=== PATIENT | male | born 1990 | race Caucasian/White ===

== ENCOUNTER 2016-10-02 10:23 | Emergency (ER) | payer OTHER ==
[~2016-10-02] VITALS: Ht 180.3 cm; Wt 126.9 kg
[~2016-10-02 10:23] MED LIST: ALBU1AER9 INH; GLC/500 PO
[2016-10-02 10:27] VITALS: TEMP 36.5; Ht 180.3 cm; Wt 126.9 kg
[2016-10-02] MEDS ORDERED: IBUPROFEN 800 MG TAB PO STA (10:40)
--- NOTE | 2016-10-02 10:47 | EMERGENCY ROOM VISIT NOTE ---
ED Visit Note First contact with patient: 10:33 CHIEF COMPLAINT: Finger injury HISTORY OF PRESENT ILLNESS: This 26-year-old male patient presents to the emergency department after injuring the right second finger this morning at work. 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 The patient rates the pain as throbbing and 10/10. The patient has minimal range of motion of the finger due to pain. No numbness or tingling. No lacerations. No other injuries. The patient has not had previous fracture to this finger. The patient has taken nothing for the pain. REVIEW OF SYSTEMS: A 6 system review of systems was completed with positives and pertinent negatives in the HPI. ALLERGIES: See chart MEDICATIONS: See chart PMH: See chart SOCIAL HISTORY: See chart PHYSICAL EXAM: Vital Signs: Reviewed Nurse's notes, vital signs stable. GENERAL : Pleasant and cooperative, in no acute distress, but appears to be in pain, well-developed, well-nourished. MUSCULOSKELETAL: There is no deformity of the right second finger. The patient has intact flexion and intact extension of the right second finger and strength to resistance is intact. The PIP joint is maximally tender. There is no ligamentous instability. There is no laceration. Capillary refill less than 2 seconds. No tenderness of the remaining fingers or hand. Full range of motion of the wrist. NEURO: Alert and oriented to person, place, and time. Normal sensation to light and sharp touch. EMERGENCY DEPARTMENT COURSE: I examined the patient. Differential diagnosis includes contusion, fracture, crush injury. An x-ray of the right second finger was reviewed by myself and radiologist and showed no acute fracture, soft tissue swelling. The finger was immobilized with a metal splint by entry level lab technician under my direction and the position was satisfactory. Neurovascular status rechecked and intact. The patient was discharged home in good condition. Problem List Medical Problems: (1) Type 2 diabetes mellitus Status: Chronic Surgical Problems: (1) Hx of appendectomy Status: Resolved (2) Hx of cholecystectomy Status: Resolved Current/Historical Medications Scheduled Atorvastatin (Lipitor), 20 MG PO HS Lisinopril/Hctz (Zestoretic 20MG/12.5MG), 1 TAB PO DAILY Metformin Hcl (Glucophage), 500 MG PO HS Metformin Hcl (Glucophage), 1,000 MG PO BID Metoprolol Tartrate (Lopressor), 50 MG PO BID Montelukast Sodium (Singulair), 10 MG PO HS Scheduled PRN Albuterol Hfa (Ventolin Hfa), 2 PUFFS INH Q4H PRN for SOB/Wheezing Allergies Coded Allergies: Cefuroxime (Verified Allergy, Severe, throat swells, 10/02/16) Morphine (Verified Allergy, Severe, "THROAT SWELLS", 10/02/16) Penicillins (Verified Allergy, Unknown, throat swells, 10/02/16) Sulfa Antibiotics (Verified Allergy, Unknown, throat swells, 10/02/16) Vital Signs Date Time Temp Pulse Resp B/P (MAP) Pulse Ox O2 Delivery O2 Flow Rate FiO2 10/02/16 10:27 36.5 67 18 130/82 96 Room Air Medications Administered Medications (Trade) Dose Ordered Sig/Kb Route Start Time Stop Time Status Last Admin Dose Admin Ibuprofen (Motrin Tab) 800 mg NOW STAT PO 10/02/16 10:40 10/02/16 10:41 DC 10/02/16 10:50 800 MG Departure Information Impression Primary Impression: Contusion of right index finger without damage to nail, initial encounter Dispostion Home / Self-Care Condition GOOD Referrals Byron Devlin D.O. (PCP) Forms WORK / SCHOOL INSTRUCTIONS, HOME CARE DOCUMENTATION FORM, IMPORTANT VISIT INFORMATION Patient Instructions [facility] [place] [employer] Additional Instructions Ice and elevation for 24-48 hrs. Wear the splint for comfort. Ibuprofen 600 mg and Tylenol 1000 mg every 8 hrs as needed for pain. Follow up with your family doctor or an orthopedic surgeon if symptoms persist in 5-7 days.
--- NOTE | 2016-10-02 11:20 | DIAGNOSTIC IMAGING REPORT ---
RIGHT FINGER(S) MIN 2 VIEWS ROUTINE CLINICAL HISTORY: Right second finger injury. COMPARISON: Right hand radiographs February 21, 2016. FINDINGS: Alignment of the right second finger is anatomic. No acute fracture is identified. IMPRESSION: No acute fracture or dislocation of the right second finger. Electronically signed by: Orville Johnson M.D. 10/02/2016 11:18 AM Dictated Date/Time: 10/02/2016 11:16 AM
[2016-10-02 12:15] VITALS: BP 111/55; PULSE 57; O2SAT 97
[2016-12-30] MEDS ORDERED: MONT1TAB3 PO (10:46)
[2016-12-30] MEDS ORDERED: LISI-787 PO (10:46)
[2016-12-30] MEDS ORDERED: METO-551 PO (10:46)
[2016-12-30] MEDS ORDERED: ATOR-22 PO (10:46)
[2016-12-30] MEDS ORDERED: VNTHFA/IN INH (10:46)
[2016-12-30] MEDS ORDERED: METF-384 PO (10:46)
[2017-03-02] MEDS ORDERED: ASPI81TA28 PO (21:55)
== END 2016-10-02 12:17 | disposition home or self-care (01) ==
LOC: C.EDB 10:25 → C.EDD 12:17
DX: S60.021A Contusion of right index finger without damage to nail, initial encounter (principal); W23.0XXA Caught, crushed, jammed, or pinched between moving objects, initial encounter; Y92.89 Other specified places as the place of occurrence of the external cause; Y99.0 Civilian activity done for income or pay; E11.9 Type 2 diabetes mellitus without complications; Z90.49 Acquired absence of other specified parts of digestive tract; Z98.890 Other specified postprocedural states; Z79.84 Long term (current) use of oral hypoglycemic drugs; Z79.899 Other long term (current) drug therapy; Z88.0 Allergy status to penicillin; Z88.2 Allergy status to sulfonamides; Z88.5 Allergy status to narcotic agent; Z88.8 Allergy status to other drugs, medicaments and biological substances

== ENCOUNTER 2016-12-15 13:24 | Emergency (ER) | payer OTHER ==
[~2016-12-15] VITALS: Ht 180.3 cm; Wt 128.6 kg
[~2016-12-15 13:24] MED LIST changes: -ALBU1AER9 INH
[2016-12-15 13:33] VITALS: TEMP 36.7; Ht 180.3 cm; Wt 128.6 kg
[2016-12-15] MEDS ORDERED: ONDANSETRON INJ 2 MG/ML 2 ML VIAL IV STA (14:47)
[2016-12-15] MEDS ORDERED: SODIUM CHLORIDE 0.9% 1000ML 1,000 ML IV STA (14:47)
--- NOTE | 2016-12-15 14:51 | EMERGENCY ROOM VISIT NOTE ---
History Report prepared by Jonathan: Armin Rollins Under the Supervision of: Lor StephensO. First contact with patient: 14:37 Chief Complaint: ABDOMINAL PAIN Stated Complaint: STOMACH/SIDE PAIN, CHEST PAIN, SOB,CHEST TIGHTNESS Nursing Triage Summary: triage note: pt reports left abd pain. pt reports feeling short of breath and taking 4 breathing tx with no relief. History of Present Illness The patient is a 26 year old male who presents to the Emergency Room with complaints of persistent left-sided abdominal pain that started around 2029 last night. He says that the abdominal pain has been constant, and has been associated with bad chest tightness. The patient adds that the chest tightness has been constant as well. The patient says that he has been short of breath, and took multiple breathing treatments with no relief. He notes that he has had a minimal cough and has been shivering. He denies any back pain, fevers, urinary symptoms, melena or diarrhea. The patient says that he was admitted 2 years ago in 2 different hospitals for an inability to keep anything down, and ended up having his gallbladder removed, which took care of his abdominal issues. The patient says that he has no history of bowel infections. He takes medications daily for hypertension, hyperlipidemia, or diabetes. The patient chews tobacco and rarely drinks alcohol. Source of History: patient Onset: 2029 last night Position: abdomen (left) Timing: constant, other (persistent) Associated Symptoms: + cough, + chest pain, + SOB, No fevers, No back pain, No melena, No diarrhea, No urinary symptoms Note: Associated symptoms: Shivering. Review of Systems See HPI for pertinent positives & negatives. A total of 10 systems reviewed and were otherwise negative. Past Medical & Surgical Medical Problems: (1) Type 2 diabetes mellitus Surgical Problems: (1) Hx of appendectomy (2) Hx of cholecystectomy Family History Heart disease Social History Smoking Status: Former Smoker Smokeless Tobacco Use: Yes Alcohol Use: occasionally Drug Use: none Marital Status: Housing Status: lives with family Current/Historical Medications Scheduled Atorvastatin (Lipitor), 20 MG PO HS Lisinopril/Hctz (Zestoretic 20MG/12.5MG), 1 TAB PO DAILY Metformin Hcl (Glucophage), 1,000 MG PO BID Metoprolol Tartrate (Lopressor), 50 MG PO BID Montelukast Sodium (Singulair), 10 MG PO HS Scheduled PRN Albuterol Hfa (Ventolin Hfa), 2 PUFFS INH Q4H PRN for SOB/Wheezing Oxycodone Immediate Rel Tab (Roxicodone Ir), 1-2 TAB PO Q4H PRN for Severe Pain Allergies Coded Allergies: Cefuroxime (Verified Allergy, Severe, throat swells, 10/02/16) Morphine (Verified Allergy, Severe, "THROAT SWELLS", 10/02/16) Penicillins (Verified Allergy, Unknown, throat swells, 10/02/16) Sulfa Antibiotics (Verified Allergy, Unknown, throat swells, 10/02/16) Physical Exam Vital Signs Date Time Temp Pulse Resp B/P (MAP) Pulse Ox O2 Delivery O2 Flow Rate FiO2 12/15/16 16:27 75 20 154/94 96 Room Air 12/15/16 15:55 71 12/15/16 14:59 91 20 148/100 98 Room Air 12/15/16 13:33 36.7 84 20 179/99 95 Room Air Physical Exam GENERAL: Patient is awake, alert, mildly anxious appearing and uncomfortable. EYES: The conjunctivae are clear. The pupils are round and reactive. EARS, NOSE, MOUTH AND THROAT: The nose is without any evidence of any deformity. Mucous membranes are moist tongue is midline NECK: The neck is nontender and supple. RESPIRATORY: Normal respiratory effort is noted there is no evidence of wheezing rhonchi or rales CARDIOVASCULAR: Regular rate and rhythm noted there no murmurs rubs or gallops normal S1 normal S2 GASTROINTESTINAL: The abdomen is mildly distended but soft. Tenderness over left lower quadrant, no guarding or rigidity appreciated. BACK: No midline tenderness or or step-off noted range of motion in flexion extension as well as rotation no signs of muscle spasm noted MUSCULOSKELETAL/EXTREMITIES: There is no evidence of gross deformity full range of motion is noted in the hips and shoulders SKIN: There is no obvious evidence of any rash. There are no petechiae, pallor or cyanosis noted. NEUROLOGIC: Patient is awake alert and oriented x3. Medical Decision & Procedures ER Provider Diagnostic Interpretation: Radiology results as stated below per my review and radiologist interpretation: CHEST ONE VIEW PORTABLE CLINICAL HISTORY: 26 years-old Male presenting with ABDOMINAL PAIN/GI. TECHNIQUE: Portable upright AP view of the chest was obtained. COMPARISON: 07/30/2015. FINDINGS: Cardiomediastinal silhouette normal. Lungs and pleural spaces clear. Osseous structures normal. Upper abdomen normal. IMPRESSION: 1. No acute cardiopulmonary disease. Electronically signed by: Willi Suresh M.D. 12/15/2016 3:19 PM Dictated Date/Time: 12/15/2016 3:19 PM ABD/PELVIS NO IV OR ORAL CONT CLINICAL HISTORY: 26 years-old Male presenting with left flank pain, history of cholecystectomy. TECHNIQUE: Multidetector CT of the abdomen and pelvis was performed without the use of intravenous contrast. IV contrast: None. A dose lowering technique was used consistent with the principles of ALARA (as low as reasonably achievable). COMPARISON: None. CT DOSE (mGy.cm): The estimated cumulative dose is 1316.50 mGy.cm. FINDINGS: [employer] topogram: Cholecystectomy clips noted. Lung bases: Lung bases clear. No pericardial or pleural effusion. Liver: Normal morphology. Hepatic steatosis. Biliary: No gross biliary ductal dilatation allowing for noncontrast technique. Gallbladder surgically absent. Pancreas: Normal. Spleen: Mildly enlarged measuring 14 cm in maximal sagittal dimension. Adrenal glands: Normal. Kidneys and ureters: Nonobstructing 2 to 3 mm calculus in the interpolar region of the left kidney. No hydronephrosis. Ureters normal. Bladder: Incompletely evaluated secondary to underdistention. Pelvic organs: Prostate and seminal vesicles normal. Bowel: Limited sigmoid diverticula. Postsurgical changes of appendectomy. No bowel obstruction. Peritoneal cavity: No free fluid or intraperitoneal gas. Vasculature: Normal noncontrast appearance. Lymph nodes: Prominent nonspecific portacaval lymph node, possibly reactive. Abdominal wall: Normal. Musculoskeletal: Minimal anterior vertebral body height loss of lower thoracic vertebral bodies likely within the range of normal. No acute osseous injury or destructive osseous lesion. IMPRESSION: 1. Hepatic steatosis. 2. Mild splenomegaly. 3. 2 to 3 mm nonobstructing left renal calculus. Electronically signed by: Willi Suresh M.D. 12/15/2016 3:27 PM Dictated Date/Time: 12/15/2016 3:21 PM Laboratory Results 12/15/16 14:50 Red Blood Count 5.79, Mean Corpuscular Volume 87.6, Mean Corpuscular Hemoglobin 32.5, Mean Corpuscular Hemoglobin Concent 37.1, Mean Platelet Volume 10.3, Neutrophils (%) (Auto) 66.1, Lymphocytes (%) (Auto) 21.8, Monocytes (%) (Auto) 8.7, Eosinophils (%) (Auto) 2.2, Basophils (%) (Auto) 0.8, Neutrophils # (Auto) 6.88, Lymphocytes # (Auto) 2.27, Monocytes # (Auto) 0.91, Eosinophils # (Auto) 0.23, Basophils # (Auto) 0.08 12/15/16 14:50 Test 12/15/16 14:50 White Blood Count 10.41 K/uL (4.8-10.8) Red Blood Count 5.79 M/uL (4.7-6.1) Hemoglobin 18.8 g/dL (14.0-18.0) Hematocrit 50.7 % (42-52) Mean Corpuscular Volume 87.6 fL (80-100) Mean Corpuscular Hemoglobin 32.5 pg (25-34) Mean Corpuscular Hemoglobin Concent 37.1 g/dl (32-36) Platelet Count 123 K/uL (130-400) Mean Platelet Volume 10.3 fL (7.4-10.4) Neutrophils (%) (Auto) 66.1 % Lymphocytes (%) (Auto) 21.8 % Monocytes (%) (Auto) 8.7 % Eosinophils (%) (Auto) 2.2 % Basophils (%) (Auto) 0.8 % Neutrophils # (Auto) 6.88 K/uL (1.4-6.5) Lymphocytes # (Auto) 2.27 K/uL (1.2-3.4) Monocytes # (Auto) 0.91 K/uL (0.11-0.59) Eosinophils # (Auto) 0.23 K/uL (0-0.5) Basophils # (Auto) 0.08 K/uL (0-0.2) RDW Standard Deviation 41.3 fL (36.4-46.3) RDW Coefficient of Variation 12.9 % (11.5-14.5) Immature Granulocyte % (Auto) 0.4 % Immature Granulocyte # (Auto) 0.04 K/uL (0.00-0.02) Prothrombin Time 10.0 SECONDS (9.0-12.0) Prothromb Time International Ratio 0.9 (0.9-1.1) Activated Partial Thromboplast Time 25.7 SECONDS (21.0-31.0) Partial Thromboplastin Ratio 1.0 Urine Color YELLOW Urine Appearance CLEAR (CLEAR) Urine pH 7.0 (4.5-7.5) Urine Specific [place] 1.039 (1.000-1.030) Urine Protein 1+ (NEG) Urine Glucose (UA) 3+ (NEG) Urine Ketones NEG (NEG) Urine Occult Blood NEG (NEG) Urine Nitrite NEG (NEG) Urine Bilirubin NEG (NEG) Urine Urobilinogen NEG (NEG) Urine Leukocyte Esterase NEG (NEG) Urine WBC (Auto) 0 /hpf (0-5) Urine RBC (Auto) 0-4 /hpf (0-4) Urine Hyaline Casts (Auto) 0 /lpf (0-5) Urine Epithelial Cells (Auto) 0-5 /lpf (0-5) Urine Bacteria (Auto) NEG (NEG) Anion Gap 9.0 mmol/L (3-11) Est Creatinine Clear Calc Drug Dose 181.0 ml/min Estimated GFR () 140.7 Estimated GFR (Non- 121.4 BUN/Creatinine Ratio 9.5 (10-20) Calcium Level 9.0 mg/dl (8.5-10.1) Total Bilirubin 0.8 mg/dl (0.2-1) Direct Bilirubin 0.2 mg/dl (0-0.2) Aspartate Amino Transf (AST/SGOT) 45 U/L (15-37) Alanine Aminotransferase (ALT/SGPT) 92 U/L (12-78) Alkaline Phosphatase 60 U/L (45-117) Troponin I < 0.015 ng/ml (0-0.045) Total Protein 7.5 gm/dl (6.4-8.2) Albumin 3.6 gm/dl (3.4-5.0) Lipase 80 U/L (73-393) Laboratory results per my review. Medications Administered Medications (Trade) Dose Ordered Sig/Kb Route Start Time Stop Time Status Last Admin Dose Admin Sodium Chloride 1,000 ml @ 999 mls/hr Q1H1M STAT IV 12/15/16 14:47 12/15/16 15:47 DC 12/15/16 14:55 999 MLS/HR Ondansetron HCl (Zofran Inj) 4 mg NOW STAT IV 12/15/16 14:47 12/15/16 14:48 DC 12/15/16 14:55 4 MG Hydromorphone HCl (Dilaudid Inj) 0.5 mg Q30M PRN IV 12/15/16 15:00 12/15/16 16:37 DC 12/15/16 14:56 0.5 MG ECG Indication: abdominal pain Rate (beats per minute): 75 Rhythm: normal sinus Findings: no ectopy, other (no acute ST segment abnormalities) Change: no significant change (compared to July 30 2015) ED Course 1440: The patient was evaluated in room B5. A complete history and physical examination were performed. 1447: Ordered Zofran Inj 4 mg IV, NSS 1000 ml @ 999 mls/hr IV. 1500: Ordered Dilaudid Inj 0.5 mg IV PRN. 1605: Upon reevaluation, the patient is feeling better. I discussed the results and treatment plan with him. He verbalized agreement of the treatment plan. He was discharged home. Medical Decision Differential diagnosis: Etiologies such as appendicitis, diverticulitis, PUD, biliary pathology, UTI, pancreatitis, obstruction, mesenteric ischemia, aortic pathology, infections, inflammatory bowel disease, renal colic, as well as others were entertained. Nursing notes reviewed. The patient is a 27-year-old male who presented to emergency department for evaluation of left-sided abdominal pain. The patient's physical exam was consistent with reproducible left lower quadrant abdominal pain. He also complained of chest pain and chest tightness. He has had ongoing discomfort in his chest for the last few days. I discussed the patient's laboratory and radiographic studies with him. I also discussed the limitations of the emergency department workup for chest pain with him. He was encouraged to rest and avoid any strenuous activity. He was also encouraged to continue all medications as prescribed. He was also encouraged to follow-up with his family doctor this week for reevaluation but return to the emergency Department immediately if symptoms change worsen or the need arises. Medication Reconcilliation Current Medication List: was personally reviewed by me Blood Pressure Screening Patient's blood pressure: Elevated blood pressure Blood pressure disposition: Elevated BP felt to be situational Impression Primary Impression: Chest pain Additional Impression: LLQ abdominal pain Scribe Attestation The scribe's documentation has been prepared under my direction and personally reviewed by me in its entirety. I confirm that the note above accurately reflects all work, treatment, procedures, and medical decision making performed by me. Departure Information Dispostion Home / Self-Care Prescriptions Oxycodone Immediate Rel Tab (ROXICODONE IR) 5 Mg Tab 1-2 TAB PO Q4H Y for Severe Pain, #15 TAB Prov: Kadeem Blackwood, DO 12/15/16 Referrals Byron Devlin D.O. (PCP) Forms HOME CARE DOCUMENTATION FORM, IMPORTANT VISIT INFORMATION, Work Instructions Patient Instructions Abdominal Pain, ED Chest Pain Atypical Unkn Cause, My [facility] Additional Instructions Continue all medications as prescribed. Rest and avoid any strenuous activity. Return to emergency room immediately if symptoms change worsen or the need arises. Follow-up with your family doctor soon as possible. Problem Qualifiers Primary Impression: Chest pain Chest pain type: unspecified Qualified Codes: R07.9 - Chest pain, unspecified
[2016-12-15] MEDS ORDERED: HYDROmorphone INJ 0.5 MG/0.5 ML SYR IV PRN (15:00)
[2016-12-15 15:01] LABS: BASO % 0.8 %; BASO ABS # 0.08 K/uL (0-0.2); COMPLETE YES; EOS % 2.2 %; HEMATOCRIT 50.7 % (42-52); IG% 0.4 %; LYMPH % 21.8 %; LYMPH ABS # 2.27 K/uL (1.2-3.4); MEAN CELL VOLUME 87.6 fL (80-100); MEAN CORPUSCULAR HEMOGLOBIN 32.5 pg (25-34); MEAN CORPUSCULAR HGB CONC 37.1 g/dl (32-36); MEAN PLATELET VOLUME 10.3 fL (7.4-10.4); MONO % 8.7 %; NEUT % 66.1 %; PLATELET COUNT 123 K/uL (130-400); RED BLOOD COUNT 5.79 M/uL (4.7-6.1); WHITE BLOOD COUNT 10.41 K/uL (4.8-10.8)
[2016-12-15 15:04] LABS: URINE APPEARANCE CLEAR (CLEAR); URINE BILIRUBIN NEG (NEG); URINE COLOR YELLOW; URINE EPITHELIAL CELL AUTO 0-5 /lpf (0-5); URINE NITRITE NEG (NEG); URINE SPECIFIC GRAVITY 1.039 (1.000-1.030); UROBILINOGEN NEG (NEG)
[2016-12-15 15:06] LABS: MANUAL MICROSCOPIC REQUIRED? NO; REVIEW REQ? NO
[2016-12-15 15:09] LABS: INR 0.9 (0.9-1.1)
--- NOTE | 2016-12-15 15:20 | DIAGNOSTIC IMAGING REPORT ---
CHEST ONE VIEW PORTABLE CLINICAL HISTORY: 26 years-old Male presenting with ABDOMINAL PAIN/GI. TECHNIQUE: Portable upright AP view of the chest was obtained. COMPARISON: 07/30/2015. FINDINGS: Cardiomediastinal silhouette normal. Lungs and pleural spaces clear. Osseous structures normal. Upper abdomen normal. IMPRESSION: 1. No acute cardiopulmonary disease. Electronically signed by: Willi Suresh M.D. 12/15/2016 3:19 PM Dictated Date/Time: 12/15/2016 3:19 PM
[2016-12-15 15:28] LABS: ALKALINE PHOSPHATASE 60 U/L (45-117); BLOOD UREA NITROGEN 8 mg/dl (7-18); BUN/CREATININE RATIO 9.5 (10-20); CARBON DIOXIDE 29 mmol/L (21-32); CHLORIDE 99 mmol/L (98-107); CREATININE 0.86 mg/dl (0.60-1.40); GLUCOSE 265 mg/dl (70-99)
--- NOTE | 2016-12-15 15:29 | DIAGNOSTIC IMAGING REPORT ---
ABD/PELVIS NO IV OR ORAL CONT CLINICAL HISTORY: 26 years-old Male presenting with left flank pain, history of cholecystectomy. TECHNIQUE: Multidetector CT of the abdomen and pelvis was performed without the use of intravenous contrast. IV contrast: None. A dose lowering technique was used consistent with the principles of ALARA (as low as reasonably achievable). COMPARISON: None. CT DOSE (mGy.cm): The estimated cumulative dose is 1316.50 mGy.cm. FINDINGS: [employer] topogram: Cholecystectomy clips noted. Lung bases: Lung bases clear. No pericardial or pleural effusion. Liver: Normal morphology. Hepatic steatosis. Biliary: No gross biliary ductal dilatation allowing for noncontrast technique. Gallbladder surgically absent. Pancreas: Normal. Spleen: Mildly enlarged measuring 14 cm in maximal sagittal dimension. Adrenal glands: Normal. Kidneys and ureters: Nonobstructing 2 to 3 mm calculus in the interpolar region of the left kidney. No hydronephrosis. Ureters normal. Bladder: Incompletely evaluated secondary to underdistention. Pelvic organs: Prostate and seminal vesicles normal. Bowel: Limited sigmoid diverticula. Postsurgical changes of appendectomy. No bowel obstruction. Peritoneal cavity: No free fluid or intraperitoneal gas. Vasculature: Normal noncontrast appearance. Lymph nodes: Prominent nonspecific portacaval lymph node, possibly reactive. Abdominal wall: Normal. Musculoskeletal: Minimal anterior vertebral body height loss of lower thoracic vertebral bodies likely within the range of normal. No acute osseous injury or destructive osseous lesion. IMPRESSION: 1. Hepatic steatosis. 2. Mild splenomegaly. 3. 2 to 3 mm nonobstructing left renal calculus. Electronically signed by: Willi Suresh M.D. 12/15/2016 3:27 PM Dictated Date/Time: 12/15/2016 3:21 PM
[2016-12-15 15:43] LABS: AST/SGOT 45 U/L (15-37)
[2016-12-15 15:44] LABS: ALT/SGPT 92 U/L (12-78); POTASSIUM 3.9 mmol/L (3.5-5.1); SODIUM 137 mmol/L (136-145)
[2016-12-15] MEDS ORDERED: OXYC1TAB3 PO (16:16)
[2016-12-15 16:27] VITALS: BP 154/94; PULSE 75; O2SAT 96
[2016-12-30] MEDS ORDERED: ATOR-22 PO (10:46)
[2016-12-30] MEDS ORDERED: LISI-787 PO (10:46)
[2016-12-30] MEDS ORDERED: MONT1TAB3 PO (10:46)
[2016-12-30] MEDS ORDERED: METF-384 PO (10:46)
[2016-12-30] MEDS ORDERED: VNTHFA/IN INH (10:46)
[2016-12-30] MEDS ORDERED: METO-551 PO (10:46)
== END 2016-12-15 16:28 | disposition home or self-care (01) ==
LOC: C.EDB 13:26
DX: R07.9 Chest pain, unspecified (principal); R10.32 Left lower quadrant pain; E11.9 Type 2 diabetes mellitus without complications; Z90.49 Acquired absence of other specified parts of digestive tract; Z98.890 Other specified postprocedural states; Z87.891 Personal history of nicotine dependence; Z79.84 Long term (current) use of oral hypoglycemic drugs; Z79.899 Other long term (current) drug therapy; Z88.0 Allergy status to penicillin; Z88.2 Allergy status to sulfonamides; Z88.5 Allergy status to narcotic agent; Z88.8 Allergy status to other drugs, medicaments and biological substances; Z82.49 Family history of ischemic heart disease and other diseases of the circulatory system

== ENCOUNTER 2016-12-17 17:22 | Emergency (ER) | payer OTHER ==
[~2016-12-17] VITALS: Ht 180.3 cm; Wt 128.1 kg
[~2016-12-17 17:22] MED LIST changes: -GLC/500 PO; +OXYC1TAB3 PO
[2016-12-17 17:28] VITALS: TEMP 36.9; Ht 180.3 cm; Wt 128.1 kg
[2016-12-17] MEDS ORDERED: ONDANSETRON INJ 2 MG/ML 2 ML VIAL IV STA (17:55)
[2016-12-17] MEDS ORDERED: MoRPHine SULFATE 10 MG/ML CARP/VIAL IV STA (17:55)
[2016-12-17] MEDS ORDERED: SODIUM CHLORIDE 0.9% 1000ML 1,000 ML IV STA (17:55)
--- NOTE | 2016-12-17 17:57 | EMERGENCY ROOM VISIT NOTE ---
History Report prepared by Jonathan: Portillo Gibbons Under the Supervision of: Dr. Orlando Churchill M.D. First contact with patient: 17:37 Chief Complaint: ABDOMINAL PAIN Stated Complaint: SEVERE L ABD PAIN, HERE 2 DAYS AGO History of Present Illness The patient is a 26 year old white male with a past medical history of hypertension, hyperlipidemia, asthma, and a 2-3 mm nonobstructing kidney stone without hydronephrosis via CT who presents to the ED with a cc of left sided abdominal pain beginning recently. Positive chills, nausea, and pain with urination. Negative trauma, falls, fever, penile pain, scrotal pain, testicular pain, hematochezia, back pain. The patient was here in the ED 3 days ago with chest tightness. He received a CT scan that showed a left sided kidney stone. Since then, he has not had an appetite and his abdominal pain began. His pain worsens with movement. He does not take any blood thinners. Source of History: patient Onset: recently Position: abdomen (left) Symptom Intensity: moderate Quality: sharp Timing: constant Modifying Factors (Worsening): movement Associated Symptoms: + chills, + nausea, + urinary symptoms, No fevers, No sorethroat, No vomiting, No back pain, No hematochezia Review of Systems See HPI for pertinent positives and negatives. A total of ten systems were reviewed and were otherwise negative. Past Medical & Surgical Medical Problems: (1) Type 2 diabetes mellitus Surgical Problems: (1) Hx of appendectomy (2) Hx of cholecystectomy Family History Heart disease Social History Smoking Status: Former Smoker Smokeless Tobacco Use: Yes Alcohol Use: occasionally Drug Use: none Marital Status: Housing Status: lives with family Occupation Status: employed Current/Historical Medications Scheduled Atorvastatin (Lipitor), 20 MG PO HS Lisinopril/Hctz (Zestoretic 20MG/12.5MG), 1 TAB PO DAILY Loratadine (Claritin), 10 MG PO DAILY Metformin Hcl (Glucophage), 1,000 MG PO BID Metoprolol Tartrate (Lopressor), 50 MG PO BID Montelukast Sodium (Singulair), 10 MG PO HS Ondasetron Odt (Zofran Odt), 4 MG SL Q6H Scheduled PRN Albuterol Hfa (Ventolin Hfa), 2 PUFFS INH Q4H PRN for SOB/Wheezing Hydrocodone/Acetaminophen 5MG/325MG ([place] 5MG/325MG), 1 TAB PO TID PRN for Pain Oxycodone Immediate Rel Tab (Roxicodone Ir), 1-2 TAB PO Q4H PRN for Severe Pain Tramadol (Ultram), 1 TAB PO TID PRN for Pain Allergies Coded Allergies: Cefuroxime (Verified Allergy, Severe, throat swells, 12/17/16) Morphine (Verified Allergy, Severe, "THROAT SWELLS", 12/17/16) Penicillins (Verified Allergy, Unknown, throat swells, 12/17/16) Sulfa Antibiotics (Verified Allergy, Unknown, throat swells, 12/17/16) Physical Exam Vital Signs Date Time Temp Pulse Resp B/P (MAP) Pulse Ox O2 Delivery O2 Flow Rate FiO2 12/17/16 21:04 69 18 147/90 96 12/17/16 20:21 72 18 165/82 77 Room Air 12/17/16 17:28 36.9 88 20 171/98 95 Room Air Physical Exam GENERAL: Awake, alert, well-appearing, NAD, obese HENT: Normocephalic, atraumatic. Dental stains secondary to tobacco use. EYES: Normal conjunctiva. Sclera non-icteric. NECK: Supple. No nuchal rigidity. FROM. RESPIRATORY: CTAB, no rhonchi, wheezing, crackles CARDIAC: RRR, no MRG ABDOMEN: Soft, left sided LLQ tenderness to palpation, no obvious masses or erythema. ND, BS+, No suprapubic tenderness. No scrotal, penile, or testicular tenderness. No scrotal swelling. MSK: No chest wall TTP, no LE edema NEURO: GCS 15, CN 2-12 intact, moves all 4s on command SKIN: No rash or jaundice noted. Medical Decision & Procedures Laboratory Results 12/17/16 18:03 Red Blood Count 5.47, Mean Corpuscular Volume 88.5, Mean Corpuscular Hemoglobin 32.7, Mean Corpuscular Hemoglobin Concent 37.0, Mean Platelet Volume 10.9, Neutrophils (%) (Auto) 58.3, Lymphocytes (%) (Auto) 28.8, Monocytes (%) (Auto) 8.7, Eosinophils (%) (Auto) 2.9, Basophils (%) (Auto) 0.9, Neutrophils # (Auto) 4.70, Lymphocytes # (Auto) 2.32, Monocytes # (Auto) 0.70, Eosinophils # (Auto) 0.23, Basophils # (Auto) 0.07 12/17/16 18:03 12/17/16 20:21 Test 12/17/16 18:03 12/17/16 18:05 12/17/16 20:21 White Blood Count 8.05 K/uL (4.8-10.8) Red Blood Count 5.47 M/uL (4.7-6.1) Hemoglobin 17.9 g/dL (14.0-18.0) Hematocrit 48.4 % (42-52) Mean Corpuscular Volume 88.5 fL (80-100) Mean Corpuscular Hemoglobin 32.7 pg (25-34) Mean Corpuscular Hemoglobin Concent 37.0 g/dl (32-36) Platelet Count 133 K/uL (130-400) Mean Platelet Volume 10.9 fL (7.4-10.4) Neutrophils (%) (Auto) 58.3 % Lymphocytes (%) (Auto) 28.8 % Monocytes (%) (Auto) 8.7 % Eosinophils (%) (Auto) 2.9 % Basophils (%) (Auto) 0.9 % Neutrophils # (Auto) 4.70 K/uL (1.4-6.5) Lymphocytes # (Auto) 2.32 K/uL (1.2-3.4) Monocytes # (Auto) 0.70 K/uL (0.11-0.59) Eosinophils # (Auto) 0.23 K/uL (0-0.5) Basophils # (Auto) 0.07 K/uL (0-0.2) RDW Standard Deviation 40.9 fL (36.4-46.3) RDW Coefficient of Variation 12.6 % (11.5-14.5) Immature Granulocyte % (Auto) 0.4 % Immature Granulocyte # (Auto) 0.03 K/uL (0.00-0.02) Anion Gap 9.0 mmol/L (3-11) Est Creatinine Clear Calc Drug Dose 184.9 ml/min Estimated GFR () 142.0 Estimated GFR (Non- 122.6 BUN/Creatinine Ratio 11.5 (10-20) Calcium Level 8.8 mg/dl (8.5-10.1) Total Bilirubin 0.7 mg/dl (0.2-1) Alanine Aminotransferase (ALT/SGPT) 91 U/L (12-78) Alkaline Phosphatase 64 U/L (45-117) Total Protein 7.2 gm/dl (6.4-8.2) Albumin 3.5 gm/dl (3.4-5.0) Lipase 99 U/L (73-393) Beta-Hydroxybutyric Acid 1.15 mg/dL (0.2-2.81) Urine Color YELLOW Urine Appearance CLEAR (CLEAR) Urine pH 5.0 (4.5-7.5) Urine Specific [place] 1.034 (1.000-1.030) Urine Protein NEG (NEG) Urine Glucose (UA) 3+ (NEG) Urine Ketones NEG (NEG) Urine Occult Blood NEG (NEG) Urine Nitrite NEG (NEG) Urine Bilirubin NEG (NEG) Urine Urobilinogen NEG (NEG) Urine Leukocyte Esterase NEG (NEG) Direct Bilirubin mg/dl (0-0.2) Aspartate Amino Transf (AST/SGOT) 49 U/L (15-37) Chemistry Specimen Hemolysis Laboratory results reviewed by me Medications Administered Medications (Trade) Dose Ordered Sig/Kb Route Start Time Stop Time Status Last Admin Dose Admin Sodium Chloride 1,000 ml @ 999 mls/hr Q1H1M STAT IV 12/17/16 17:55 12/17/16 18:55 DC 12/17/16 18:10 999 MLS/HR Ondansetron HCl (Zofran Inj) 4 mg NOW STAT IV 12/17/16 17:55 12/17/16 17:58 DC 12/17/16 18:10 4 MG Fentanyl Citrate (Fentanyl Inj) 100 mcg NOW ONCE IV 12/17/16 18:15 12/17/16 18:16 DC 12/17/16 18:18 100 MCG Acetaminophen/ Hydrocodone Bitart ([place] 10/325 Tab) 1 tab NOW ONCE PO 12/17/16 19:15 12/17/16 19:16 DC 12/17/16 19:13 1 TAB Tramadol HCl (Ultram Tab) 50 mg NOW STAT PO 12/17/16 19:06 12/17/16 19:07 DC 12/17/16 19:14 50 MG Ibuprofen (Advil Tab) 400 mg NOW STAT PO 12/17/16 19:06 12/17/16 19:07 DC 12/17/16 19:14 400 MG Hydromorphone HCl (Dilaudid Inj) 0.5 mg NOW STAT IV 12/17/16 19:57 12/17/16 19:58 DC 12/17/16 20:17 0.5 MG Acetaminophen/ Hydrocodone Bitart ([place] 5/325mg Home Pack) 1 homepack UD ONCE PO 12/17/16 21:15 12/17/16 21:16 DC 12/17/16 21:15 1 HOMEPACK Ondansetron HCl (ZOFRAN ODT 4MG Home Pack) 1 homepack UD ONCE PO 12/17/16 21:15 12/17/16 21:16 DC 12/17/16 21:15 1 HOMEPACK ED Course 173: The patient was evaluated in room A10. A complete history and physical exam was performed. 1951: The patient's nausea has improved, but he is still having some pain. 2100: I reevaluated the patient. Discussed results and discharge instructions: He verbalized understanding and agreement. The patient is ready for discharge. Medical Decision The patient is a 26 year old white male with a past medical history of hypertension, hyperlipidemia, asthma, and a 2-3 mm nonobstructing kidney stone without hydronephrosis via CT who presents to the ED with a cc of left sided abdominal pain beginning recently. Positive chills, nausea, and pain with urination. Negative trauma, falls, fever, penile pain, scrotal pain, testicular pain, hematochezia, back pain. Triage Nursing notes reviewed. The patient's presentation and history were concerning for kidney stone, UTI, ureterolithiasis, diverticulitis, and hernia. Patient was recently seen for some similar symptoms earlier in the week. Patient did have mild nausea but no vomiting. Patient denied any scrotal pain or swelling and no penile pain. Patient has had regular bowel movements and they're without blood was likely diverticulitis given the bowel movements no obstruction. Patient's pain did improve. Patient was noted to have a small nonobstructing renal calculi on his CT was completed 2 days prior. This is likely the most attributable source of his pain in that he had a recent CT scan that was negative and his white count is normal. Patient has fairly unremarkable abdominal labs. Patient did tolerate by mouth. Patient was given medications to help for pain control. Patient was told to return if he had worsening abdominal pain that caused him to vomit profusely, high fever, or inability to tolerate his by mouth medications. Ambulated w/o difficulty. Given f/u, d/c, and return precautions. Medication Reconcilliation Current Medication List: was personally reviewed by me Blood Pressure Screening Patient's blood pressure: Elevated blood pressure Blood pressure disposition: Elevated BP felt to be situational Impression Primary Impression: Left lower quadrant pain Additional Impressions: Nephrolithiasis Encounter for tobacco use cessation counseling Scribe Attestation The scribe's documentation has been prepared under my direction and personally reviewed by me in its entirety. I confirm that the note above accurately reflects all work, treatment, procedures, and medical decision making performed by me. Departure Information Dispostion Home / Self-Care Prescriptions Hydrocodone/Acetaminophen 5MG/325MG ([place] 5MG/325MG) Tab 1 TAB PO TID Y for Pain for 30 Days, #15 TAB PRN PAIN Prov: Orlando Churchill M.D. 12/17/16 Tramadol (Ultram) 50 Mg Tab 1 TAB PO TID Y for Pain for 30 Days, #30 TAB Prov: Orlando Churchill M.D. 12/17/16 Ondasetron Odt (ZOFRAN ODT) 4 Mg Tab 4 MG SL Q6H for Nausea, #12 TAB Prov: Orlando Churchill M.D. 12/17/16 Referrals Byron Devlin D.O. (PCP) Forms HOME CARE DOCUMENTATION FORM, IMPORTANT VISIT INFORMATION Patient Instructions Abdominal Pain, ED Smoking Cessation, Kidney Stones, Kidney Stones - [facility], Kidney Stones Expectant Therapy, [facility] Additional Instructions Please return to the emergency department if you have worsening or recurrent symptoms not amenable to at-home treatment. Please call for a follow-up appointment with her primary care physician. Please take your medications as prescribed. If you have other concerns and/or complaints please feel free to also call your primary care physician's office or return the ED for further evaluation, management, and treatment. He may take up to 800 mg of Motrin or ibuprofen every 6 hours. Please take with food and do not take more than 2 consecutive days. He may take up to 1000 mg of Tylenol or acetaminophen every 6 hours no more than 4000 mg in a 24-hour period. Please make sure that he take your [place] that you take into account the Tylenol in the [place] which is 325 mg per tablet. Work Instructions Return To Work: 1 day Problem Qualifiers
[2016-12-17] MEDS ORDERED: FENTANYL CITRATE INJ 50 MCG/1 ML 2 ML VIAL IV ONE (18:15)
[2016-12-17 18:16] LABS: BASO % 0.9 %; BASO ABS # 0.07 K/uL (0-0.2); COMPLETE YES; EOS % 2.9 %; HEMATOCRIT 48.4 % (42-52); IG% 0.4 %; LYMPH % 28.8 %; LYMPH ABS # 2.32 K/uL (1.2-3.4); MEAN CELL VOLUME 88.5 fL (80-100); MEAN CORPUSCULAR HEMOGLOBIN 32.7 pg (25-34); MEAN PLATELET VOLUME 10.9 fL (7.4-10.4); MONO % 8.7 %; NEUT % 58.3 %; PLATELET COUNT 133 K/uL (130-400); RED BLOOD COUNT 5.47 M/uL (4.7-6.1); WHITE BLOOD COUNT 8.05 K/uL (4.8-10.8)
[2016-12-17 18:24] LABS: URINE APPEARANCE CLEAR (CLEAR); URINE BILIRUBIN NEG (NEG); URINE COLOR YELLOW; URINE NITRITE NEG (NEG); URINE SPECIFIC GRAVITY 1.034 (1.000-1.030); UROBILINOGEN NEG (NEG); ZZUR CULT IF INDIC CLEAN CATCH NO
[2016-12-17 18:41] LABS: MANUAL MICROSCOPIC REQUIRED? NO; REVIEW REQ? NO
[2016-12-17 18:55] LABS: CARBON DIOXIDE 27 mmol/L (21-32)
[2016-12-17] MEDS ORDERED: IBUPROFEN 200 MG TAB PO STA (19:06)
[2016-12-17] MEDS ORDERED: TRAMADOL HCL 50 MG TAB PO STA (19:06)
[2016-12-17 19:07] LABS: BLOOD UREA NITROGEN 10 mg/dl (7-18); BUN/CREATININE RATIO 11.5 (10-20); CALCIUM 8.8 mg/dl (8.5-10.1); SODIUM 135 mmol/L (136-145)
[2016-12-17 19:09] LABS: CHLORIDE 99 mmol/L (98-107)
[2016-12-17 19:13] LABS: ALKALINE PHOSPHATASE 64 U/L (45-117); ALT/SGPT 91 U/L (12-78); CREATININE 0.84 mg/dl (0.60-1.40)
[2016-12-17 19:14] LABS: GLUCOSE 313 mg/dl (70-99)
[2016-12-17] MEDS ORDERED: HYDROCODONE/ACETAMI 10/325 TAB PO ONE (19:15)
[2016-12-17 19:21] LABS: BETA-HYDROXYBUTYRATE 1.15 mg/dL (0.2-2.81)
[2016-12-17] MEDS ORDERED: HYDROmorphone INJ 0.5 MG/0.5 ML SYR IV STA (19:57)
[2016-12-17] MEDS ORDERED: ONDA4TAB10 SL (20:55)
[2016-12-17] MEDS ORDERED: HYDR-5688 PO (20:55)
[2016-12-17] MEDS ORDERED: TRAM-10 PO (20:55)
[2016-12-17 21:04] VITALS: BP 147/90; PULSE 69; O2SAT 96
[2016-12-17 21:13] LABS: AST/SGOT 49 U/L (15-37); POTASSIUM 3.9 mmol/L (3.5-5.1)
[2016-12-17] MEDS ORDERED: NORCO 5/325MG HOME PACK PO ONE (21:15)
[2016-12-17] MEDS ORDERED: ONDANSETRON HOME PACK 4MG OD TAB PO ONE (21:15)
--- NOTE | 2016-12-18 11:44 | Pharmacy Progress Note ---
ED Pharmacist Progress Note Date of Service: Dec 18, 2016. Received call from outpatient pharmacy requesting clarification on whether provider wanted both Tramadol and [place] filled. Per provider note: " Patient was given medications to help for pain control." - pleural "medicationS" noted. Both Tramadol and [place] were listed in discharge meds. Gave verbal confirmation that both Tramadol and [place] can be filled.
[2016-12-30] MEDS ORDERED: METF-384 PO (10:46)
[2016-12-30] MEDS ORDERED: METO-551 PO (10:46)
[2016-12-30] MEDS ORDERED: MONT1TAB3 PO (10:46)
[2016-12-30] MEDS ORDERED: LISI-787 PO (10:46)
[2016-12-30] MEDS ORDERED: VNTHFA/IN INH (10:46)
[2016-12-30] MEDS ORDERED: ATOR-22 PO (10:46)
== END 2016-12-17 21:05 | disposition home or self-care (01) ==
LOC: C.EDB 17:24 → C.EDA 21:05
DX: N20.0 Calculus of kidney (principal); R10.32 Left lower quadrant pain; E11.9 Type 2 diabetes mellitus without complications; I10 Essential (primary) hypertension; E78.5 Hyperlipidemia, unspecified; J45.909 Unspecified asthma, uncomplicated; Z79.84 Long term (current) use of oral hypoglycemic drugs; Z79.899 Other long term (current) drug therapy; Z88.0 Allergy status to penicillin; Z88.2 Allergy status to sulfonamides; Z88.8 Allergy status to other drugs, medicaments and biological substances; Z90.49 Acquired absence of other specified parts of digestive tract; Z98.890 Other specified postprocedural states; Z82.49 Family history of ischemic heart disease and other diseases of the circulatory system

== ENCOUNTER 2016-12-30 17:18 | Emergency (ER) | payer OTHER ==
[~2016-12-30] VITALS: Ht 180.3 cm; Wt 123.9 kg
[~2016-12-30 17:18] MED LIST changes: +ATOR-22 PO; +HYDR-5688 PO; +LISI-787 PO; +METF-384 PO; +METO-551 PO; +MONT1TAB3 PO; +ONDA4TAB10 SL; +TRAM-10 PO; +VNTHFA/IN INH
[2016-12-30 17:46] VITALS: TEMP 36.8; Ht 180.3 cm; Wt 123.9 kg
[2016-12-30] MEDS ORDERED: CLR10 PO (18:01)
[2016-12-30] MEDS ORDERED: KETOROLAC TROMETHAMINE 30 MG/ML VIAL IV STA (19:24)
[2016-12-30] MEDS ORDERED: ONDANSETRON INJ 2 MG/ML 2 ML VIAL IV STA (19:24)
[2016-12-30] MEDS ORDERED: ACETAMINOPHEN IV 100 ML IV ONE (19:30)
[2016-12-30] MEDS ORDERED: SODIUM CHLORIDE 0.9% 1000ML 1,000 ML IV ONE (19:30)
[2016-12-30 19:59] LABS: URINE APPEARANCE CLEAR (CLEAR); URINE BILIRUBIN NEG (NEG); URINE COLOR YELLOW; URINE NITRITE NEG (NEG); URINE SPECIFIC GRAVITY 1.039 (1.000-1.030); UROBILINOGEN NEG (NEG); ZZUR CULT IF INDIC CLEAN CATCH NO
[2016-12-30 20:01] LABS: MANUAL MICROSCOPIC REQUIRED? NO; REVIEW REQ? NO
--- NOTE | 2016-12-30 20:29 | DIAGNOSTIC IMAGING REPORT ---
ABDOMEN LIMITED (US) HISTORY: Pain Left side flank/abd pain. Hx stones. . COMPARISON: CT 12/15/2016 FINDINGS: Pancreas: The pancreas demonstrates a normal echotexture. Liver: Mild fatty infiltration Gallbladder: No gallbladder wall thickening. No gallstones. CBD: 4 mm Right kidney: No hydronephrosis. Left kidney: no evidence for hydronephrosis Spleen: Normal IMPRESSION: No significant abnormality identified within the within the right or left upper quadrant. Normal spleen. Normal kidneys. The above report was generated using voice recognition software. It may contain grammatical, syntax or spelling errors. Electronically signed by: Atul Dimas M.D. 12/30/2016 8:28 PM Dictated Date/Time: 12/30/2016 8:26 PM
[2016-12-30 20:47] LABS: BENZODIAZEPINE, URINE NEG (NEG); COCAINE,URINE NEG (NEG); PHENCYCLIDINE, URINE NEG (NEG)
[2016-12-30 20:56] LABS: HEMATOCRIT 52.4 % (42-52); MEAN CELL VOLUME 85.6 fL (80-100); MEAN CORPUSCULAR HEMOGLOBIN 31.9 pg (25-34); MEAN CORPUSCULAR HGB CONC 37.3 g/dl (32-36); MEAN PLATELET VOLUME 11.3 fL (7.4-10.4); PLATELET COUNT 190 K/uL (130-400); WHITE BLOOD COUNT 10.57 K/uL (4.8-10.8)
[2016-12-30 21:01] LABS: BASO % 0.3 %; BASO ABS # 0.03 K/uL (0-0.2); COMPLETE YES; EOS % 0.9 %; IG% 0.4 %; LYMPH % 28.5 %; LYMPH ABS # 3.01 K/uL (1.2-3.4); MONO % 10.7 %; NEUT % 59.2 %
--- NOTE | 2016-12-30 21:03 | DIAGNOSTIC IMAGING REPORT ---
KUB CLINICAL HISTORY: Left flank pain pain COMPARISON STUDY: No previous studies for comparison. FINDINGS: The soft tissues, psoas shadows, renal outlines and intestinal gas pattern appear normal. There is no evidence for bowel obstruction. No abnormal abdominal calcifications are seen. IMPRESSION: Normal study. The above report was generated using voice recognition software. It may contain grammatical, syntax or spelling errors. Electronically signed by: Atul Dimas M.D. 12/30/2016 9:01 PM Dictated Date/Time: 12/30/2016 9:00 PM
[2016-12-30 21:22] LABS: ALB/GLOB RATIO 1.1 (0.9-2); BUN/CREATININE RATIO 15.6 (10-20); CALCIUM 8.8 mg/dl (8.5-10.1); CREATININE 1.1 mg/dl (0.60-1.40); POTASSIUM 3.4 mmol/L (3.5-5.1)
[2016-12-30] MEDS ORDERED: ONDA4TAB10 SL (21:42)
[2016-12-30] MEDS ORDERED: ONDANSETRON HOME PACK 4MG OD TAB PO ONE (21:45)
[2016-12-30 21:58] VITALS: BP 193/96; PULSE 84; O2SAT 94
[2016-12-30 22:10] LABS: BETA-HYDROXYBUTYRATE 1.06 mg/dL (0.2-2.81)
--- NOTE | 2016-12-31 15:19 | EMERGENCY ROOM VISIT NOTE ---
History First contact with patient: 19:09 Chief Complaint: ABDOMINAL PAIN Stated Complaint: SEVERE LEFT SIDE ABDOMINAL PAIN, HEMATURIA, VOMITI Nursing Triage Summary: Pt reports left sided abd pain since Sat, hematuria x 2 days. N/V. Denies flank or testicle pain. Hx of kidney stones. History of Present Illness The patient is a 26 year old male who presents to the Emergency Room with complaints of left-sided abdominal/flank pain for the past 2 days. The patient states that he did have hematuria, nausea, and vomiting. He reports a history of kidney stones. The patient has not been eating or drinking well because of his symptoms. He rates his overall pain a 10/10 and has not been taking anything [id number] for his symptoms. He does not have a gallbladder or appendix. The patient is diabetic. Review of Systems More than 10 systems were reviewed and otherwise negative with the exception of history of present illness. Past Medical/Surgical History Medical Problems: (1) Type 2 diabetes mellitus Surgical Problems: (1) Hx of appendectomy (2) Hx of cholecystectomy Family History Heart disease Social History Smoking Status: Former Smoker Alcohol Use: occasionally Drug Use: none Marital Status: Housing Status: lives with family Occupation Status: employed Current/Historical Medications Scheduled Atorvastatin (Lipitor), 20 MG PO HS Lisinopril/Hctz (Zestoretic 20MG/12.5MG), 1 TAB PO DAILY Loratadine (Claritin), 10 MG PO DAILY Metformin Hcl (Glucophage), 1,000 MG PO BID Metoprolol Tartrate (Lopressor), 50 MG PO BID Montelukast Sodium (Singulair), 10 MG PO HS Ondasetron Odt (Zofran Odt), 4 MG SL Q6H Ondasetron Odt (Zofran Odt), 4 MG SL Q6H Scheduled PRN Albuterol Hfa (Ventolin Hfa), 2 PUFFS INH Q4H PRN for SOB/Wheezing Tramadol (Ultram), 1 TAB PO TID PRN for Pain Physical Exam Vital Signs Date Time Temp Pulse Resp B/P (MAP) Pulse Ox O2 Delivery O2 Flow Rate FiO2 12/30/16 21:58 84 20 193/96 94 12/30/16 21:29 77 16 171/89 95 Room Air 12/30/16 17:46 36.8 119 18 148/93 95 Room Air Pain Rating (0-10): 10.0 Physical Exam VITALS: Vitals are noted on the nurse's note and reviewed by myself. Vital signs stable. GENERAL: Well-developed, well-nourished, white male, who is in no acute distress and resting comfortably. Patient is cooperative with the examination. NECK: Supple without nuchal rigidity. No lymphadenopathy. No thyromegaly. Cervical spine is nontender. HEART: Regular rate and rhythm without murmurs gallops or rubs. LUNGS: Clear to auscultation bilaterally without wheezes, rales or rhonchi. No retractions or accessory muscle use. ABDOMEN: Positive normal bowel sounds x 4. Soft, nontender, without masses or organomegaly. No guarding or rebound tenderness. No CVA tenderness. MUSCULOSKELETAL: No muscle atrophy, erythema, or edema noted. Full range of motion without joint tenderness in all extremities. Medical Decision & Procedures ER Provider Diagnostic Interpretation: ABDOMEN LIMITED (US) HISTORY: Pain Left side flank/abd pain. Hx stones. . COMPARISON: CT 12/15/2016 FINDINGS: Pancreas: The pancreas demonstrates a normal echotexture. Liver: Mild fatty infiltration Gallbladder: No gallbladder wall thickening. No gallstones. CBD: 4 mm Right kidney: No hydronephrosis. Left kidney: no evidence for hydronephrosis Spleen: Normal IMPRESSION: No significant abnormality identified within the within the right or left upper quadrant. Normal spleen. Normal kidneys. KUB CLINICAL HISTORY: Left flank pain pain COMPARISON STUDY: No previous studies for comparison. FINDINGS: The soft tissues, psoas shadows, renal outlines and intestinal gas pattern appear normal. There is no evidence for bowel obstruction. No abnormal abdominal calcifications are seen. IMPRESSION: Normal study. Laboratory Results 12/30/16 19:35 Red Blood Count 6.10, Mean Corpuscular Volume 85.6, Mean Corpuscular Hemoglobin 31.9, Mean Corpuscular Hemoglobin Concent 37.3, Mean Platelet Volume 11.3, Neutrophils (%) (Auto) 59.2, Lymphocytes (%) (Auto) 28.5, Monocytes (%) (Auto) 10.7, Eosinophils (%) (Auto) 0.9, Basophils (%) (Auto) 0.3, Neutrophils # (Auto ) 6.26, Lymphocytes # (Auto) 3.01, Monocytes # (Auto) 1.13, Eosinophils # (Auto ) 0.10, Basophils # (Auto) 0.03 12/30/16 19:35 Test 12/30/16 19:35 12/30/16 19:40 White Blood Count 10.57 K/uL (4.8-10.8) Red Blood Count 6.10 M/uL (4.7-6.1) Hemoglobin 18.8 g/dL (14.0-18.0) Hematocrit 52.4 % (42-52) Mean Corpuscular Volume 85.6 fL (80-100) Mean Corpuscular Hemoglobin 31.9 pg (25-34) Mean Corpuscular Hemoglobin Concent 37.3 g/dl (32-36) Platelet Count 190 K/uL (130-400) Mean Platelet Volume 11.3 fL (7.4-10.4) Neutrophils (%) (Auto) 59.2 % Lymphocytes (%) (Auto) 28.5 % Monocytes (%) (Auto) 10.7 % Eosinophils (%) (Auto) 0.9 % Basophils (%) (Auto) 0.3 % Neutrophils # (Auto) 6.26 K/uL (1.4-6.5) Lymphocytes # (Auto) 3.01 K/uL (1.2-3.4) Monocytes # (Auto) 1.13 K/uL (0.11-0.59) Eosinophils # (Auto) 0.10 K/uL (0-0.5) Basophils # (Auto) 0.03 K/uL (0-0.2) RDW Standard Deviation 40.4 fL (36.4-46.3) RDW Coefficient of Variation 12.8 % (11.5-14.5) Immature Granulocyte % (Auto) 0.4 % Immature Granulocyte # (Auto) 0.04 K/uL (0.00-0.02) Anion Gap 8.0 mmol/L (3-11) Est Creatinine Clear Calc Drug Dose 138.7 ml/min Estimated GFR () 108.3 Estimated GFR (Non- 93.5 BUN/Creatinine Ratio 15.6 (10-20) Calcium Level 8.8 mg/dl (8.5-10.1) Total Bilirubin 0.8 mg/dl (0.2-1) Aspartate Amino Transf (AST/SGOT) 48 U/L (15-37) Alanine Aminotransferase (ALT/SGPT) 83 U/L (12-78) Alkaline Phosphatase 63 U/L (45-117) Total Protein 7.2 gm/dl (6.4-8.2) Albumin 3.7 gm/dl (3.4-5.0) Globulin 3.5 gm/dl (2.5-4.0) Albumin/Globulin Ratio 1.1 (0.9-2) Lipase 132 U/L (73-393) Beta-Hydroxybutyric Acid 1.06 mg/dL (0.2-2.81) Chemistry Specimen Hemolysis Urine Color YELLOW Urine Appearance CLEAR (CLEAR) Urine pH 5.0 (4.5-7.5) Urine Specific [place] 1.039 (1.000-1.030) Urine Protein NEG (NEG) Urine Glucose (UA) 3+ (NEG) Urine Ketones NEG (NEG) Urine Occult Blood NEG (NEG) Urine Nitrite NEG (NEG) Urine Bilirubin NEG (NEG) Urine Urobilinogen NEG (NEG) Urine Leukocyte Esterase NEG (NEG) Urine Opiates Screen POS (NEG) Urine Methadone, Qualitative NEG (NEG) Urine Barbiturates NEG (NEG) Urine Phencyclidine (PCP) Level NEG (NEG) Ur Amphetamine/Methamphetamine NEG (NEG) MDMA (Ecstasy) Screen NEG (NEG) Urine Benzodiazepines Screen NEG (NEG) Urine Cocaine Metabolite NEG (NEG) Urine Marijuana (THC) NEG (NEG) Medications Administered Medications (Trade) Dose Ordered Sig/Kb Route Start Time Stop Time Status Last Admin Dose Admin Sodium Chloride 1,000 ml @ 999 mls/hr Q1H1M ONCE IV 12/30/16 19:30 12/30/16 20:30 DC 12/30/16 19:36 999 MLS/HR Ketorolac Tromethamine (Toradol Inj) 30 mg NOW STAT IV 12/30/16 19:24 12/30/16 19:27 DC 12/30/16 19:35 30 MG Ondansetron HCl (Zofran Inj) 4 mg NOW STAT IV 12/30/16 19:24 12/30/16 19:27 DC 12/30/16 19:35 4 MG Acetaminophen 100 ml @ 400 mls/hr NOW ONCE IV 12/30/16 19:30 12/30/16 19:44 DC 12/30/16 19:35 400 MLS/HR Ondansetron HCl (ZOFRAN ODT 4MG Home Pack) 1 homepa UD ONCE PO 12/30/16 21:45 12/30/16 21:46 DC 12/30/16 21:[address] [facility] ED Course Physical exam and history were performed. Nursing notes, EMR, and Medication list personally reviewed. Patient appears to have vague abdominal/flank pain on the left side of the past 2 days. Review of EMR shows the patient has been here recently with similar symptoms. He has had a CT scan in the past week that did not show significant findings other than a left-sided renal calculi but was not within the ureter. On examination the patient does not appear toxic. IV access was established and labs were obtained. The patient was hydrated and medicated as above. KUB and ultrasound were performed. The patient's blood work is as above and was reviewed. He does not have a significantly elevated white blood cell count. His hemoglobin is slightly elevated, which is felt to be from hemoconcentration and should improve with hydration. He does not have significant electrolyte imbalance, although his sugar is notably elevated at greater than 300. A KUB and ultrasound did not show evidence of acute findings. Urine is with glucose but without hematuria or infection. Case was discussed with my attending physician, Dr. Adler. I discussed the patient's evaluation with him at this time. Evidently he has had changes in his metformin to help with his glucose. He is not insulin-dependent, although I explained that this may be in the near future for him. The abdominal discomfort may have some relation to his metformin dosage, as this was just changed last week. The patient also could have a viral or foodborne illness. He appears well for discharge home and I will provide him a course of Zofran for symptomatic control. Of note his drug of abuse screen was positive for opioids, and he does not take these on a regular basis. I'm unsure the reason for this positive test. The patient will need close follow-up with his primary care physician. He was otherwise invited back to the ER with any new, worsening , or concerning symptoms. The chart was completed utilizing [employer] Voice Recognition Software. Grammatical errors, random word insertions, pronoun errors, and incomplete sentences are an occasional consequence of this system due to software limitations, ambient noise, and hardware issues. Any formal questions or concerns about the content, text, or information contained within the body of this dictation should be directly addressed to the provider for clarification. . Medical Decision Differential diagnosis: Etiologies such as appendicitis, diverticulitis, PUD, biliary pathology, UTI, pancreatitis, obstruction, mesenteric ischemia, aortic pathology, infections, inflammatory bowel disease, renal colic, as well as others were entertained. [place] Drug Monitoring Program Search Results: patient reviewed within database, no issues identified Medication Reconcilliation Current Medication List: was personally reviewed by me Blood Pressure Screening Blood pressure disposition: Elevated BP felt to be situational, Referred to PCP Impression Primary Impression: Left sided abdominal pain Additional Impressions: Hyperglycemia Nausea and vomiting Departure Information Dispostion Home / Self-Care Condition GOOD Prescriptions Ondasetron Odt (ZOFRAN ODT) 4 Mg Tab 4 MG SL Q6H for Nausea, #12 TAB Prov: Reed Padron PA-C 12/30/16 Forms HOME CARE DOCUMENTATION FORM, IMPORTANT VISIT INFORMATION Patient Instructions My [facility] Additional Instructions You were seen and evaluated today on an emergency basis only. This is not a substitute for, or an effort to provide, complete comprehensive medical care. It is not possible to recognize and treat all injuries or illnesses in a single emergency department visit. For this reason it is recommended that you followup with your primary care physician in the next week for recheck of your condition. For baseline pain relief you may alternate ibuprofen and acetaminophen every 4 hours for pain control. Take 600 mg ibuprofen (Advil) and then 4 hours later take 1000 mg acetaminophen (Tylenol). Do not take more than 3000 mg acetaminophen in a single day. Zofran 1 tablet every 6 hrs as needed for nausea. Drink plenty of water and remain well hydrated. Your sugar was elevated today. Continue your sugar medications and discuss this with your primary care physician. You are welcome to return to the emergency department anytime with new, worsening, or concerning symptoms. Problem Qualifiers
[2017-01-02 19:53] LABS: COD UR NEGATIVE NG/ML (CUTOFF=50); HYDROCOD UR 168 NG/ML (CUTOFF=50); HYDROMOR UR NEGATIVE NG/ML (CUTOFF=50); MORPHINE UR NEGATIVE NG/ML (CUTOFF=50); NORHYDROCODONE CONF UR 225 NG/ML (CUTOFF=50); OXYMORPH UR NEGATIVE NG/ML (CUTOFF=50)
== END 2016-12-30 22:00 | disposition home or self-care (01) ==
LOC: C.EDB 17:20 → C.EDA 22:00
DX: R10.9 Unspecified abdominal pain (principal); E11.65 Type 2 diabetes mellitus with hyperglycemia; R11.2 Nausea with vomiting, unspecified; Z87.442 Personal history of urinary calculi; Z82.49 Family history of ischemic heart disease and other diseases of the circulatory system; Z87.891 Personal history of nicotine dependence; Z79.899 Other long term (current) drug therapy

== ENCOUNTER 2017-03-26 19:56 | Emergency (ER) | payer OTHER ==
[~2017-03-26] VITALS: Ht 180.3 cm; Wt 128.5 kg
[~2017-03-26 19:56] MED LIST changes: +ASPI81TA28 PO; +CLR10 PO; -HYDR-5688 PO; -ONDA4TAB10 SL; -OXYC1TAB3 PO; -TRAM-10 PO
[2017-03-26 19:58] VITALS: TEMP 37.1; Ht 180.3 cm; Wt 128.5 kg
[2017-03-26] MEDS ORDERED: IBUP-1050 PO (20:23)
[2017-03-26] MEDS ORDERED: TRAM-10 PO (20:23)
--- NOTE | 2017-03-26 20:58 | DIAGNOSTIC IMAGING REPORT ---
R KNEE 3 VIEWS, R TIBIA/FIBULA 2 VIEWS ROUTINE, R ANKLE MIN 3 VIEWS ROUTINE CLINICAL HISTORY: Fall while hunting. Right knee, lower leg, and ankle pain. COMPARISON STUDY: None. FINDINGS: No fracture or dislocation within the right knee, right tibia, right fibula, right ankle. Soft tissues are unremarkable. No radiopaque foreign bodies. Tiny posterior calcaneal spur. IMPRESSION: No fractures within the right knee, right lower leg, or right ankle. Electronically signed by: Mic Parikh M.D. 03/26/2017 8:57 PM Dictated Date/Time: 03/26/2017 8:54 PM
[2017-03-26 21:13] VITALS: BP 143/84; PULSE 65; O2SAT 96
[2017-03-26] MEDS ORDERED: HYDR-5688 PO (21:21)
[2017-03-26] MEDS ORDERED: NORCO 5/325MG HOME PACK PO ONE (21:30)
--- NOTE | 2017-03-26 23:41 | EMERGENCY ROOM VISIT NOTE ---
ED Visit Note First contact with patient: 20:04 Chief Complaint: Right knee pain. History of Present Illness: Mr. Aldana is a 26-year-old white male who ambulates into the ED accompanied by female friend and his son complaining of right knee pain. Historically patient reports he's had a previous MCL and anterior cruciate ligament repair to the right knee. Patient reports he was out hunting yesterday. He reports he stepped on to a whole in the ground and twisted his right leg. He immediately had right knee pain over the posterior and lateral aspect of the knee and over the medial aspect of the ankle. Since that time his pain has been constant. Currently he describes his pain as a sharp and throbbing sensation. He rates his discomfort 10/10. His pain is nonradiating but when you touch the mid shaft tibia he reports a shooting pain down to his ankle. His pain worsens with palpation of the knee, tibia and ankle, weightbearing, flexion and extension of the knee and plantar flexion and dorsiflexion of the ankle. He reports she's been using ibuprofen and tramadol from a previous surgery without relief of his discomfort. He denies any associated symptoms including back pain , hip pain, leg/foot weakness/numbness/tingling. Review of Systems: As noted above in history of present illness. Past Medical History: Diabetes, hypertension, asthma, kidney stones, status post appendectomy, cholecystectomy, tonsillectomy and adenoidectomy. Current Medications: Albuterol, Glucophage, lisinopril/hydrochlorothiazide, Lopressor, Singulair, Lipitor, aspirin, Claritin, Ultram, ibuprofen. Allergies to Medications: Sulfa, Ceftin, penicillin, morphine Social History: Patient is not employed; he feels safe in his home environment; he admits to chewing tobacco; he denies alcohol use. Physical Examination: Vital Signs: Date Time Temp Pulse Resp B/P (MAP) Pulse Ox O2 Delivery O2 Flow Rate FiO2 03/26/17 21:13 65 18 143/84 96 Room Air 03/26/17 19:58 37.1 75 18 180/102 96 Room Air GENERAL: 26-year-old male in mild to moderate distress due to pain, nontoxic- appearing, afebrile and hemodynamically stable. NEUROLOGICAL: Awake, alert and oriented to person, place and time. Answering questions appropriately and following commands. Good hand eye coordination. No focal motor or sensory deficits. SKIN: Warm, dry and pink. No soft tissue trauma noted. BACK: No tenderness over the bony or acid and spine. No tenderness or spasm in the paraspinous musculature. RIGHT LOWER EXTREMITY: No gross bony deformity. No shortening or malrotation. No tenderness in the hip or thigh. Moderate tenderness over the anterior knee with mild prepatellar swelling, tenderness over the lateral aspect of the knee more in the area of the hamstring tendon insertion and mild tenderness over the joint line. Patient is not able to flex or extend his knee due to pain. I attempted to do ligamentous testing for laxity and was unsuccessful. There is additional tenderness in the mid shaft of the tibia. Tenderness over the anterior lateral aspect of the ankle without bony deformity, bony crepitus, swelling or ecchymosis. Distal pulses are intact. He was able to wiggle his toes. He was able to distinguish light sensations through all dermatomes of the foot. Capillary refill was brisk. ED Course: Patient is assessed as noted above. Patient's medication list was reviewed. Right Knee X-Rays: Was read by myself and the radiologist showing no acute fractures or dislocations. No joint effusion or soft tissue swelling. Right Tibia/Fibula X-Rays: Was read by myself and the radiologist showing no acute fractures or dislocations. Right Ankle X-Rays: Was read by myself and shows no acute fractures or dislocations or soft tissue swelling. Patient was given ice for pain and swelling. Patient's knee was placed in a knee immobilizer and he was educated on nonweight bearing crutches. Patient was educated about today's findings and instructed on his treatment plan ; he verbalizes understanding and agreement with this plan. Clinical Impression: Right knee, lower leg and ankle pain. Decision-Making: Initially my differential diagnosis I considered fracture, dislocation, ligamentous sprain, muscle sprain and other causes. Disposition: Patient discharged home in stable condition accompanied by his ; prior to departure he was reassessed and subjectively reported he was feeling better and rated his discomfort 4/10. Plan: Comfort measures were discussed with the patient including rest, ice, elevation , splint and sling use and a sliding pain scale of ibuprofen, acetaminophen and [place]. His name was checked in the state database and no red flags were noted. He is given appropriate narcotic precautions. Patient is encouraged to follow-up with his system configuration specialist for definitive care and treatment. Patient was encouraged return ED for worsening/uncontrolled pain, uncontrolled swelling, lower leg weakness/numbness/tingling or any new/concerning symptoms.
== END 2017-03-26 21:35 | disposition home or self-care (01) ==
LOC: C.EDB 19:56 → C.EDA 21:35
DX: M25.561 Pain in right knee (principal); X50.9XXA Other and unspecified overexertion or strenuous movements or postures, initial encounter; E11.9 Type 2 diabetes mellitus without complications; I10 Essential (primary) hypertension; Z79.82 Long term (current) use of aspirin; F17.200 Nicotine dependence, unspecified, uncomplicated

== ENCOUNTER 2017-09-07 15:07 | Emergency (ER) | payer OTHER ==
[~2017-09-07] VITALS: Ht 177.8 cm; Wt 124.3 kg
[~2017-09-07 15:07] MED LIST changes: +HYDR-5688 PO; +IBUP-1050 PO; +TRAM-10 PO
[2017-09-07 15:11] VITALS: TEMP 36.9; Ht 177.8 cm; Wt 124.3 kg
[2017-09-07] MEDS ORDERED: ONDANSETRON INJ 2 MG/ML 2 ML VIAL IV STA (15:31)
[2017-09-07] MEDS ORDERED: SODIUM CHLORIDE 0.9% 1000ML 1,000 ML IV STA (15:31)
[2017-09-07] MEDS ORDERED: MoRPHine SULFATE 10 MG/ML CARP/VIAL IV STA (15:42)
[2017-09-07] MEDS ORDERED: OPTIRAY 320 IV PRN (15:45)
--- NOTE | 2017-09-07 15:55 | EMERGENCY ROOM VISIT NOTE ---
ED Visit Note First contact with patient: 15:15 CHIEF COMPLAINT: Left lower quadrant pain, diarrhea, blood in stool HISTORY OF PRESENTING ILLNESS: This is a 26-year-old male who presents to the emergency department with complaint of left lower quadrant pain that started approximately 3 weeks ago and has been getting progressively worse. Patient states for the past week he has had associated diarrhea with the worsening pain and has noticed blood in his stool at times, he states initially it looked bright red, now it is more of a dark red. He has had associated nausea but no vomiting and he denies any fevers or chills. He states that he has had loose to watery stools, approximately 6 times a day. He denies any urinary symptoms. He does report a history of internal hemorrhoids found on colonoscopy last year after he had some blood in his stool at that time, he states these were mostly removed and he has been doing better. He denies any family history of inflammatory bowel disease or diverticulitis. He reports previous abdominal surgeries of appendectomy and cholecystectomy in the past. He denies any other symptoms of headaches, neck pain, chest pain, shortness of breath, dizziness or syncope, back pain, or unusual rash. REVIEW OF SYSTEMS: A complete 10 point review of systems was reviewed with the patient with pertinent positives and negatives as per history of present illness. All else were negative. PAST MEDICAL HISTORY: Reviewed in chart, see problem list below. SOCIAL HISTORY: Lives at home. He is a former smoker. He denies alcohol use. ALLERGIES: Reviewed in chart, see below. PHYSICAL EXAM: CONSTITUTIONAL: Pleasant and cooperative. No acute distress, but appears uncomfortable and in pain. Mildly dehydrated w, but otherwise Ell appearing and well nourished. HEENT: Normocephalic, atraumatic. Pupils equal, round and reactive to light, EOMI. TMs normal. Pharynx normal. Tacky mucous membranes. NECK: Supple, full active range of motion without discomfort. RESPIRATORY: Clear to auscultation bilaterally with no wheezing, crackles, rhonchi or stridor. Equal expansion bilaterally. CARDIOVASCULAR: Regular rate and rhythm with no murmurs, rubs or gallops. Normal peripheral perfusion. No edema. GASTROINTESTINAL: Diffusely tender to palpation the left lower quadrant with slight guarding. Abdomen is otherwise nontender. Soft, nondistended. No rebound tenderness. No palpable masses or HSM. Bowel sounds present in all quadrants. No CVA tenderness bilaterally. VALENTINA performed at bedside with nursing staff base cloth inspector. Normal rectal tone. No palpable masses, internal hemorrhoids, or fissures. Brown stool noted, guaiac negative. MUSCULOSKELETAL: Full range of motion of all joints without discomfort. INTEGUMENTARY: No rash or other significant dermatologic conditions noted. NEUROLOGIC: Alert and oriented X 4 with normal affect. Normal strength and sensation in all 4 extremities. No focal neurologic deficits noted. Normal speech. Normal gait observed. ED COURSE AND MEDICAL DECISION MAKING: CC: Patient presenting with complaint of left lower quadrant pain, diarrhea, blood in stool DIFFERENTIAL DIAGNOSIS: Includes, but not limited to gastroenteritis, food poisoning, infectious colitis, diverticulitis, inflammatory bowel disease, hemorrhoids, anal fissure, dehydration, electrolyte abnormality, among others. INTERPRETATION OF LABS: No leukocytosis, no anemia, hyperglycemia, no other significant electrolyte abnormalities, normal renal function, mildly elevated transaminases, otherwise normal liver enzymes and lipase. Beta hydroxybutyric acid within normal limits. UA shows 3+ glucose, but no ketonuria, no infection. IMAGING: ABD/PELVIS IV AND ORAL CONT CLINICAL HISTORY: 26 years-old Male presenting with eval diverticulitis, colitis, IBD, left lower quadrant pain, bloody stool. TECHNIQUE: Multidetector CT of the abdomen and pelvis was performed after the administration of oral and intravenous contrast. IV contrast: 93 mL of Optiray 320. A dose lowering technique was used consistent with the principles of ALARA (as low as reasonably achievable). COMPARISON: 03/02/2017. CT DOSE (mGy.cm): The estimated cumulative dose is 1264.10 mGy.cm. FINDINGS: Yarn Cleaner topogram: Cholecystectomy clips. Lung bases: Minimal basilar opacities, likely atelectasis. Calcified granuloma in the lingula. Normal heart size. No pericardial or pleural effusion. Liver: Normal morphology. Density suggestive of hepatic steatosis. No focal lesion. Patent hepatic vasculature. Biliary: No intrahepatic or extrahepatic biliary ductal dilatation. Gallbladder surgically absent. Pancreas: Normal. Spleen: Normal. Adrenal glands: Normal. Kidneys and ureters: Nonobstructing punctate calculus at the lower pole the left kidney. No additional calculus. Normal renal parenchyma. No perinephric fat infiltration. No hydronephrosis. Ureters normal. Bladder: Incompletely evaluated secondary to underdistention. Pelvic organs: Prostate and seminal vesicles normal. Bowel: Postsurgical changes of appendectomy. No bowel obstruction. Peritoneal cavity: No free fluid or intraperitoneal gas. Lymph nodes: No enlarged lymph nodes in the abdomen or pelvis. Vasculature: Aorta and IVC patent and normal in caliber. Abdominal wall: Normal. Musculoskeletal: Normal. IMPRESSION: 1. No acute intra-abdominal pathology. Specifically, no evidence of bowel inflammation. 2. Hepatic steatosis. Correlate with liver function tests to exclude steatohepatitis as a cause for abdominal pain. 3. Nonobstructing left renal calculus. MEDICATION RECONCILIATION: I attest that I have personally reviewed the patient 's current medication list. INITIAL VITAL SIGNS REVIEW: I reviewed the patient's initial vital signs and interpret them as follows: T: Afebrile; BP: Hypertensive; HR: Mildly tachycardic; RR: Within normal limits; Pulse Ox: Within normal limits on room air. Blood pressure screening: The patient was found to have an elevated blood pressure and was referred to their primary doctor for recheck and further treatment. SUMMARY: Patient was evaluated at bedside, history and physical exam performed. Patient is alert and oriented, in no acute distress but does appear uncomfortable and in pain, resting in the stretcher. Moderately tender in the left lower quadrant of the abdomen with slight guarding , no rebound tenderness. Patient is noted to be mildly tachycardic and appears mildly dehydrated. No fissures or internal hemorrhoids palpable on digital rectal exam. Stool is guaiac NEGATIVE. Orders were placed at bedside for labs, UA, stool studies, IV fluids for hydration, IV Zofran for nausea and IV Toradol for pain, CT abdomen/pelvis with IV and oral contrast to evaluate for diverticulitis, infectious colitis, and IBD. Patient discussed with Dr. Mckeon, who agrees with my assessment and plan. Nursing called stating the patient did not get relief with the Toradol, he is requesting Dilaudid. 0.5mg Dilaudid ordered. Labs and imaging reviewed as above. Patient is noted to be hyperglycemic, he does state that he drank a large Mountain Dew just prior to arriving to the ED. Serum ketones are negative, gap is closed, and no ketonuria to suggest DKA. He has been unable to provide a stool sample. He was provided with a stool collection kit and prescription for stool studies. No acute intra-abdominal pathology noted on CT scan. Given patient's report of intermittent blood in the stool and history of internal hemorrhoids, I recommended that he follow-up with his hotel associate for a repeat colonoscopy to evaluate further for this. Patient reassessed multiple times throughout ED stay, he has remained stable, and his pain is controlled, and he continues to tolerate oral fluids without difficulty. Patient was updated on all results and plan for discharge, he was encouraged to follow closely with his PCP. Patient was also given strict return precautions should his symptoms worsen, he verbalized understanding. Patient was discharged home in stable condition and ambulatory. Problem List Medical Problems: (1) Type 2 diabetes mellitus Status: Chronic Surgical Problems: (1) Hx of appendectomy Status: Resolved (2) Hx of cholecystectomy Status: Resolved Current/Historical Medications Scheduled Aspirin (Aspirin Ec), 81 MG PO DAILY Atorvastatin (Lipitor), 20 MG PO HS Lisinopril/Hctz (Zestoretic 20MG/12.5MG), 1 TAB PO DAILY Loratadine (Claritin), 10 MG PO DAILY Metformin Hcl (Glucophage), 1,000 MG PO BID Metoprolol Tartrate (Lopressor), 50 MG PO BID Scheduled PRN Albuterol Hfa (Ventolin Hfa), 2 PUFFS INH Q4H PRN for SOB/Wheezing Ibuprofen (Advil), 200 MG PO BID PRN for Pain or Fever Montelukast Sodium (Singulair), 10 MG PO HS PRN for Allergic Reaction Tramadol (Ultram), 50 MG PO DAILY PRN for Pain Allergies Coded Allergies: Cefuroxime (Verified Allergy, Severe, throat swells, 09/07/17) Morphine (Verified Allergy, Severe, "THROAT SWELLS", 09/07/17) Penicillins (Verified Allergy, Severe, throat swells, 09/07/17) Sulfa Antibiotics (Verified Allergy, Severe, throat swells, 09/07/17) Vital Signs Date Time Temp Pulse Resp B/P (MAP) Pulse Ox O2 Delivery O2 Flow Rate FiO2 09/07/17 20:21 71 18 144/71 97 Room Air 09/07/17 18:57 78 18 149/82 99 Room Air 09/07/17 17:32 64 16 140/77 96 Room Air 09/07/17 15:11 36.9 91 18 156/88 94 Room Air Laboratory Results 09/07/17 15:41 Red Blood Count 5.56, Mean Corpuscular Volume 84.7, Mean Corpuscular Hemoglobin 31.7, Mean Corpuscular Hemoglobin Concent 37.4, Mean Platelet Volume 11.1, Neutrophils (%) (Auto) 55.6, Lymphocytes (%) (Auto) 30.7, Monocytes (%) (Auto) 10.9, Eosinophils (%) (Auto) 2.0, Basophils (%) (Auto) 0.4, Neutrophils # (Auto ) 4.15, Lymphocytes # (Auto) 2.29, Monocytes # (Auto) 0.81, Eosinophils # (Auto ) 0.15, Basophils # (Auto) 0.03 09/07/17 15:41 Test 09/07/17 15:41 09/07/17 15:46 White Blood Count 7.46 K/uL (4.8-10.8) Red Blood Count 5.56 M/uL (4.7-6.1) Hemoglobin 17.6 g/dL (14.0-18.0) Hematocrit 47.1 % (42-52) Mean Corpuscular Volume 84.7 fL (80-100) Mean Corpuscular Hemoglobin 31.7 pg (25-34) Mean Corpuscular Hemoglobin Concent 37.4 g/dl (32-36) Platelet Count 120 K/uL (130-400) Mean Platelet Volume 11.1 fL (7.4-10.4) Neutrophils (%) (Auto) 55.6 % Lymphocytes (%) (Auto) 30.7 % Monocytes (%) (Auto) 10.9 % Eosinophils (%) (Auto) 2.0 % Basophils (%) (Auto) 0.4 % Neutrophils # (Auto) 4.15 K/uL (1.4-6.5) Lymphocytes # (Auto) 2.29 K/uL (1.2-3.4) Monocytes # (Auto) 0.81 K/uL (0.11-0.59) Eosinophils # (Auto) 0.15 K/uL (0-0.5) Basophils # (Auto) 0.03 K/uL (0-0.2) RDW Standard Deviation 39.6 fL (36.4-46.3) RDW Coefficient of Variation 12.9 % (11.5-14.5) Immature Granulocyte % (Auto) 0.4 % Immature Granulocyte # (Auto) 0.03 K/uL (0.00-0.02) Anion Gap 6.0 mmol/L (3-11) Est Creatinine Clear Calc Drug Dose 146.3 ml/min Estimated GFR () 117.3 Estimated GFR (Non- 101.2 BUN/Creatinine Ratio 10.8 (10-20) Calcium Level 8.9 mg/dl (8.5-10.1) Total Bilirubin 1.0 mg/dl (0.2-1) Direct Bilirubin 0.2 mg/dl (0-0.2) Aspartate Amino Transf (AST/SGOT) 44 U/L (15-37) Alanine Aminotransferase (ALT/SGPT) 85 U/L (12-78) Alkaline Phosphatase 62 U/L (45-117) Total Protein 7.3 gm/dl (6.4-8.2) Albumin 3.6 gm/dl (3.4-5.0) Lipase 147 U/L (73-393) Beta-Hydroxybutyric Acid 0.83 mg/dL (0.2-2.81) Urine Color YELLOW Urine Appearance CLEAR (CLEAR) Urine pH 5.0 (4.5-7.5) Urine Specific [place] 1.031 (1.000-1.030) Urine Protein NEG (NEG) Urine Glucose (UA) 3+ (NEG) Urine Ketones NEG (NEG) Urine Occult Blood NEG (NEG) Urine Nitrite NEG (NEG) Urine Bilirubin NEG (NEG) Urine Urobilinogen NEG (NEG) Urine Leukocyte Esterase NEG (NEG) Medications Administered Medications (Trade) Dose Ordered Sig/Kb Route Start Time Stop Time Status Last Admin Dose Admin Ondansetron HCl (Zofran Inj) 4 mg NOW STAT IV 09/07/17 15:31 09/07/17 15:34 DC 09/07/17 15:48 4 MG Sodium Chloride 1,000 ml @ 999 mls/hr Q1H1M STAT IV 09/07/17 15:31 09/07/17 16:31 DC 09/07/17 15:48 999 MLS/HR Ketorolac Tromethamine (Toradol Inj) 15 mg NOW STAT IV 09/07/17 16:06 09/07/17 16:07 DC 5/14/18 16:17 15 MG Hydromorphone HCl (Dilaudid Inj) 0.5 mg NOW STAT IV 09/07/17 17:02 09/07/17 17:03 DC 09/07/17 17:20 0.5 MG Departure Information Impression Primary Impression: Left lower quadrant pain Additional Impression: Diarrhea Dispostion Home / Self-Care Condition GOOD Referrals Byron Devlin D.O. (PCP) Patient Instructions ED Abdominal Pain Unkn Cause, ED Diet [place], ED Food Poison Or Gastroenteritis, [facility] Additional Instructions You have been treated in the Emergency Department for your abdominal pain and diarrhea. Laboratory results and imaging studies have ruled out any emergent causes for your symptoms which would warrant admission or surgery. You have been provided with a prescription for stool studies and a stool collection kit to use at home. You may take your stool sample to the outpatient lab or return to the hospital lab to have the studies done here. For pain control, you can use the following [id number] medicines (if >12 yo): - Regular strength (325mg/tab) Tylenol (acetaminophen) 2 tabs every 4-6 hours as needed. Do not exceed 10 tablets in a 24 hour period. Avoid taking more than 3000 mg of Tylenol per day. This includes any other sources of acetaminophen you may take on a regular basis. - Regular strength (200 mg/tab) Advil (ibuprofen) 3 tabs every 6-8 hours as needed. Do not exceed a dose of 2400 mg per day. Drink plenty of fluids to stay well hydrated. Please follow-up with your Primary Care Provider in the next few days for reevaluation. You should also follow-up with your hotel associate if you continue to have symptoms, especially if you continue to have blood in your stool. You may need to have another colonoscopy. Return to the emergency department for severe worsening abdominal or back pain, worsening nausea/vomiting, vomiting blood, large amounts of blood in your stool or urine, fevers > 101.5, severe dizziness or passing out, or any other concerns. Work Instructions Return To Work: 2 days Problem Qualifiers Additional Impression: Diarrhea Diarrhea type: unspecified type Qualified Codes: R19.7 - Diarrhea, unspecified
[2017-09-07 16:01] LABS: BASO % 0.4 %; BASO ABS # 0.03 K/uL (0-0.2); EOS ABS # 0.15 K/uL (0-0.5); HEMATOCRIT 47.1 % (42-52); HEMOGLOBIN 17.6 g/dL (14.0-18.0); IG# 0.03 K/uL (0.00-0.02); LYMPH % 30.7 %; LYMPH ABS # 2.29 K/uL (1.2-3.4); MEAN CELL VOLUME 84.7 fL (80-100); MEAN CORPUSCULAR HEMOGLOBIN 31.7 pg (25-34); MEAN CORPUSCULAR HGB CONC 37.4 g/dl (32-36); MEAN PLATELET VOLUME 11.1 fL (7.4-10.4); MONO % 10.9 %; MONO ABS # 0.81 K/uL (0.11-0.59); NEUT % 55.6 %; NEUT ABS # 4.15 K/uL (1.4-6.5); PLATELET COUNT 120 K/uL (130-400); RED CELL DISTRIBUTION WIDTH CV 12.9 % (11.5-14.5); RED CELL DISTRIBUTION WIDTH SD 39.6 fL (36.4-46.3); WHITE BLOOD COUNT 7.46 K/uL (4.8-10.8)
[2017-09-07] MEDS ORDERED: KETOROLAC TROMETHAMINE 30 MG/ML VIAL IV STA (16:06)
[2017-09-07 16:34] LABS: ALBUMIN 3.6 gm/dl (3.4-5.0); CALCIUM 8.9 mg/dl (8.5-10.1); CREATININE 1.03 mg/dl (0.60-1.40); POTASSIUM 3.7 mmol/L (3.5-5.1); TOTAL PROTEIN 7.3 gm/dl (6.4-8.2)
[2017-09-07] MEDS ORDERED: HYDROmorphone INJ 0.5 MG/0.5 ML SYR IV STA (17:02)
--- NOTE | 2017-09-07 19:03 | DIAGNOSTIC IMAGING REPORT ---
ABD/PELVIS IV AND ORAL CONT CLINICAL HISTORY: 26 years-old Male presenting with eval diverticulitis, colitis, IBD, left lower quadrant pain, bloody stool. TECHNIQUE: Multidetector CT of the abdomen and pelvis was performed after the administration of oral and intravenous contrast. IV contrast: 93 mL of Optiray 320. A dose lowering technique was used consistent with the principles of ALARA (as low as reasonably achievable). COMPARISON: 03/02/2017. CT DOSE (mGy.cm): The estimated cumulative dose is 1264.10 mGy.cm. FINDINGS: Piece Hand topogram: Cholecystectomy clips. Lung bases: Minimal basilar opacities, likely atelectasis. Calcified granuloma in the lingula. Normal heart size. No pericardial or pleural effusion. Liver: Normal morphology. Density suggestive of hepatic steatosis. No focal lesion. Patent hepatic vasculature. Biliary: No intrahepatic or extrahepatic biliary ductal dilatation. Gallbladder surgically absent. Pancreas: Normal. Spleen: Normal. Adrenal glands: Normal. Kidneys and ureters: Nonobstructing punctate calculus at the lower pole the left kidney. No additional calculus. Normal renal parenchyma. No perinephric fat infiltration. No hydronephrosis. Ureters normal. Bladder: Incompletely evaluated secondary to underdistention. Pelvic organs: Prostate and seminal vesicles normal. Bowel: Postsurgical changes of appendectomy. No bowel obstruction. Peritoneal cavity: No free fluid or intraperitoneal gas. Lymph nodes: No enlarged lymph nodes in the abdomen or pelvis. Vasculature: Aorta and IVC patent and normal in caliber. Abdominal wall: Normal. Musculoskeletal: Normal. IMPRESSION: 1. No acute intra-abdominal pathology. Specifically, no evidence of bowel inflammation. 2. Hepatic steatosis. Correlate with liver function tests to exclude steatohepatitis as a cause for abdominal pain. 3. Nonobstructing left renal calculus. Electronically signed by: Willi Suresh M.D. 09/07/2017 7:01 PM Dictated Date/Time: 09/07/2017 6:57 PM
[2017-09-07 20:21] VITALS: BP 144/71; PULSE 71; O2SAT 97
== END 2017-09-07 20:23 | disposition home or self-care (01) ==
LOC: C.EDB 15:08
DX: R10.32 Left lower quadrant pain (principal); R19.7 Diarrhea, unspecified; R03.0 Elevated blood-pressure reading, without diagnosis of hypertension; E11.9 Type 2 diabetes mellitus without complications; Z79.84 Long term (current) use of oral hypoglycemic drugs; Z87.19 Personal history of other diseases of the digestive system; Z87.891 Personal history of nicotine dependence; Z90.49 Acquired absence of other specified parts of digestive tract; Z88.0 Allergy status to penicillin; Z88.1 Allergy status to other antibiotic agents; Z88.2 Allergy status to sulfonamides; Z88.6 Allergy status to analgesic agent

== ENCOUNTER 2017-12-17 12:19 | Inpatient (IN) | payer OTHER ==
[~2017-12-17] VITALS: Ht 180.3 cm; Wt 119.9 kg
[~2017-12-17 12:19] MED LIST changes: -HYDR-5688 PO
[2017-12-17] MEDS ORDERED: ONDANSETRON INJ 2 MG/ML 2 ML VIAL IV STA (12:39)
[2017-12-17] MEDS ORDERED: SODIUM CHLORIDE 0.9% 1000ML 1,000 ML IV STA ×2 (12:39→14:52)
[2017-12-17] MEDS ORDERED: KETOROLAC TROMETHAMINE 30 MG/ML VIAL IV STA (12:39)
[2017-12-17 13:10] LABS: BASO % 0.2 %; BASO ABS # 0.04 K/uL (0-0.2); EOS % 1.8 %; EOS ABS # 0.31 K/uL (0-0.5); HEMATOCRIT 48.5 % (42-52); HEMOGLOBIN 17.4 g/dL (14.0-18.0); IG# 0.09 K/uL (0.00-0.02); LYMPH % 11.6 %; LYMPH ABS # 2.01 K/uL (1.2-3.4); MEAN CELL VOLUME 89.2 fL (80-100); MEAN CORPUSCULAR HGB CONC 35.9 g/dl (32-36); MEAN PLATELET VOLUME 11.6 fL (7.4-10.4); MONO % 7.1 %; MONO ABS # 1.22 K/uL (0.11-0.59); NEUT % 78.8 %; NEUT ABS # 13.59 K/uL (1.4-6.5); PLATELET COUNT 131 K/uL (130-400); RED CELL DISTRIBUTION WIDTH CV 13.5 % (11.5-14.5); RED CELL DISTRIBUTION WIDTH SD 44.1 fL (36.4-46.3); WHITE BLOOD COUNT 17.26 K/uL (4.8-10.8)
[2017-12-17 13:27] LABS: CALCIUM 8.9 mg/dl (8.5-10.1); CREATININE 0.75 mg/dl (0.60-1.40); POTASSIUM 3.5 mmol/L (3.5-5.1); TOTAL PROTEIN 7.7 gm/dl (6.4-8.2)
--- NOTE | 2017-12-17 13:33 | DIAGNOSTIC IMAGING REPORT ---
ABDOMEN 2VIEW W/PA CHEST RTN CLINICAL HISTORY: 27 years-old Male presenting with abdominal pain vomiting. TECHNIQUE: PA view of the chest and supine and upright views of the abdomen were obtained. COMPARISON: 10/16/2017. FINDINGS: Cardiomediastinal silhouette normal. Lungs and pleural spaces clear. Cholecystectomy clips noted. Possibly of small bowel gas, nonspecific. No gross evidence of bowel obstruction. No gross pneumoperitoneum. Postsurgical changes in the right lower quadrant noted. Allowing for bowel gas and stool, no calcifications to suggest nephrolithiasis. Osseous structures normal. IMPRESSION: 1. No acute cardiopulmonary disease. 2. Paucity of small bowel gas, nonspecific. No gross evidence of bowel obstruction or free air. Electronically signed by: Willi Suresh M.D. 12/17/2017 1:31 PM Dictated Date/Time: 12/17/2017 1:29 PM
[2017-12-17] MEDS ORDERED: OPTIRAY 320 IV PRN (13:45)
[2017-12-17] MEDS: HYDROmorphone INJ 1 MG/ML SYR IV PRN ×3 (13:45→16:35)
[2017-12-17] MEDS ORDERED: HYDROmorphone INJ 1 MG/ML SYR ONE (13:46)
--- NOTE | 2017-12-17 14:33 | DIAGNOSTIC IMAGING REPORT ---
ABDOMEN AND PELVIS CT WITH IV CONTRAST CT DOSE: 1449.19 mGy.cm HISTORY: Acute severe generalized abdominal pain abdominal pain TECHNIQUE: Multiaxial CT images of the abdomen and pelvis were performed following the use of intravenous contrast. A dose lowering technique was utilized adhering to the principles of ALARA. COMPARISON STUDY: CT abdomen and pelvis 10/16/2017. FINDINGS: Mild dependent subsegmental bibasilar atelectasis. Calcific granulomata about the left lung base. No pneumatosis or pneumoperitoneum. Imaged inferior cardiac chambers are unremarkable. Mildly prominent nonenlarged epicardial lymph nodes redemonstrated. Suggested fatty infiltration of the liver. No intrahepatic biliary ductal dilation. Patent portal vein. Focal area of narrowing about the superior mesenteric vein again seen on image 22 series 3. The spleen and adrenal glands are unremarkable. Upper abdominal varices are redemonstrated. There is moderate interstitial and peripancreatic inflammation centered about the pancreatic head and uncinate process. There is a focal area of ill-defined decreased density about the uncinate process, 3.4 x 2.4 cm on image 214 series 3 suggestive of pancreatic necrosis. No drainable fluid collections. Circumferential wall thickening about the duodenum is noted with surrounding inflammation, likely reactive. No bowel obstruction. Trace edema tracks about the right pericolic gutter. Kidneys, ureters and bladder are unremarkable. Minimal colonic diverticulosis without diverticulitis. Prior appendectomy. Aorta and IVC are unremarkable. There are no pathologically enlarged lymph nodes identified. Bones appear intact. IMPRESSION: 1. Moderate interstitial and peripancreatic inflammation centered about the pancreatic head and uncinate process is compatible with acute pancreatitis . Hypodense parenchyma centered about the uncinate process suggests developing parenchymal necrosis. 2. Wall thickening of the duodenum is likely reactive. 3. Focal luminal narrowing about the superior mesenteric vein redemonstrated along with upper abdominal varices. 4. Prior cholecystectomy and appendectomy. 5. Suggested fatty infiltration of the liver. Electronically signed by: Martinez Bass M.D. 12/17/2017 2:31 PM Dictated Date/Time: 12/17/2017 2:16 PM
[2017-12-17] MEDS ORDERED: HYDROmorphone INJ 1 MG/ML SYR IV PRN (14:45)
--- NOTE | 2017-12-17 15:16 | EMERGENCY ROOM VISIT NOTE ---
History Report prepared by Jonathan: Annalise Marie Under the Supervision of: Dr. Joey Marquez M.D. First contact with patient: 12:35 Chief Complaint: ABDOMINAL PAIN Stated Complaint: SEVERE ABD PAIN, UNABLE TO EAT/DRINK History of Present Illness The patient is a 27 year old male who presents to the Emergency Room with complaints of worsening abdominal pain starting 4 days ago. The patient states that the pain is so bad he is unable to get comfortable. He notes that lying down makes it worse and sitting up helps it slightly. He notes that deep breathing makes the pain worse, as well. He reports that the pain is so much that each time he tries to eat or drink he vomits. He notes that he has a history of cholecystectomy and appendectomy. He states that he saw his PCP and "she is concerned that they may have left a small piece of his gallbladder so she sent him here". The patient notes that he was here a few months ago for this pain and they wanted him to be admitted, but his didn't know her way around the hospital so he went home. The patient complains of loss of appetite and chills. The patient denies hematemesis, vomiting black material, fevers, loss of consciousness, recent trauma to the abdomen, chest pain, and shortness of breath. The patient notes that he is a former smoker and stopped 1.5 years ago. He note that he did smoke with his brother last night. He notes that he occasionally drinks. Source of History: patient Onset: 4 days ago Position: abdomen Timing: worsening Modifying Factors (Worsening): breathing (deep), other (lying down) Modifying Factors (Relieving): other (sitting up) Associated Symptoms: + chills, + vomiting, No LOC, No chest pain, No SOB Note: The patient complains of loss of appetite. The patient denies hematemesis, vomiting black material, and recent trauma to the abdomen. Review of Systems See HPI for pertinent positives and negatives. A total of ten systems were reviewed and were otherwise negative. Past Medical & Surgical Medical Problems: (1) Type 2 diabetes mellitus Surgical Problems: (1) Hx of appendectomy (2) Hx of cholecystectomy (3) S/P appendectomy (4) S/P cholecystectomy Family History Heart disease Social History Smoking Status: Current Some Day Smoker Alcohol Use: occasionally Drug Use: none Marital Status: Housing Status: lives with family Occupation Status: employed Current/Historical Medications Scheduled Aspirin (Aspirin Ec), 81 MG PO DAILY Atorvastatin (Lipitor), 20 MG PO HS Lisinopril/Hctz (Zestoretic 20MG/12.5MG), 1 TAB PO DAILY Loratadine (Claritin), 10 MG PO DAILY Metformin Hcl (Glucophage), 1,000 MG PO BID Metoprolol Tartrate (Lopressor), 50 MG PO BID Scheduled PRN Albuterol Hfa (Ventolin Hfa), 2 PUFFS INH Q4H PRN for SOB/Wheezing Ibuprofen (Advil), 200 MG PO BID PRN for Pain or Fever Montelukast Sodium (Singulair), 10 MG PO HS PRN for Allergic Reaction Tramadol (Ultram), 50 MG PO DAILY PRN for Pain Allergies Coded Allergies: Cefuroxime (Verified Allergy, Severe, throat swells, 12/17/17) Morphine (Verified Allergy, Severe, "THROAT SWELLS", 12/17/17) Penicillins (Verified Allergy, Severe, throat swells, 12/17/17) Sulfa Antibiotics (Verified Allergy, Severe, throat swells, 12/17/17) Physical Exam Vital Signs Date Time Temp Pulse Resp B/P (MAP) Pulse Ox O2 Delivery O2 Flow Rate FiO2 12/17/17 14:19 81 17 176/85 96 12/17/17 13:48 78 18 158/82 97 Room Air 12/17/17 12:32 37.0 100 20 159/109 98 Room Air Physical Exam Physical Exam GENERAL: He is oriented to person, place, and time. He appears well-developed and well-nourished. He does not appear distressed. HENT: Exam performed. Head: Normocephalic and atraumatic. Right Ear: External ear normal. No mastoid tenderness. Left Ear: External ear normal. No mastoid tenderness. Mouth/Throat: The oropharynx is clear and moist. No trismus in the jaw. No dental abscesses or uvula swelling. No oropharyngeal exudate or tonsillar abscesses. EYES: Conjunctivae and EOM are normal. Pupils are equal, round, and reactive to light. Right eye exhibits no discharge. Left eye exhibits no discharge. No scleral icterus. NECK: Normal range of motion. Neck supple. No JVD present. No spinous process tenderness present. No carotid bruit present. No rigidity. No tracheal deviation and normal range of motion present. No Brudzinski's sign and no Kernig 's sign noted. CV: Normal rate, regular rhythm, normal heart sounds and intact distal pulses. There is no peripheral edema. Palpable radial pulses bue. PULM/CHEST: Effort normal and breath sounds normal. No respiratory distress. No stridor. He has no wheezes. He has no rales. Chest Wall: He exhibits no tenderness. ABD: The abdomen is soft. Bowel sounds are normal. He has no distension. No mass is present. There is pain on palpation of right upper quadrant and epigastric region. There is no rebound, no guarding, no Marcus's sign and no tenderness at McBurney's point. Rovsig negative. MUSC/SKEL: Normal range of motion. There is no peripheral edema, tenderness or deformity. LYMPH: No cervical adenopathy. NEURO: He is alert and oriented to person, place, and time. He has normal strength. No cranial nerve deficit or sensory deficit. Coordination and gait normal. GCS eye subscore is 4. GCS verbal subscore is 5. GCS motor subscore is 6. Cerebellar tests wnl. SKIN: Skin is warm and dry. He is not diaphoretic. PSYCH: He has a normal mood and affect. Behavior is normal. Judgment and thought content normal. Medical Decision & Procedures ER Provider Diagnostic Interpretation: Radiology results as stated below per my review and radiologist interpretation: ABDOMEN 2VIEW W/PA CHEST RTN CLINICAL HISTORY: 27 years-old Male presenting with abdominal pain vomiting. TECHNIQUE: PA view of the chest and supine and upright views of the abdomen were obtained. COMPARISON: 10/16/2017. FINDINGS: Cardiomediastinal silhouette normal. Lungs and pleural spaces clear. Cholecystectomy clips noted. Possibly of small bowel gas, nonspecific. No gross evidence of bowel obstruction. No gross pneumoperitoneum. Postsurgical changes in the right lower quadrant noted. Allowing for bowel gas and stool, no calcifications to suggest nephrolithiasis. Osseous structures normal. IMPRESSION: 1. No acute cardiopulmonary disease. 2. Paucity of small bowel gas, nonspecific. No gross evidence of bowel obstruction or free air. Electronically signed by: Willi Suresh M.D. 12/17/2017 1:31 PM Dictated Date/Time: 12/17/2017 1:29 PM ABDOMEN AND PELVIS CT WITH IV CONTRAST CT DOSE: 1449.19 mGy.cm HISTORY: Acute severe generalized abdominal pain abdominal pain TECHNIQUE: Multiaxial CT images of the abdomen and pelvis were performed following the use of intravenous contrast. A dose lowering technique was utilized adhering to the principles of ALARA. COMPARISON STUDY: CT abdomen and pelvis 10/16/2017. FINDINGS: Mild dependent subsegmental bibasilar atelectasis. Calcific granulomata about the left lung base. No pneumatosis or pneumoperitoneum. Imaged inferior cardiac chambers are unremarkable. Mildly prominent nonenlarged epicardial lymph nodes redemonstrated. Suggested fatty infiltration of the liver. No intrahepatic biliary ductal dilation. Patent portal vein. Focal area of narrowing about the superior mesenteric vein again seen on image 22 series 3. The spleen and adrenal glands are unremarkable. Upper abdominal varices are redemonstrated. There is moderate interstitial and peripancreatic inflammation centered about the pancreatic head and uncinate process. There is a focal area of ill-defined decreased density about the uncinate process, 3.4 x 2.4 cm on image 214 series 3 suggestive of pancreatic necrosis. No drainable fluid collections. Circumferential wall thickening about the duodenum is noted with surrounding inflammation, likely reactive. No bowel obstruction. Trace edema tracks about the right pericolic gutter. Kidneys, ureters and bladder are unremarkable. Minimal colonic diverticulosis without diverticulitis. Prior appendectomy. Aorta and IVC are unremarkable. There are no pathologically enlarged lymph nodes identified. Bones appear intact. IMPRESSION: 1. Moderate interstitial and peripancreatic inflammation centered about the pancreatic head and uncinate process is compatible with acute pancreatitis . Hypodense parenchyma centered about the uncinate process suggests developing parenchymal necrosis. 2. Wall thickening of the duodenum is likely reactive. 3. Focal luminal narrowing about the superior mesenteric vein redemonstrated along with upper abdominal varices. 4. Prior cholecystectomy and appendectomy. 5. Suggested fatty infiltration of the liver. Electronically signed by: Martinez Bass M.D. 12/17/2017 2:31 PM Dictated Date/Time: 12/17/2017 2:16 PM Laboratory Results Test 12/17/17 12:50 RDW Standard Deviation 44.1 fL (36.4-46.3) RDW Coefficient of Variation 13.5 % (11.5-14.5) White Blood Count 17.26 K/uL (4.8-10.8) Red Blood Count 5.44 M/uL (4.7-6.1) Hemoglobin 17.4 g/dL (14.0-18.0) Hematocrit 48.5 % (42-52) Mean Corpuscular Volume 89.2 fL (80-100) Mean Corpuscular Hemoglobin 32.0 pg (25-34) Mean Corpuscular Hemoglobin Concent 35.9 g/dl (32-36) Platelet Count 131 K/uL (130-400) Mean Platelet Volume 11.6 fL (7.4-10.4) Neutrophils (%) (Auto) 78.8 % Lymphocytes (%) (Auto) 11.6 % Monocytes (%) (Auto) 7.1 % Eosinophils (%) (Auto) 1.8 % Basophils (%) (Auto) 0.2 % Neutrophils # (Auto) 13.59 K/uL (1.4-6.5) Lymphocytes # (Auto) 2.01 K/uL (1.2-3.4) Monocytes # (Auto) 1.22 K/uL (0.11-0.59) Eosinophils # (Auto) 0.31 K/uL (0-0.5) Basophils # (Auto) 0.04 K/uL (0-0.2) Immature Granulocyte % (Auto) 0.5 % Immature Granulocyte # (Auto) 0.09 K/uL (0.00-0.02) Prothrombin Time 10.4 SECONDS (9.0-12.0) Prothromb Time International Ratio 1.0 (0.9-1.1) Est Creatinine Clear Calc Drug Dose 198.3 ml/min Direct Bilirubin 0.3 mg/dl (0-0.2) Lipase 343 U/L (73-393) Laboratory results reviewed by me Medications Administered Medications (Trade) Dose Ordered Sig/Kb Route Start Time Stop Time Status Last Admin Dose Admin Sodium Chloride 1,000 ml @ 999 mls/hr Q1H1M STAT IV 12/17/17 12:39 12/17/17 13:39 DC 12/17/17 12:52 999 MLS/HR Ketorolac Tromethamine (Toradol Inj) 15 mg NOW STAT IV 12/17/17 12:39 12/17/17 12:41 DC 12/17/17 12:54 15 MG Ondansetron HCl (Zofran Inj) 4 mg NOW STAT IV 12/17/17 12:39 12/17/17 12:41 DC 12/17/17 12:52 4 MG Hydromorphone HCl (Dilaudid Inj) 1 mg ONE PRN IV 12/17/17 14:45 12/17/17 17:06 DC 12/17/17 16:35 1 MG Sodium Chloride 1,000 ml @ 999 mls/hr Q1H1M STAT IV 12/17/17 14:52 12/17/17 15:52 DC 12/17/17 14:56 999 MLS/HR Hydromorphone HCl (Dilaudid Wire Bender Hand) 25 mg PRN PRN IV 12/17/17 15:30 12/31/17 15:29 12/17/17 18:18 25 MG Sodium Chloride 1,000 ml @ 15 mls/hr Q24H IV 12/17/17 15:22 01/16/18 15:21 12/17/17 18:03 15 MLS/HR ED Course 1237: The patient was evaluated in room C1B. A complete history and physical exam was performed. 1239: Ordered Zofran Inj 4 mg IV, Toradol Inj 15mg IV, NSS 1000 ml @ 999 mls/hr IV. 1439: Vital signs stable. Labs show a leukocytosis of 17.26. Lipase within normal limits. CT of the abdomen showed pancreatitis as well as a hypodense parenchyma around the uncinate process suggesting a developing parenchymal necrosis. I spoke to CHRIS Felipe [facility] Hospitalist. She will contact [facility] and will come to evaluate the patient. I reevaluated the patient and updated him on his test results at this time. I discussed the treatment plan with him. He verbally agreed and understood. Dilaudid Inj 1mg IV pain. 1444: Case management determined that the patient's insurance will go to [facility] and [facility]. 1445: Ordered Dilaudid Inj 1 mg IV pain 1450: I discussed the patient's case with Dr. Alvin TAYLOR. He states that there is no need for transfer and that the patient can be admitted here. 1452: Ordered NSS 1000 ml @ 999 mls/hr IV. 1457: Discussed the patient's case with Dr. Kedem- [facility] Hospitalist. The patient will be evaluated for further treatment and disposition. Medical Decision 1237: The patient was evaluated in room C1B. A complete history and physical exam was performed. 1239: Ordered Zofran Inj 4 mg IV, Toradol Inj 15mg IV, NSS 1000 ml @ 999 mls/hr IV. 1439: Vital signs stable. Labs show a leukocytosis of 17.26. Lipase within normal limits. CT of the abdomen showed pancreatitis as well as a hypodense parenchyma around the uncinate process suggesting a developing parenchymal necrosis. I spoke to CHRIS Felipe. She will contact and will come to evaluate the patient. I reevaluated the patient and updated him on his test results at this time. I discussed the treatment plan with him. He verbally agreed and understood. Dilaudid Inj 1mg IV pain. 1444: Case management determined that the patient's insurance will go to [facility] and not [facility]. 1445: Ordered Dilaudid Inj 1 mg IV pain 1450: I discussed the patient's case with Dr. Alvin TAYLOR. He states that there is no need for transfer and that the patient can be admitted here. 1452: Ordered NSS 1000 ml @ 999 mls/hr IV. 1457: Discussed the patient's case with Dr. Samantha Gomez. The patient will be evaluated for further treatment and disposition. Medication Reconcilliation Current Medication List: was personally reviewed by me Blood Pressure Screening Patient's blood pressure: Elevated blood pressure Will be further monitored by the hospitalist. Consults Time Called: 1436 Consulting Physician: CHRIS Felipe Returned Call: 1439 I spoke to CHRIS Felipe. She will contact and will come to evaluate the patient. Additional Consults: Time Called: 1447 Consulted Physician: Dr. Alvin TAYLOR Returned Call: 1450 Additional Comments: I discussed the patient's case with Dr. Alvin TAYLOR. He states that there is no need for transfer and that the patient can be admitted here. Time Called: 1455 Consulted Physician: Dr. Samantha SOLIZ [facility] Returned Call: 1456 Additional Comments: Discussed the patient's case with Dr. Kedem- [facility] Hospitalist. The patient will be evaluated for further treatment and disposition. Impression Primary Impression: Pancreatitis Scribe Attestation The scribe's documentation has been prepared under my direction and personally reviewed by me in its entirety. I confirm that the note above accurately reflects all work, treatment, procedures, and medical decision making performed by me. The chart was completed utilizing [employer] Speech voice recognition software. Grammatical errors, random word insertions, pronoun errors, and incomplete sentences are an occasional consequence of this system due to software limitations, ambient noise, and hardware issues. Any formal questions or concerns about the content, text, or information contained within the body of this dictation should be directly addressed to the physician for clarification. Departure Information Dispostion Being Evaluated By Hospitalist Referrals Byron Devlin D.O. (PCP) Patient Instructions My [facility] Problem Qualifiers Primary Impression: Pancreatitis Chronicity: acute Pancreatitis type: unspecified pancreatitis type Acute pancreatitis complication: unspecified Qualified Codes: K85.90 - Acute pancreatitis without necrosis or infection, unspecified
[2017-12-17] MEDS ORDERED: SODIUM CHLORIDE 0.9% 1000ML 1,000 ML IV SCH (15:22)
[2017-12-17] MEDS ORDERED: IMIPENEM/CILASTATIN IV 500 MG in DEXTROSE 5% 100ML 100 ML IV SCH (15:30)
[2017-12-17] MEDS ORDERED: NALOXONE HCL 0.4 MG/1 ML VIAL/CARP IV PRN (15:30)
[2017-12-17] MEDS ORDERED: HydrALAZINE HCL 20 MG/ML VIAL IV. PRN (15:45)
[2017-12-17] MEDS ORDERED: HYDROmorphone INJ 1 MG/ML SYR IV STA (16:06)
[2017-12-17 16:30] VITALS: O2SAT 97; Ht 180.3 cm; Wt 119.9 kg
--- NOTE | 2017-12-17 16:46 | History and Physical ---
History & Physical Date & Time of Service: Dec 17, 2017 at 16:20 Chief Complaint: Severe Abd Pain, Unable To Eat/Drink Primary Care Physician: Byron Devlin D.O. History of Present Illness Source: patient, parent Mr. Aldana is a 27 y/o male with PMHx of HTN, HLD, T2DM, GERD, S/P Cholecystectomy, and S/P Appendectomy who presents to the ED c/o abdominal pain and inability to eat x 4 days. Patient reports he has had ongoing issues with severe intermittent abdominal pain with no known etiology at those times. He has undergone colonoscopies x 2 for irregular bowel movements and rectal bleeding. States only finding was hemorrhoids. He was last seen in the ED in September for the same pain. At that time, CT suggested possibly early pancreatitis but had normal WBC and normal Lipase. He ultimately returned home even though was offered admission. Patient states he has been doing well since but this pain is a chronic issue for him and was tolerable until now. He reports severe waxing and waning mid-abdominal pain that he reports feels exactly how he felt when he got his gallbladder out. Pain comes on with eating and reports associated nausea/vomiting. He had is gallbladder out in 2014. He was told of possible retention stones but has never been worked up. He denies ever being told he had pancreatitis in the past. He does have uncontrolled T2DM and HLD. He is unsure of his last lipid panel results but states his A1c is 9. He was started on Basaglar and currently taking 54 units and reporting efforts to lose weight with some intentional weight loss. He reports very rare ETOH intake. He complains of associated nausea, emesis, and chills. Last moved his bowels this AM and were his normal. Past Medical/Surgical History 1. HTN 2. HLD 3. T2DM 4. GERD 5. S/P Cholecystectomy 6. S/P Appendectomy 7. S/P Adenoidectomy/Tonsillectomy Family History Heart disease Social History Smoking Status: Current Some Day Smoker Alcohol Use: socially (rare ) Drug Use: none Marital Status: Housing status: lives with family Occupational Status: employed Allergies Coded Allergies: Cefuroxime (Verified Allergy, Severe, throat swells, 12/17/17) Morphine (Verified Allergy, Severe, "THROAT SWELLS", 12/17/17) Penicillins (Verified Allergy, Severe, throat swells, 12/17/17) Sulfa Antibiotics (Verified Allergy, Severe, throat swells, 12/17/17) Home Medications Scheduled Aspirin (Aspirin Ec), 81 MG PO DAILY Atorvastatin (Lipitor), 20 MG PO HS Lisinopril/Hctz (Zestoretic 20MG/12.5MG), 1 TAB PO DAILY Loratadine (Claritin), 10 MG PO DAILY Metformin Hcl (Glucophage), 1,000 MG PO BID Metoprolol Tartrate (Lopressor), 50 MG PO BID Scheduled PRN Albuterol Hfa (Ventolin Hfa), 2 PUFFS INH Q4H PRN for SOB/Wheezing Ibuprofen (Advil), 200 MG PO BID PRN for Pain or Fever Montelukast Sodium (Singulair), 10 MG PO HS PRN for Allergic Reaction Tramadol (Ultram), 50 MG PO DAILY PRN for Pain Review of Systems Constitutional: + chills, No fever ENT: No nasal symptoms, No sore throat Respiratory: No cough, No shortness of breath Cardiovascular: No chest pain Abdomen: + pain, + nausea, + vomiting, No diarrhea, No constipation, No GI bleeding Musculoskeletal: No swelling, No calf pain Genitourinary - Male: No dysuria Neurologic: No numbness/tingling Hematologic / Lymphatic: No abnormal bleeding/bruising Integumentary: No rash Physical Exam Vital Signs Date Time Temp Pulse Resp B/P (MAP) Pulse Ox O2 Delivery O2 Flow Rate FiO2 12/17/17 14:19 81 17 176/85 96 12/17/17 13:48 78 18 158/82 97 Room Air 12/17/17 12:32 37.0 100 20 159/109 98 Room Air General Appearance: WD/WN, no apparent distress Head: normocephalic, atraumatic Eyes: sclerae normal ENT: hearing grossly normal Neck: supple, no JVD, trachea midline Respiratory/Chest: lungs clear, normal breath sounds, no respiratory distress, no accessory muscle use Cardiovascular: regular rate, rhythm, no gallop, no murmur Abdomen/GI: normal bowel sounds, + tenderness (in RUQ and mid-epigastric; no guarding or rigidity to suggest acute abdomen), + distended Extremities/Musculoskelatal: no calf tenderness, no pedal edema Neurologic/Psych: alert, oriented x 3 Skin: normal color, warm/dry Diagnostics Laboratory Results Results Past 24 Hours Test 12/17/17 12:50 Range/Units White Blood Count 17.26 4.8-10.8 K/uL Red Blood Count 5.44 4.7-6.1 M/uL Hemoglobin 17.4 14.0-18.0 g/dL Hematocrit 48.5 42-52 % Mean Corpuscular Volume 89.2 80-100 fL Mean Corpuscular Hemoglobin 32.0 25-34 pg Mean Corpuscular Hemoglobin Concent 35.9 32-36 g/dl Platelet Count 131 130-400 K/uL Mean Platelet Volume 11.6 7.4-10.4 fL Neutrophils (%) (Auto) 78.8 % Lymphocytes (%) (Auto) 11.6 % Monocytes (%) (Auto) 7.1 % Eosinophils (%) (Auto) 1.8 % Basophils (%) (Auto) 0.2 % Neutrophils # (Auto) 13.59 1.4-6.5 K/uL Lymphocytes # (Auto) 2.01 1.2-3.4 K/uL Monocytes # (Auto) 1.22 0.11-0.59 K/uL Eosinophils # (Auto) 0.31 0-0.5 K/uL Basophils # (Auto) 0.04 0-0.2 K/uL RDW Standard Deviation 44.1 36.4-46.3 fL RDW Coefficient of Variation 13.5 11.5-14.5 % Immature Granulocyte % (Auto) 0.5 % Immature Granulocyte # (Auto) 0.09 0.00-0.02 K/uL Sodium Level 131 136-145 mmol/L Potassium Level 3.5 3.5-5.1 mmol/L Chloride Level 95 98-107 mmol/L Carbon Dioxide Level 25 21-32 mmol/L Anion Gap 11.0 3-11 mmol/L Blood Urea Nitrogen 16 7-18 mg/dl Creatinine 0.75 0.60-1.40 mg/dl Est Creatinine Clear Calc Drug Dose 198.3 ml/min Estimated GFR () 147.8 Estimated GFR (Non- 127.5 BUN/Creatinine Ratio 20.7 10-20 Random Glucose 244 70-99 mg/dl Calcium Level 8.9 8.5-10.1 mg/dl Total Bilirubin 1.4 0.2-1 mg/dl Direct Bilirubin 0.3 0-0.2 mg/dl Aspartate Amino Transf (AST/SGOT) 14 15-37 U/L Alanine Aminotransferase (ALT/SGPT) 37 12-78 U/L Alkaline Phosphatase 76 45-117 U/L Total Protein 7.7 6.4-8.2 gm/dl Albumin 3.0 3.4-5.0 gm/dl Lipase 343 73-393 U/L Diagnostic Radiology ABDOMEN AND PELVIS CT WITH IV CONTRAST FINDINGS: Mild dependent subsegmental bibasilar atelectasis. Calcific granulomata about the left lung base. No pneumatosis or pneumoperitoneum. Imaged inferior cardiac chambers are unremarkable. Mildly prominent nonenlarged epicardial lymph nodes redemonstrated. Suggested fatty infiltration of the liver. No intrahepatic biliary ductal dilation. Patent portal vein. Focal area of narrowing about the superior mesenteric vein again seen on image 22 series 3. The spleen and adrenal glands are unremarkable. Upper abdominal varices are redemonstrated. There is moderate interstitial and peripancreatic inflammation centered about the pancreatic head and uncinate process. There is a focal area of ill-defined decreased density about the uncinate process, 3.4 x 2.4 cm on image 214 series 3 suggestive of pancreatic necrosis. No drainable fluid collections. Circumferential wall thickening about the duodenum is noted with surrounding inflammation, likely reactive. No bowel obstruction. Trace edema tracks about the right pericolic gutter. Kidneys, ureters and bladder are unremarkable. Minimal colonic diverticulosis without diverticulitis. Prior appendectomy. Aorta and IVC are unremarkable. There are no pathologically enlarged lymph nodes identified. Bones appear intact. IMPRESSION: 1. Moderate interstitial and peripancreatic inflammation centered about the pancreatic head and uncinate process is compatible with acute pancreatitis . Hypodense parenchyma centered about the uncinate process suggests developing parenchymal necrosis. 2. Wall thickening of the duodenum is likely reactive. 3. Focal luminal narrowing about the superior mesenteric vein redemonstrated along with upper abdominal varices. 4. Prior cholecystectomy and appendectomy. 5. Suggested fatty infiltration of the liver. Impression Assessment and Plan Mr. Aldana is a 27 y/o male with PMHx of HTN, HLD, T2DM, GERD, S/P Cholecystectomy, and S/P Appendectomy who presents to the ED c/o abdominal pain and inability to eat x 4 days. Sepsis from Necrotic Pancreatitis with Normal Enzymes: - Possible pancreatitis in setting of uncontrolled DM/hyperlipidemia vs retention stone vs idiopathic - minimal ETOH use so not likely culprit - Admit to telemetry for cardiac monitoring given risk of severe decompensation in setting of pancreatitis - NPO except medications with aggressive fluid hydration with NSS at 250 mL/hr - Ciprofloxacin 400 mg IV BID and Flagyl 500 mg IV Q8H - Dilaudid HIGHWAY MAINTAINER; PRN anti-emetics - MRCP - Consult GI - appreciate assistance HTN: - Reports baseline systolic is 140 - likely increased in setting of uncontrolled pain - Metoprolol 50 mg BID and Hydralazine PRN; Hold HCTZ/Lisinopril HLD: - Hold Atorvastatin at this time T2DM, Uncontrolled: - Reports last A1c was 9 - Hold Metformin and Basaglar and cover with Lantus 20 units SC daily and SSI - will tighten control pending monitoring vs initiate insulin gtt if necessary Code Status: FULL RESUSCITATION Disposition: From home - await clinical improvement Resuscitation Status VTE Prophylaxis Will order VTE Prophylaxis: Yes Social Service Consult None Apply
[2017-12-17] MEDS ORDERED: GLUCAGON FOR INJ 1 MG VIAL IM PRN (17:15)
[2017-12-17] MEDS ORDERED: DEXTROSE 50% 50 ML SYR IV PRN (17:15)
[2017-12-17] MEDS ORDERED: CARBOHYDRATES FOR HYPOGLYCEMIA PO PRN (17:15)
[2017-12-17] MEDS ORDERED: GLUCOSE 40% GEL 15 GM TUBE PO PRN (17:15)
[2017-12-17] MEDS ORDERED: GLUCOSE 10 TABS/TUBE PO PRN (17:15)
--- NOTE | 2017-12-17 17:49 | DIAGNOSTIC IMAGING REPORT ---
MRCP CLINICAL HISTORY: 27 years-old Male presenting with Pancreatitis; Stone?, Intermittent right-sided abdominal pain for multiple weeks, worse last night and today, history of cholecystectomy and appendectomy. TECHNIQUE: Multisequence, multiplanar MR imaging of the abdomen was performed without the use of intravenous contrast. 3-D volumetric and/or maximum intensity projection (MIP) images were subsequently reconstructed for review. IV contrast: None. COMPARISON: CT from earlier today. FINDINGS: Localizer images: Unremarkable. Lung bases: Lungs and pleural spaces clear. Normal heart size. No pericardial or pleural effusion. Liver: Normal morphology. Biliary: No intrahepatic or extrahepatic biliary ductal dilatation. No choledocholithiasis. Gallbladder surgically absent. The cystic duct is nondilated. Pancreas: Pancreatic duct nondilated and normal in its anatomy. No evidence of pancreas divisum. Enlarged and edematous pancreatic head with significant surrounding inflammatory change. Trace peripancreatic fluid. No upstream pancreatic ductal dilatation. Ill-defined heterogeneously T2 hyperintense region in the onset measuring 3.5 cm in diameter likely representing an acute or chronic collection. Spleen: Mildly enlarged, measuring 13.7 cm in maximal sagittal dimension. Adrenal glands: Normal noncontrast appearance. Kidneys and ureters: Normal noncontrast appearance. No hydronephrosis. Normal ureters. Bowel: Mild circumferential wall thickening of the descending portion of the duodenum, likely secondarily reactive. Peritoneal cavity: No free fluid. Lymph nodes: No gross lymphadenopathy allowing for noncontrast technique. Vasculature: Stenosis of the superior mesenteric vein. Abdominal wall: Normal. Musculoskeletal: Normal. IMPRESSION: 1. Findings again consistent with acute pancreatitis, specifically necrotizing pancreatitis with an acute necrotic collection in the uncinate. Normal pancreatic duct anatomy. 2. No choledocholithiasis. A surgical changes of cholecystectomy. 3. Reactive changes of the descending duodenum. 4. Stenosis of the SMV better demonstrated on prior contrast enhanced CT. 5. Mild splenomegaly. Electronically signed by: Willi Suresh M.D. 12/17/2017 5:48 PM Dictated Date/Time: 12/17/2017 5:40 PM
[2017-12-17] MEDS: SODIUM CHLORIDE 0.9% 1000ML 1,000 ML IV SCH (18:03)
[2017-12-17 18:06] VITALS: BP 142/84; PULSE 74; TEMP 37.3; O2SAT 96
[2017-12-17] MEDS: HYDROmorphone HCL 0.5MG/ML 50 ML CASSETTE IV PRN (18:18)
[2017-12-17] MEDS ORDERED: NURSING VERBAL MED ORDER ONE (19:30)
[2017-12-17 19:32] VITALS: BP 137/84; PULSE 71; TEMP 37.2; O2SAT 95
[2017-12-17] MEDS: METRONIDAZOLE / NSS 500 MG in PREMIXED NSS 100 ML IV SCH (19:55)
[2017-12-17 20:21] LABS: BASO % 0.3 %; BASO ABS # 0.04 K/uL (0-0.2); EOS ABS # 0.41 K/uL (0-0.5); HEMATOCRIT 44.2 % (42-52); HEMOGLOBIN 15.8 g/dL (14.0-18.0); IG# 0.08 K/uL (0.00-0.02); LYMPH % 16.5 %; LYMPH ABS # 2.24 K/uL (1.2-3.4); MEAN CELL VOLUME 89.5 fL (80-100); MEAN CORPUSCULAR HGB CONC 35.7 g/dl (32-36); MEAN PLATELET VOLUME 11.1 fL (7.4-10.4); MONO % 8.5 %; MONO ABS # 1.15 K/uL (0.11-0.59); NEUT % 71.1 %; NEUT ABS # 9.67 K/uL (1.4-6.5); PLATELET COUNT 136 K/uL (130-400); RED CELL DISTRIBUTION WIDTH CV 13.5 % (11.5-14.5); RED CELL DISTRIBUTION WIDTH SD 44.3 fL (36.4-46.3); WHITE BLOOD COUNT 13.59 K/uL (4.8-10.8)
[2017-12-17] MEDS: ENOXAPARIN 40 MG/0.4 ML SYR SC SCH (20:25)
[2017-12-17 20:41] LABS: ALBUMIN 2.6 gm/dl (3.4-5.0); ALKALINE PHOSPHATASE 65 U/L (45-117); ALT/SGPT 31 U/L (12-78); AST/SGOT 17 U/L (15-37); BLOOD UREA NITROGEN 15 mg/dl (7-18); CALCIUM 8.4 mg/dl (8.5-10.1); CARBON DIOXIDE 28 mmol/L (21-32); CREATININE 0.64 mg/dl (0.60-1.40); GLUCOSE 168 mg/dl (70-99); POTASSIUM 3.2 mmol/L (3.5-5.1); SODIUM 135 mmol/L (136-145); TOTAL PROTEIN 6.8 gm/dl (6.4-8.2)
[2017-12-17] MEDS ORDERED: INSULIN ASPART 100 UNITS/ML 3 ML PEN SC SCH (21:00)
[2017-12-17] MEDS ORDERED: DiphenhydrAMINE HCL 50 MG/ML VIAL IV STA (21:03)
[2017-12-17] MEDS: CIPROFLOXACIN / D5W 400 MG in PREMIXED IN D5W 200 ML IV SCH (21:14)
[2017-12-17 21:18] VITALS: BP 145/83; PULSE 83
[2017-12-17] MEDS: METOPROLOL TARTRATE 50 MG TAB PO SCH (21:18)
[2017-12-17] MEDS: INSULIN GLARGINE SOLOSTAR 100 UNITS/ML 3 ML PEN SC SCH (21:22)
[2017-12-17 23:53] VITALS: BP 124/80; PULSE 77; TEMP 36.9; O2SAT 97
[2017-12-18] VITALS (7 sets, daily range): BP systolic 127–158; BP diastolic 71–82; PULSE 72–82; TEMP 36.7–37.1; O2SAT 91–96
[2017-12-18] MEDS: INSULIN ASPART 100 UNITS/ML 3 ML PEN SC SCH ×4 (00:17→18:00)
[2017-12-18] MEDS: METRONIDAZOLE / NSS 500 MG in PREMIXED NSS 100 ML IV SCH ×3 (03:00→18:38)
[2017-12-18 06:34] LABS: BASO % 0.5 %; BASO ABS # 0.05 K/uL (0-0.2); EOS % 3.6 %; EOS ABS # 0.37 K/uL (0-0.5); HEMATOCRIT 42.8 % (42-52); HEMOGLOBIN 14.8 g/dL (14.0-18.0); IG# 0.08 K/uL (0.00-0.02); LYMPH % 15.6 %; LYMPH ABS # 1.58 K/uL (1.2-3.4); MEAN CELL VOLUME 90.9 fL (80-100); MEAN CORPUSCULAR HEMOGLOBIN 31.4 pg (25-34); MEAN CORPUSCULAR HGB CONC 34.6 g/dl (32-36); MEAN PLATELET VOLUME 10.7 fL (7.4-10.4); MONO % 9.8 %; NEUT % 69.7 %; NEUT ABS # 7.08 K/uL (1.4-6.5); PLATELET COUNT 129 K/uL (130-400); RED CELL DISTRIBUTION WIDTH CV 13.7 % (11.5-14.5); RED CELL DISTRIBUTION WIDTH SD 45.7 fL (36.4-46.3); WHITE BLOOD COUNT 10.16 K/uL (4.8-10.8)
[2017-12-18 07:18] LABS: ALBUMIN 2.4 gm/dl (3.4-5.0); ALKALINE PHOSPHATASE 60 U/L (45-117); ALT/SGPT 32 U/L (12-78); AST/SGOT 24 U/L (15-37); BLOOD UREA NITROGEN 14 mg/dl (7-18); CALCIUM 8.3 mg/dl (8.5-10.1); CARBON DIOXIDE 28 mmol/L (21-32); CREATININE 0.63 mg/dl (0.60-1.40); GLUCOSE 174 mg/dl (70-99); LIPASE 271 U/L (73-393); POTASSIUM 3.3 mmol/L (3.5-5.1); SODIUM 136 mmol/L (136-145); TOTAL PROTEIN 6.3 gm/dl (6.4-8.2)
[2017-12-18] MEDS: METOPROLOL TARTRATE 50 MG TAB PO SCH ×2 (07:35→20:32)
[2017-12-18] MEDS: CIPROFLOXACIN / D5W 400 MG in PREMIXED IN D5W 200 ML IV SCH ×2 (07:45→20:31)
[2017-12-18] MEDS: HYDROmorphone HCL 0.5MG/ML 50 ML CASSETTE IV PRN ×3 (08:40→19:47)
[2017-12-18] MEDS ORDERED: KETOROLAC TROMETHAMINE 15 MG/ML VIAL IV STA (09:10)
[2017-12-18] MEDS: SODIUM CHLORIDE 0.9% 1000ML 1,000 ML IV SCH ×5 (09:40→20:42)
[2017-12-18] MEDS: POTASSIUM CHLR 10 MEQ / WTR 100 ML IV SCH ×2 (11:09→13:14)
--- NOTE | 2017-12-18 11:56 | Gastrointestinal Consultation ---
Gastrointestinal Consultation Date of Consultation: Dec 18, 2017 Attending Physician: Dr. Abrams Consulting Physician: Erica Willoughby PA-C Reason for Consultation: Pancreatitis History of Present Illness Patient is a 27 year old male with an unfortunate, poorly controlled list of medical comorbidities including type 2 diabetes, HTN, HLD, and GERD. He reports that over the past 6 months he has had ongoing symptoms of abdominal pain. He has been following with his primary care provider in effort to improve his other medical issues. He reports that he underwent 2 colonoscopy that were unremarkable with the exception of internal hemorrhoids. He does not know who performed these procedures. He was seen in the ER several months ago in September [address] indicated possible early pancreatitis. His lipase was unremarkable and he declined admission. He reports that for 1 week, his pain has progressively worsened. He reports severe epigastric pain worsened with any food or drink. He reports a history of cholecystectomy and appendectomy. He denies alcohol use. His mom says that he drinks maybe 5 times per year. He denies drug use. He reports that due to his uncontrolled diabetes, he was recently started on insulin. He is to see an director on air soon. He denies nausea or vomiting at present. His pain is a 8/10 at present. Since presentation to the ED, he had a CT scan that indicated pancreatitis. A subsequent MRCP indicated necrotizing pancreatitis with an acute, necrotic collection in the uncinate process. There were reactive duodenal changes noted as well. His Lipase was 343, and today is 271. His triglycerides were 728. His WBC count was 17.26 and improved overnight to 10.16. His K is 3.3 at present. He is currently on Cipro & Flagyl via IV. He has a significant limitation due to his severe penicillin & cephalosporin allergy. His imaging studies also indicated fatty liver findings. He is notably overweight. He denies family history of liver/pancreas issues. Past Medical/Surgical History Medical Problems: (1) Chest pain Status: Acute (2) Contusion of right index finger without damage to nail, initial encounter Status: Acute (3) Diarrhea Status: Acute (4) Encounter for tobacco use cessation counseling Status: Acute (5) Epigastric abdominal pain Status: Acute (6) GI bleed Status: Acute (7) Hand crush injury Status: Acute (8) Hyperglycemia Status: Acute (9) Hypomagnesemia Status: Acute (10) Knee pain Status: Acute (11) Left lower quadrant pain Status: Acute (12) Left lower quadrant pain Status: Acute (13) Left sided abdominal pain Status: Acute (14) LLQ abdominal pain Status: Acute (15) Nausea and vomiting Status: Acute (16) Nephrolithiasis Status: Acute (17) Pancreatitis Status: Acute (18) Pancreatitis Status: Acute Past Medical History: As above Past Surgical History: cholecystectomy, appendectomy, adenoidectomy, tonsillectomy Family History Heart disease Social History Smoking Status: Current Some Day Smoker Alcohol Use: occasionally Drug Use: none Marital Status: Housing Status: lives with family Occupation Status: employed Allergies Coded Allergies: Cefuroxime (Verified Allergy, Severe, throat swells, 12/17/17) Morphine (Verified Allergy, Severe, "THROAT SWELLS", 12/17/17) Penicillins (Verified Allergy, Severe, throat swells, 12/17/17) Sulfa Antibiotics (Verified Allergy, Severe, throat swells, 12/17/17) Current Medications Home Meds and Scripts Medications Dose Route/Sig Max Daily Dose Days Date Category Advil (Ibuprofen) 200 Mg Tab 200 Mg PO BID PRN 03/26/17 Reported Ultram (Tramadol HCl) 50 Mg Tab 50 Mg PO DAILY PRN 03/26/17 Reported Aspirin Ec (Aspirin) 81 Mg Tab 81 Mg PO DAILY 03/02/17 Reported Claritin (Loratadine) 10 Mg Tab 10 Mg PO DAILY 12/17/16 Reported Lipitor (Atorvastatin Calcium) 20 Mg Tab 20 Mg PO HS 10/02/16 Reported Singulair (Montelukast Sodium) 10 Mg Tab 10 Mg PO HS PRN 10/02/16 Reported Lopressor (Metoprolol Tartrate) 50 Mg Tab 50 Mg PO BID 10/02/16 Reported Zestoretic 20MG/12.5MG (HCTZ/Lisinopril) Tab 1 Tab PO DAILY 10/02/16 Reported Glucophage (Metformin Hcl) 1,000 Mg Tab 1,000 Mg PO BID 10/02/16 Reported Ventolin Hfa (Albuterol) 200 Puffs/[id number] Mcg Aers 2 Puffs INH Q4H PRN 10/02/16 Reported Review of Systems Constitutional: No fever, No chills Eyes: No problem reported ENT: No problem reported Respiratory: No cough, No shortness of breath Cardiac: + chest pain Abdomen: + pain, + nausea, No vomiting, No diarrhea, No constipation, No GI bleeding, No dysphagia Musculoskeletal: No joint pain Neuro: No problem reported Psych: No problem reported Heme: No abnormal bleeding/bruising Endo: No problem reported Skin: No problem reported Physical Exam Date Time Temp Pulse Resp B/P (MAP) Pulse Ox O2 Delivery O2 Flow Rate FiO2 12/18/17 08:00 Room Air 12/18/17 07:35 36.9 82 20 143/73 (96) 94 Room Air 12/18/17 04:04 37.1 81 18 128/77 (94) 91 Room Air 12/18/17 00:00 Room Air 12/17/17 23:53 36.9 77 18 124/80 (95) 97 Room Air 12/17/17 21:18 83 145/83 (103) 12/17/17 19:32 37.2 71 19 137/84 (101) 95 Room Air 12/17/17 19:15 Room Air 12/17/17 18:06 37.3 74 18 142/84 (103) 96 Room Air 12/17/17 16:48 78 18 165/85 96 12/17/17 16:30 97 Room Air 12/17/17 16:15 84 20 168/91 97 Room Air 12/17/17 14:19 81 17 176/85 96 12/17/17 13:48 78 18 158/82 97 Room Air 12/17/17 12:32 37.0 100 20 159/109 98 Room Air General Appearance: WD/WN, no apparent distress Eyes: normal inspection, PERRL ENT: hearing grossly normal Respiratory/Chest: lungs clear, normal breath sounds Cardiovascular: regular rate, rhythm Abdomen: normal bowel sounds, soft, + tenderness (epigastric, RUQ) Extremities: non-tender Neurologic/Psych: alert, oriented x 3 Skin: normal color Laboratory Results Last 24 Hours Test 12/17/17 12:50 12/17/17 19:18 12/17/17 19:56 12/17/17 19:59 White Blood Count 17.26 K/uL 13.59 K/uL Red Blood Count 5.44 M/uL 4.94 M/uL Hemoglobin 17.4 g/dL 15.8 g/dL Hematocrit 48.5 % 44.2 % Mean Corpuscular Volume 89.2 fL 89.5 fL Mean Corpuscular Hemoglobin 32.0 pg 32.0 pg Mean Corpuscular Hemoglobin Concent 35.9 g/dl 35.7 g/dl Platelet Count 131 K/uL 136 K/uL Mean Platelet Volume 11.6 fL 11.1 fL Neutrophils (%) (Auto) 78.8 % 71.1 % Lymphocytes (%) (Auto) 11.6 % 16.5 % Monocytes (%) (Auto) 7.1 % 8.5 % Eosinophils (%) (Auto) 1.8 % 3.0 % Basophils (%) (Auto) 0.2 % 0.3 % Neutrophils # (Auto) 13.59 K/uL 9.67 K/uL Lymphocytes # (Auto) 2.01 K/uL 2.24 K/uL Monocytes # (Auto) 1.22 K/uL 1.15 K/uL Eosinophils # (Auto) 0.31 K/uL 0.41 K/uL Basophils # (Auto) 0.04 K/uL 0.04 K/uL RDW Standard Deviation 44.1 fL 44.3 fL RDW Coefficient of Variation 13.5 % 13.5 % Immature Granulocyte % (Auto) 0.5 % 0.6 % Immature Granulocyte # (Auto) 0.09 K/uL 0.08 K/uL Prothrombin Time 10.4 SECONDS Prothromb Time International Ratio 1.0 Sodium Level 131 mmol/L 135 mmol/L Potassium Level 3.5 mmol/L 3.2 mmol/L Chloride Level 95 mmol/L 99 mmol/L Carbon Dioxide Level 25 mmol/L 28 mmol/L Anion Gap 11.0 mmol/L 8.0 mmol/L Blood Urea Nitrogen 16 mg/dl 15 mg/dl Creatinine 0.75 mg/dl 0.64 mg/dl Est Creatinine Clear Calc Drug Dose 198.3 ml/min 232.4 ml/min Estimated GFR () 147.8 > 150.0 Estimated GFR (Non- 127.5 136.1 BUN/Creatinine Ratio 20.7 23.6 Random Glucose 244 mg/dl 168 mg/dl Calcium Level 8.9 mg/dl 8.4 mg/dl Total Bilirubin 1.4 mg/dl 0.9 mg/dl Direct Bilirubin 0.3 mg/dl Aspartate Amino Transf (AST/SGOT) 14 U/L 17 U/L Alanine Aminotransferase (ALT/SGPT) 37 U/L 31 U/L Alkaline Phosphatase 76 U/L 65 U/L Total Protein 7.7 gm/dl 6.8 gm/dl Albumin 3.0 gm/dl 2.6 gm/dl Lipase 343 U/L Bedside Glucose 162 mg/dl Globulin 4.2 gm/dl Albumin/Globulin Ratio 0.6 Triglycerides Level 728 mg/dl Test 12/18/17 00:10 12/18/17 06:06 12/18/17 06:20 Bedside Glucose 165 mg/dl 162 mg/dl White Blood Count 10.16 K/uL Red Blood Count 4.71 M/uL Hemoglobin 14.8 g/dL Hematocrit 42.8 % Mean Corpuscular Volume 90.9 fL Mean Corpuscular Hemoglobin 31.4 pg Mean Corpuscular Hemoglobin Concent 34.6 g/dl Platelet Count 129 K/uL Mean Platelet Volume 10.7 fL Neutrophils (%) (Auto) 69.7 % Lymphocytes (%) (Auto) 15.6 % Monocytes (%) (Auto) 9.8 % Eosinophils (%) (Auto) 3.6 % Basophils (%) (Auto) 0.5 % Neutrophils # (Auto) 7.08 K/uL Lymphocytes # (Auto) 1.58 K/uL Monocytes # (Auto) 1.00 K/uL Eosinophils # (Auto) 0.37 K/uL Basophils # (Auto) 0.05 K/uL RDW Standard Deviation 45.7 fL RDW Coefficient of Variation 13.7 % Immature Granulocyte % (Auto) 0.8 % Immature Granulocyte # (Auto) 0.08 K/uL Sodium Level 136 mmol/L Potassium Level 3.3 mmol/L Chloride Level 99 mmol/L Carbon Dioxide Level 28 mmol/L Anion Gap 9.0 mmol/L Blood Urea Nitrogen 14 mg/dl Creatinine 0.63 mg/dl Est Creatinine Clear Calc Drug Dose 236.1 ml/min Estimated GFR () > 150.0 Estimated GFR (Non- 137.0 BUN/Creatinine Ratio 22.9 Random Glucose 174 mg/dl Calcium Level 8.3 mg/dl Magnesium Level 1.9 mg/dl Total Bilirubin 0.8 mg/dl Direct Bilirubin 0.2 mg/dl Aspartate Amino Transf (AST/SGOT) 24 U/L Alanine Aminotransferase (ALT/SGPT) 32 U/L Alkaline Phosphatase 60 U/L Total Protein 6.3 gm/dl Albumin 2.4 gm/dl Lipase 271 U/L Impression Patient is a 27 year old male with uncontrolled HLD, DM2, HTN, & morbid obesity who presents with abdominal pain that has been ongoing and CT/MRI findings of necrotizing pancreatitis. Plan 1) Keep NPO 2) Continue aggressive IV fluids at 250 cc/hr 3) IV Protonix 40 mg BID 4) Continue IV Cipro 200 mg q12 hr and IV Flagyl 500 mg q8 hr 5) Continue pain control per primary team (Patient presently has a Dilaudid POWERTRAIN DESIGN ENGINEER) 6) Continue to monitor for clinical improvement. He will need follow-up CT imaging (interval to be determined) and possible EUS for further evaluation 7) Supportive care and care for medical comorbidities per primary team 8) Discussed hepatic steatosis and role of weight loss as well as control of cholesterol/triglycerides, DM2, & HTN It does appear that with a normal lipase and late findings of necrotizing pancreatitis, this has likely been ongoing for more than 4 weeks. We will continue to monitor the patient and make further recommendations as the clinical course changes. Thank you for allowing us to participate in the care of this patient. If you should have any further questions or concerns, do not hesitate to contact us. Agree with NOE Mejia as above Abd: Soft, mild midepigastric tenderness, ND, +BS Continue supportive care Continue aggressive IVF to ensure perfusion pressures are maintained to prevent from ischemic injury to pancreatic parenchyma.
[2017-12-18] MEDS: ONDANSETRON INJ 2 MG/ML 2 ML VIAL IV PRN (12:04)
[2017-12-18] MEDS: PROCHLORPERAZINE INJ 5 MG in SYRINGE 4 ML IV PRN ×2 (13:56→18:37)
--- NOTE | 2017-12-18 14:23 | Hospitalist Progress Note ---
Hospitalist Progress Note Date of Service Dec 18, 2017. Subjective Pt evaluation today including: conversation w/ patient, conversation w/ family , physical exam, chart review, lab review, conversation w/ email production consultant (BRANDON Kaiser), review of inpatient medication list Patient seen and evaluated. Had a bad night with uncontrolled pain. ASSISTANT BRAND MANAGER parameters have been adjusted and improving. Remains NPO. Discussed some issues related to uncontrolled pain and that explained the adjustments we are making to better control this. Still with no appetite. Last BM was yesterday prior to coming into the hospital. Doesn't feel constipated. Still with abdominal pain. No more chills but states he just feels warm and requested fan. Constitutional: No fever, No chills Respiratory: No cough, No shortness of breath Cardiovascular: No chest pain Abdomen: + pain, + nausea, No vomiting, No diarrhea, No constipation Musculoskeletal: No swelling, No calf pain Male : No dysuria Heme: No abnormal bleeding/bruising Skin: No rash Medications Current Inpatient Medications Medications (Trade) Dose Ordered Sig/Kb Route Start Time Stop Time Status Last Admin Dose Admin Ioversol (Optiray 320) 111 ml UD PRN IV 12/17/17 13:45 12/21/17 13:44 Enoxaparin Sodium (Lovenox Inj) 40 mg Q24H SC 12/17/17 20:00 01/16/18 19:59 12/17/17 20:25 40 MG Ondansetron HCl (Zofran Inj) 4 mg Q6H PRN IV 12/17/17 15:30 01/16/18 15:29 12/18/17 12:04 4 MG Naloxone HCl (Narcan Inj) 0.1 mg Q5M PRN IV 12/17/17 15:30 01/16/18 15:29 Hydromorphone HCl (Dilaudid Flagman) 25 mg PRN PRN IV 12/17/17 15:30 12/31/17 15:29 12/18/17 10:22 25 MG Sodium Chloride 1,000 ml @ 15 mls/hr Q24H IV 12/17/17 15:22 01/16/18 15:21 12/17/17 18:03 15 MLS/HR Metoprolol Tartrate (Lopressor Tab) 50 mg BID PO 12/17/17 21:00 01/16/18 20:59 12/18/17 07:35 50 MG Hydralazine HCl (HydrALAZINE INJ) 10 mg Q6 PRN IV. 12/17/17 15:45 01/16/18 15:44 Insulin Glargine (Lantus Solostar Pen) 20 units QPM SC 12/17/17 21:00 01/16/18 20:59 12/17/17 21:22 20 UNITS Ciprofloxacin/ Dextrose 400 mg/ Prmx 200 ml @ 100 mls/hr Q12 IV 12/17/17 21:00 12/27/17 20:59 12/18/17 07:45 100 MLS/HR Metronidazole 500 mg/Prmx 100 ml @ 100 mls/hr Q8H IV 12/17/17 19:00 12/27/17 18:59 12/18/17 11:09 100 MLS/HR Glucose (Glucose 40% Gel) 15-30 GRAMS 15 GRAMS... UD PRN PO 12/17/17 17:15 01/16/18 17:14 Glucose (Glucose Chew Tab) 4-8 Tablets 4 Tabl... UD PRN PO 12/17/17 17:15 01/16/18 17:14 Dextrose (Dextrose 50% 50ML Syringe) 25-50ML 25ML FOR ... UD PRN IV 12/17/17 17:15 01/16/18 17:14 Glucagon (Glucagon Inj) 1 mg UD PRN IM 12/17/17 17:15 01/16/18 17:14 Carbohydrates (Carbohydrates For Hypoglycemia) 15-30 GRAMS 15 grams if BSG 54-69... UD PRN PO 12/17/17 17:15 01/16/18 17:14 Insulin Aspart (novoLOG ASPART) SLIDING SCALE G... Q6 SC 12/18/17 00:00 01/17/18 00:00 12/18/17 00:17 1 UNITS Sodium Chloride 1,000 ml @ 250 mls/hr Q4H IV 12/18/17 09:30 01/17/18 09:29 12/18/17 13:26 250 MLS/HR Pantoprazole Sodium 40 mg/ Syringe 10 ml @ 5 mls/min DAILY@ IV 12/18/17 21:00 9/23/18 20:59 Prochlorperazine Edisylate 5 mg/ Syringe 5 ml @ 5 mls/min Q4H PRN IV 12/18/17 13:30 01/17/18 13:29 12/18/17 13:56 5 MLS/MIN Objective Vital Signs Date Time Temp Pulse Resp B/P (MAP) Pulse Ox O2 Delivery O2 Flow Rate FiO2 12/18/17 11:17 37.0 72 20 127/74 (91) 96 Room Air 12/18/17 08:00 Room Air 12/18/17 07:35 36.9 82 20 143/73 (96) 94 Room Air 12/18/17 04:04 37.1 81 18 128/77 (94) 91 Room Air 12/18/17 00:00 Room Air 12/17/17 23:53 36.9 77 18 124/80 (95) 97 Room Air 12/17/17 21:18 83 145/83 (103) 12/17/17 19:32 37.2 71 19 137/84 (101) 95 Room Air 12/17/17 19:15 Room Air 12/17/17 18:06 37.3 74 18 142/84 (103) 96 Room Air 12/17/17 16:48 78 18 165/85 96 12/17/17 16:30 97 Room Air 12/17/17 16:15 84 20 168/91 97 Room Air 12/17/17 14:19 81 17 176/85 96 Physical Exam General Appearance: WD/WN, + mild distress (intermittent due to pain) Eyes: sclerae normal ENT: hearing grossly normal Neck: supple, no JVD, trachea midline Respiratory/Chest: lungs clear, normal breath sounds, no respiratory distress, no accessory muscle use Cardiovascular: regular rate, rhythm, no gallop, no murmur Abdomen: normal bowel sounds, + tenderness (in mid-epigastric region; no guarding or rigidity) Extremities: no pedal edema Neurologic/Psychiatric: alert, oriented x 3 Skin: normal color, warm/dry Laboratory Results Last 24 Hours Test 12/17/17 19:18 12/17/17 19:56 12/17/17 19:59 12/18/17 00:10 Bedside Glucose 162 mg/dl 165 mg/dl Sodium Level 135 mmol/L Potassium Level 3.2 mmol/L Chloride Level 99 mmol/L Carbon Dioxide Level 28 mmol/L Anion Gap 8.0 mmol/L Blood Urea Nitrogen 15 mg/dl Creatinine 0.64 mg/dl Est Creatinine Clear Calc Drug Dose 232.4 ml/min Estimated GFR () > 150.0 Estimated GFR (Non- 136.1 BUN/Creatinine Ratio 23.6 Random Glucose 168 mg/dl Calcium Level 8.4 mg/dl Total Bilirubin 0.9 mg/dl Aspartate Amino Transf (AST/SGOT) 17 U/L Alanine Aminotransferase (ALT/SGPT) 31 U/L Alkaline Phosphatase 65 U/L Total Protein 6.8 gm/dl Albumin 2.6 gm/dl Globulin 4.2 gm/dl Albumin/Globulin Ratio 0.6 Triglycerides Level 728 mg/dl White Blood Count 13.59 K/uL Red Blood Count 4.94 M/uL Hemoglobin 15.8 g/dL Hematocrit 44.2 % Mean Corpuscular Volume 89.5 fL Mean Corpuscular Hemoglobin 32.0 pg Mean Corpuscular Hemoglobin Concent 35.7 g/dl Platelet Count 136 K/uL Mean Platelet Volume 11.1 fL Neutrophils (%) (Auto) 71.1 % Lymphocytes (%) (Auto) 16.5 % Monocytes (%) (Auto) 8.5 % Eosinophils (%) (Auto) 3.0 % Basophils (%) (Auto) 0.3 % Neutrophils # (Auto) 9.67 K/uL Lymphocytes # (Auto) 2.24 K/uL Monocytes # (Auto) 1.15 K/uL Eosinophils # (Auto) 0.41 K/uL Basophils # (Auto) 0.04 K/uL RDW Standard Deviation 44.3 fL RDW Coefficient of Variation 13.5 % Immature Granulocyte % (Auto) 0.6 % Immature Granulocyte # (Auto) 0.08 K/uL Test 12/18/17 06:06 12/18/17 06:20 12/18/17 12:13 Bedside Glucose 162 mg/dl 160 mg/dl White Blood Count 10.16 K/uL Red Blood Count 4.71 M/uL Hemoglobin 14.8 g/dL Hematocrit 42.8 % Mean Corpuscular Volume 90.9 fL Mean Corpuscular Hemoglobin 31.4 pg Mean Corpuscular Hemoglobin Concent 34.6 g/dl Platelet Count 129 K/uL Mean Platelet Volume 10.7 fL Neutrophils (%) (Auto) 69.7 % Lymphocytes (%) (Auto) 15.6 % Monocytes (%) (Auto) 9.8 % Eosinophils (%) (Auto) 3.6 % Basophils (%) (Auto) 0.5 % Neutrophils # (Auto) 7.08 K/uL Lymphocytes # (Auto) 1.58 K/uL Monocytes # (Auto) 1.00 K/uL Eosinophils # (Auto) 0.37 K/uL Basophils # (Auto) 0.05 K/uL RDW Standard Deviation 45.7 fL RDW Coefficient of Variation 13.7 % Immature Granulocyte % (Auto) 0.8 % Immature Granulocyte # (Auto) 0.08 K/uL Sodium Level 136 mmol/L Potassium Level 3.3 mmol/L Chloride Level 99 mmol/L Carbon Dioxide Level 28 mmol/L Anion Gap 9.0 mmol/L Blood Urea Nitrogen 14 mg/dl Creatinine 0.63 mg/dl Est Creatinine Clear Calc Drug Dose 236.1 ml/min Estimated GFR () > 150.0 Estimated GFR (Non- 137.0 BUN/Creatinine Ratio 22.9 Random Glucose 174 mg/dl Calcium Level 8.3 mg/dl Magnesium Level 1.9 mg/dl Total Bilirubin 0.8 mg/dl Direct Bilirubin 0.2 mg/dl Aspartate Amino Transf (AST/SGOT) 24 U/L Alanine Aminotransferase (ALT/SGPT) 32 U/L Alkaline Phosphatase 60 U/L Total Protein 6.3 gm/dl Albumin 2.4 gm/dl Lipase 271 U/L Assessment and Plan Mr. Aldana is a 27 y/o male with PMHx of HTN, HLD, T2DM, GERD, S/P Cholecystectomy, and S/P Appendectomy who presents to the ED c/o abdominal pain and inability to eat x 4 days. Sepsis from Necrotic Pancreatitis with Normal Enzymes: - Possible pancreatitis in setting of uncontrolled DM/hyperlipidemia/obesity - Admit to telemetry for cardiac monitoring given risk of severe decompensation in setting of pancreatitis - NPO except medications with aggressive fluid hydration with NSS at 250 mL/hr - Ciprofloxacin 400 mg IV BID and Flagyl 500 mg IV Q8H - Dilaudid ASSISTANT BRAND MANAGER; PRN anti-emetics - MRCP - negative for stone obstruction - Consult GI - discussed with CRYS Mejia-C - plan as above with need of F /U imaging and possible EUS in near future HTN: - Metoprolol 50 mg BID and Hydralazine PRN; Hold HCTZ/Lisinopril HLD: - Hold Atorvastatin at this time T2DM, Uncontrolled: - Reports last A1c was 9 - Hold Metformin and Basaglar and cover with Lantus 20 units SC daily and SSI - currently with good control Code Status: FULL RESUSCITATION Disposition: From home - await clinical improvement Continued [facility] stay due to: multiple IV medications needed Discharge planning: home
[2017-12-18] MEDS ORDERED: ONDANSETRON INJ 2 MG/ML 2 ML VIAL IV STA (16:45)
[2017-12-18] MEDS ORDERED: KETOROLAC TROMETHAMINE 15 MG/ML VIAL IV PRN (18:30)
[2017-12-18] MEDS: PANTOprazole INJ 40 MG in SYRINGE 0 ML IV SCH (20:30)
[2017-12-18] MEDS: ENOXAPARIN 40 MG/0.4 ML SYR SC SCH (20:32)
[2017-12-18] MEDS: INSULIN GLARGINE SOLOSTAR 100 UNITS/ML 3 ML PEN SC SCH (20:41)
[2017-12-19] VITALS (8 sets, daily range): BP systolic 130–156; BP diastolic 72–83; PULSE 62–86; TEMP 36.8–37.2; O2SAT 90–98
[2017-12-19] MEDS: INSULIN ASPART 100 UNITS/ML 3 ML PEN SC SCH ×5 (00:22→20:49)
[2017-12-19] MEDS: PROCHLORPERAZINE INJ 5 MG in SYRINGE 4 ML IV PRN ×3 (00:36→20:01)
[2017-12-19] MEDS: SODIUM CHLORIDE 0.9% 1000ML 1,000 ML IV SCH ×5 (02:52→20:39)
[2017-12-19] MEDS: METRONIDAZOLE / NSS 500 MG in PREMIXED NSS 100 ML IV SCH ×3 (03:27→19:07)
[2017-12-19] MEDS: ONDANSETRON INJ 2 MG/ML 2 ML VIAL IV PRN ×2 (04:36→15:55)
[2017-12-19] MEDS: METOPROLOL TARTRATE 50 MG TAB PO SCH ×2 (08:20→20:48)
[2017-12-19 09:30] LABS: BLOOD UREA NITROGEN 11 mg/dl (7-18); CALCIUM 7.5 mg/dl (8.5-10.1); CARBON DIOXIDE 27 mmol/L (21-32); CREATININE 0.61 mg/dl (0.60-1.40); GLUCOSE 149 mg/dl (70-99); LIPASE 209 U/L (73-393); POTASSIUM 3.5 mmol/L (3.5-5.1); SODIUM 138 mmol/L (136-145)
[2017-12-19] MEDS: CIPROFLOXACIN / D5W 400 MG in PREMIXED IN D5W 200 ML IV SCH ×2 (09:39→20:41)
[2017-12-19] MEDS: PANTOprazole INJ 40 MG in SYRINGE 0 ML IV SCH ×2 (09:39→20:41)
[2017-12-19] MEDS: HYDROmorphone HCL 0.5MG/ML 50 ML CASSETTE IV PRN (10:51)
--- NOTE | 2017-12-19 14:12 | Hospitalist Progress Note ---
Hospitalist Progress Note Date of Service Dec 19, 2017. Subjective Pt evaluation today including: conversation w/ patient, physical exam, chart review, lab review, review of studies, review of inpatient medication list Patient seen and evaluated. No acute events overnight. Pain is better controlled and seems to be less diffuse. Reporting a small return in his appetite and would like to try a clear liquid diet. Review of EVENTS INTERN flow sheet it would appear his pain is well controlled and he agrees. Urinating more frequently now. Constitutional: No fever, No chills Respiratory: No cough, No shortness of breath Cardiovascular: No chest pain Abdomen: + pain (improving), + nausea (rare), No vomiting, No diarrhea, No constipation Musculoskeletal: No swelling, No calf pain Male : No dysuria Neurologic: No numbness/tingling Heme: No abnormal bleeding/bruising Medications Current Inpatient Medications Medications (Trade) Dose Ordered Sig/Kb Route Start Time Stop Time Status Last Admin Dose Admin Ioversol (Optiray 320) 111 ml UD PRN IV 12/17/17 13:45 12/21/17 13:44 Enoxaparin Sodium (Lovenox Inj) 40 mg Q24H SC 12/17/17 20:00 01/16/18 19:59 12/18/17 20:32 40 MG Ondansetron HCl (Zofran Inj) 4 mg Q6H PRN IV 12/17/17 15:30 01/16/18 15:29 12/19/17 04:36 4 MG Naloxone HCl (Narcan Inj) 0.1 mg Q5M PRN IV 12/17/17 15:30 01/16/18 15:29 Hydromorphone HCl (Dilaudid [employer]) 25 mg PRN PRN IV 12/17/17 15:30 12/31/17 15:29 12/19/17 10:51 25 MG Sodium Chloride 1,000 ml @ 15 mls/hr Q24H IV 12/17/17 15:22 01/16/18 15:21 12/17/17 18:03 15 MLS/HR Metoprolol Tartrate (Lopressor Tab) 50 mg BID PO 12/17/17 21:00 01/16/18 20:59 12/19/17 08:20 50 MG Hydralazine HCl (HydrALAZINE INJ) 10 mg Q6 PRN IV. 12/17/17 15:45 01/16/18 15:44 Insulin Glargine (Lantus Solostar Pen) 20 units QPM SC 12/17/17 21:00 01/16/18 20:59 12/18/17 20:41 20 UNITS Ciprofloxacin/ Dextrose 400 mg/ Prmx 200 ml @ 100 mls/hr Q12 IV 12/17/17 21:00 12/27/17 20:59 12/19/17 09:39 100 MLS/HR Metronidazole 500 mg/Prmx 100 ml @ 100 mls/hr Q8H IV 12/17/17 19:00 12/27/17 18:59 12/19/17 11:42 100 MLS/HR Glucose (Glucose 40% Gel) 15-30 GRAMS 15 GRAMS... UD PRN PO 12/17/17 17:15 01/16/18 17:14 Glucose (Glucose Chew Tab) 4-8 Tablets 4 Tabl... UD PRN PO 12/17/17 17:15 01/16/18 17:14 Dextrose (Dextrose 50% 50ML Syringe) 25-50ML 25ML FOR ... UD PRN IV 12/17/17 17:15 01/16/18 17:14 Glucagon (Glucagon Inj) 1 mg UD PRN IM 12/17/17 17:15 01/16/18 17:14 Carbohydrates (Carbohydrates For Hypoglycemia) 15-30 GRAMS 15 grams if BSG 54-69... UD PRN PO 12/17/17 17:15 01/16/18 17:14 Insulin Aspart (novoLOG ASPART) SLIDING SCALE G... Q6 SC 12/18/17 00:00 01/17/18 00:00 12/19/17 12:31 1 UNITS Sodium Chloride 1,000 ml @ 100 mls/hr Q10H IV 12/18/17 09:30 01/17/18 09:29 12/19/17 10:26 250 MLS/HR Pantoprazole Sodium 40 mg/ Syringe 10 ml @ 5 mls/min DAILY@ IV 12/18/17 21:00 01/17/18 20:59 12/19/17 09:39 5 MLS/MIN Prochlorperazine Edisylate 5 mg/ Syringe 5 ml @ 5 mls/min Q4H PRN IV 12/18/17 13:30 01/17/18 13:29 12/19/17 06:44 5 MLS/MIN Ketorolac Tromethamine (Toradol Inj) 15 mg Q6H PRN IV 12/18/17 18:30 12/23/17 18:29 Objective Vital Signs Date Time Temp Pulse Resp B/P (MAP) Pulse Ox O2 Delivery O2 Flow Rate FiO2 12/19/17 11:42 37.1 68 16 130/72 (91) 98 Room Air 12/19/17 08:30 90 Room Air 12/19/17 07:21 37.2 77 16 149/75 (99) 90 Room Air 12/19/17 04:21 37.1 75 19 135/77 (96) 91 Room Air 12/19/17 00:01 37.2 86 20 156/76 (102) 91 Room Air 12/19/17 00:00 Room Air 12/18/17 19:59 37.1 81 19 158/82 (107) 91 Room Air 12/18/17 16:09 96 Room Air 12/18/17 15:36 37.0 72 20 96 12/18/17 15:10 36.7 73 18 147/71 (96) 95 Room Air Physical Exam General Appearance: WD/WN, no apparent distress Eyes: sclerae normal ENT: hearing grossly normal Neck: supple, no JVD, no carotid bruits Respiratory/Chest: lungs clear, normal breath sounds, no respiratory distress, no accessory muscle use Cardiovascular: regular rate, rhythm, no gallop, no murmur Abdomen: normal bowel sounds, soft, + tenderness (mid-epigatric region) Extremities: no pedal edema, no calf tenderness Neurologic/Psychiatric: alert, oriented x 3 Skin: normal color, warm/dry Laboratory Results Last 24 Hours Test 12/18/17 17:59 12/19/17 00:16 12/19/17 06:19 12/19/17 08:19 Bedside Glucose 172 mg/dl 165 mg/dl 143 mg/dl Sodium Level 138 mmol/L Potassium Level 3.5 mmol/L Chloride Level 103 mmol/L Carbon Dioxide Level 27 mmol/L Anion Gap 8.0 mmol/L Blood Urea Nitrogen 11 mg/dl Creatinine 0.61 mg/dl Est Creatinine Clear Calc Drug Dose 243.8 ml/min Estimated GFR () > 150.0 Estimated GFR (Non- 138.8 BUN/Creatinine Ratio 17.8 Random Glucose 149 mg/dl Calcium Level 7.5 mg/dl Lipase 209 U/L Test 12/19/17 11:46 Bedside Glucose 163 mg/dl Assessment and Plan Mr. Aldana is a 27 y/o male with PMHx of HTN, HLD, T2DM, GERD, S/P Cholecystectomy, and S/P Appendectomy who presents to the ED c/o abdominal pain and inability to eat x 4 days. Sepsis from Necrotic Pancreatitis with Normal Enzymes: IMPROVING - Possible pancreatitis in setting of uncontrolled DM/hyperlipidemia/obesity; MRCP negative for choledocholithiasis - Advance to clear liquids and can reduce fluids to NSS at 100 mL/hr - Ciprofloxacin 400 mg IV BID and Flagyl 500 mg IV Q8H - Dilaudid EVENTS INTERN; PRN anti-emetics - GI following - - plan as above with need of F/U imaging and possible EUS in near future HTN: - Metoprolol 50 mg BID and Hydralazine PRN; Hold HCTZ/Lisinopril HLD: - Hold Atorvastatin at this time T2DM, Uncontrolled: - Reports last A1c was 9 - Hold Metformin and Basaglar and cover with Lantus 20 units SC daily and SSI - currently with good control Code Status: FULL RESUSCITATION Disposition: From home - await clinical improvement - suspect possible 3-4 days and slow advancement of diet Continued [facility] stay due to: inadequate po fluid intake, inadequate oral pain control, multiple IV medications needed Discharge planning: home
[2017-12-19] MEDS: ENOXAPARIN 40 MG/0.4 ML SYR SC SCH (20:48)
[2017-12-19] MEDS: INSULIN GLARGINE SOLOSTAR 100 UNITS/ML 3 ML PEN SC SCH (20:51)
[2017-12-19] MEDS ORDERED: NURSING VERBAL MED ORDER ONE (22:30)
[2017-12-20] VITALS: O2SAT 94
[2017-12-20] MEDS: METRONIDAZOLE / NSS 500 MG in PREMIXED NSS 100 ML IV SCH ×2 (03:15→11:18)
[2017-12-20] MEDS: SODIUM CHLORIDE 0.9% 1000ML 1,000 ML IV SCH ×2 (03:15→12:49)
[2017-12-20] MEDS: HYDROmorphone HCL 0.5MG/ML 50 ML CASSETTE IV PRN (03:34)
[2017-12-20 04:34] VITALS: BP 138/87; PULSE 53; TEMP 36.6; O2SAT 94
[2017-12-20 06:00] LABS: HEMOGLOBIN 14.6 g/dL (14.0-18.0); MEAN CELL VOLUME 90.3 fL (80-100); MEAN CORPUSCULAR HEMOGLOBIN 30.7 pg (25-34); MEAN PLATELET VOLUME 10.6 fL (7.4-10.4); PLATELET COUNT 138 K/uL (130-400); RED CELL DISTRIBUTION WIDTH CV 12.9 % (11.5-14.5); RED CELL DISTRIBUTION WIDTH SD 42.8 fL (36.4-46.3); WHITE BLOOD COUNT 8.93 K/uL (4.8-10.8)
[2017-12-20 06:31] LABS: BLOOD UREA NITROGEN 7 mg/dl (7-18); CALCIUM 7.7 mg/dl (8.5-10.1); CARBON DIOXIDE 28 mmol/L (21-32); CREATININE 0.61 mg/dl (0.60-1.40); GLUCOSE 158 mg/dl (70-99); POTASSIUM 3.5 mmol/L (3.5-5.1); SODIUM 139 mmol/L (136-145)
[2017-12-20 07:19] VITALS: BP 138/78; PULSE 66; TEMP 36.8; O2SAT 97
[2017-12-20] MEDS: INSULIN ASPART 100 UNITS/ML 3 ML PEN SC SCH ×2 (08:35→12:52)
[2017-12-20] MEDS: METOPROLOL TARTRATE 50 MG TAB PO SCH (08:36)
[2017-12-20] MEDS: PANTOprazole INJ 40 MG in SYRINGE 0 ML IV SCH (08:36)
[2017-12-20] MEDS: CIPROFLOXACIN / D5W 400 MG in PREMIXED IN D5W 200 ML IV SCH (08:36)
[2017-12-20 08:40] VITALS: O2SAT 97
[2017-12-20] MEDS ORDERED: HYDROmorphone INJ 0.5 MG/0.5 ML SYR IV PRN (09:30)
[2017-12-20 11:43] VITALS: BP 155/84; PULSE 63; TEMP 37.1; O2SAT 97
--- NOTE | 2017-12-20 13:45 | Discharge Instructions ---
Discharge Instructions Date of Service Dec 20, 2017. Admission Reason for Admission: Hyperglycemia,Pancreatitis Discharge Discharge Diagnosis / Problem: Necrotizing Pancreatitis Discharge Goals Goal(s): Decrease discomfort, Improve function, Increase independence Activity Recommendations Activity Limitations: per Instructions/Follow-up section Lifting Limitations: gradually increase as tolerated Exercise/Sports Limitations: gradually increase as tolerated Shower/Bathe: no limitations . Instructions / Follow-Up Instructions / Follow-Up Necrotizing Pancreatitis: - This is when pancreatitis (inflammation of the pancreas) goes awhile (usually a couple weeks) and destroys some of the pancreas. With antibiotics and treatment of the cause of pancreatitis, the pancreas can help heal itself. - It is still early to know how the pancreas will react. You will need a follow- up CT (CAT scan) of the abdomen to look at the pancreas to see how it looks. Your improvement lead or your family doctor could order this in the next week or two. - You may also need a scope that has an ultrasound on the end that they insert in the mouth and look at the pancreas. - Necrotizing pancreatitis can heal on its own but some people may need surgery to remove the bad part of the pancreas. Therefore it will be extremely important to follow-up with your family doctor and your improvement lead. Of course, if your symptoms severely worsen with fever/chills, increased pain, nausea/vomiting please call 911 or come to the ER - Recommend to eat slowly and drink plenty of fluids. Recommend a well-balanced diet with good fats (fish, nuts) and low-carb to better control sugars. Eating can make your belly hurt more as your pancreas tries to help break foods down by sending out enzymes (pancreatic enzymes) - ABSOLUTELY NO ALCOHOL CONSUMPTION THIS CAN EASILY CAUSE PANCREATITIS - Your MRCP scan did not show a stone in your bile ducts. This was likely caused by high triglycerides and uncontrolled sugar levels - You will be started on Tricor to help reduce the triglycerides. But you can also help control this with getting those sugars under control and to continue what you are doing with weight loss and increased physical activity - You will be on Ciprofloxacin 500 mg twice a day and Metronidazole 500 mg three times a day for a total of 10 days. TAKE ALL OF YOUR ANTIBIOTIC EVEN IF FEELING COMPLETELY BETTER. Your doctor may choose to continue you on antibiotics even longer. -- You are on two different antibiotics to cover all the possible bacteria that lives in the GI tract - Also gave a prescription for Protonix. This is an acid reducing medication to help with GI issues and protect the stomach lining. - Pancreatitis can be a chronic thing and may happen again. Reducing risk factors will be the best thing to do. This includes sugar control, cholesterol/ triglyceride control, and weight control. Again avoidance of alcohol as well - Your prescriptions were sent to your pharmacy but will print them if you need to take them somewhere else. You were also sent home with a couple pain medications and doses of your antibiotics Diabetes: - To help prevent this and other health conditions, the goal is to get your A1c closer to 6.5. - Recommend to continue your long acting insulin. Please watch your sugars and recommend to write them down so they can be reviewed by your doctor. Recommend to get established with endocrinology (these are diabetes specialists) which I believe your family doctor is in the process of doing - If you are eating regularly and tolerating food without issue, would recommend to take your full long acting dose that you were prior to coming in. If you are not eating much or just having small snacks you can cut the dose in half. However, if your not feeling well and not eating you need to get checked out by a doctor. - Would recommend holding the Metformin until tolerating a full diet and if you are then you can add this back into your medication regimen to get better control of the sugars. Again, would recommend to monitor your sugars closely Home Medications: - You may continue your home medications as previously prescribed as we did not make changes with these Follow-Up: - Please call your GI doctor and get an appointment as soon as possible. You will need a follow-up scan. Please take these instructions with you to your GI doctor and family doctor appointment - Our case consultant will call with an appointment with your family doctor. If you do not here from case management in a couple days please call your family doctor to get an appointment. We will send information to them but again take these instructions with you to that appointment. Current Hospital Diet Patient's current hospital diet: Diabetes Type 2 Diet, Full Liquid Diet Discharge Diet Recommended Diet: Diabetes Type 2 Diet Pending Studies Studies pending at discharge: no Laboratory Results Lipid Panel Test 12/17/17 19:56 Range/Units Triglycerides Level 728 H 0-150 mg/dl Medical Emergencies . Who to Call and When: Medical Emergencies: If at any time you feel your situation is an emergency, please call 911 immediately. . Non-Emergent Contact Non-Emergency issues call your: Primary Care Provider Call Non-Emergent contact if: you have a fever, your pain is concerning you, you have any medication questions . . "Provider Documentation" section prepared by Rosa Wood. .
[2017-12-20] MEDS ORDERED: METR-163 PO (13:55)
[2017-12-20] MEDS ORDERED: ONDA4TAB10 SL (13:55)
[2017-12-20] MEDS ORDERED: PANT40TA PO (13:55)
[2017-12-20] MEDS ORDERED: CIPR-304 PO (13:55)
[2017-12-20] MEDS ORDERED: FENO48TA9 PO (13:55)
[2017-12-20] MEDS ORDERED: INSU100I23 SC (13:56)
[2017-12-20] MEDS ORDERED: OXYC-57 PO (14:17)
[2017-12-20] MEDS ORDERED: METRONIDAZOLE 500 MG TAB PO SCH ×2 (15:00→20:00)
[2017-12-20] MEDS ORDERED: CIPROFLOXACIN 500 MG TAB PO SCH ×2 (15:00→20:00)
[2017-12-20 15:27] VITALS: BP 155/84; PULSE 63; TEMP 37.1; O2SAT 97
[2017-12-20] MEDS ORDERED: PERCOCET HOME PACK PO ONE (15:30)
--- NOTE | 2017-12-20 16:39 | Discharge Summary ---
Discharge Summary Date of Service Dec 20, 2017. Discharge Summary Admission Date: Dec 17, 2017 at 15:36 Discharge Date: Dec 20, 2017 Discharge Disposition: Home Principal Diagnosis: Necrotizing Pancreatitis Problems/Secondary Diagnoses: 1. HTN 2. HLD 3. T2DM 4. GERD 5. S/P Cholecystectomy 6. S/P Appendectomy 7. S/P Adenoidectomy/Tonsillectomy Procedures: ABDOMEN AND PELVIS CT WITH IV CONTRAST FINDINGS: Mild dependent subsegmental bibasilar atelectasis. Calcific granulomata about the left lung base. No pneumatosis or pneumoperitoneum. Imaged inferior cardiac chambers are unremarkable. Mildly prominent nonenlarged epicardial lymph nodes redemonstrated. Suggested fatty infiltration of the liver. No intrahepatic biliary ductal dilation. Patent portal vein. Focal area of narrowing about the superior mesenteric vein again seen on image 22 series 3. The spleen and adrenal glands are unremarkable. Upper abdominal varices are redemonstrated. There is moderate interstitial and peripancreatic inflammation centered about the pancreatic head and uncinate process. There is a focal area of ill-defined decreased density about the uncinate process, 3.4 x 2.4 cm on image 214 series 3 suggestive of pancreatic necrosis. No drainable fluid collections. Circumferential wall thickening about the duodenum is noted with surrounding inflammation, likely reactive. No bowel obstruction. Trace edema tracks about the right pericolic gutter. Kidneys, ureters and bladder are unremarkable. Minimal colonic diverticulosis without diverticulitis. Prior appendectomy. Aorta and IVC are unremarkable. There are no pathologically enlarged lymph nodes identified. Bones appear intact. IMPRESSION: 1. Moderate interstitial and peripancreatic inflammation centered about the pancreatic head and uncinate process is compatible with acute pancreatitis . Hypodense parenchyma centered about the uncinate process suggests developing parenchymal necrosis. 2. Wall thickening of the duodenum is likely reactive. 3. Focal luminal narrowing about the superior mesenteric vein redemonstrated along with upper abdominal varices. 4. Prior cholecystectomy and appendectomy. 5. Suggested fatty infiltration of the liver. MRCP FINDINGS: Localizer images: Unremarkable. Lung bases: Lungs and pleural spaces clear. Normal heart size. No pericardial or pleural effusion. Liver: Normal morphology. Biliary: No intrahepatic or extrahepatic biliary ductal dilatation. No choledocholithiasis. Gallbladder surgically absent. The cystic duct is nondilated. Pancreas: Pancreatic duct nondilated and normal in its anatomy. No evidence of pancreas divisum. Enlarged and edematous pancreatic head with significant surrounding inflammatory change. Trace peripancreatic fluid. No upstream pancreatic ductal dilatation. Ill-defined heterogeneously T2 hyperintense region in the onset measuring 3.5 cm in diameter likely representing an acute or chronic collection. Spleen: Mildly enlarged, measuring 13.7 cm in maximal sagittal dimension. Adrenal glands: Normal noncontrast appearance. Kidneys and ureters: Normal noncontrast appearance. No hydronephrosis. Normal ureters. Bowel: Mild circumferential wall thickening of the descending portion of the duodenum, likely secondarily reactive. Peritoneal cavity: No free fluid. Lymph nodes: No gross lymphadenopathy allowing for noncontrast technique. Vasculature: Stenosis of the superior mesenteric vein. Abdominal wall: Normal. Musculoskeletal: Normal. IMPRESSION: 1. Findings again consistent with acute pancreatitis, specifically necrotizing pancreatitis with an acute necrotic collection in the uncinate. Normal pancreatic duct anatomy. 2. No choledocholithiasis. A surgical changes of cholecystectomy. 3. Reactive changes of the descending duodenum. 4. Stenosis of the SMV better demonstrated on prior contrast enhanced CT. 5. Mild splenomegaly. Consultations: 1. Gastroenterology - Erica Kaiser PA-C and Dr. Meyer Medication Reconciliation New Medications: Ciprofloxacin HCl (Ciprofloxacin) 500 Mg Tab 500 MG PO BID for 10 Days, #20 TABS Fenofibrate (Tricor) 48 Mg Tab 1 TAB PO DAILY for 30 Days, #30 TAB Metronidazole (Flagyl) 500 Mg Tab 500 MG PO TID for 10 Days, #30 TAB Ondasetron Odt (Zofran Odt) 4 Mg Tab 4 MG SL Q6H PRN for Nausea for 5 Days, #20 TAB Oxycodone/Acetaminophen 5MG/325MG (Percocet 5MG/325MG) Tab 1 TABLET PO Q4H PRN for Pain, #30 TAB PAIN Pantoprazole Sodium (Protonix) 40 Mg Tab 40 MG PO BID for 14 Days, #28 TAB Continued Medications: Albuterol Hfa (Ventolin Hfa) 200 Puffs/60317 Mcg Aers 2 PUFFS INH Q4H PRN for SOB/Wheezing, INHALER Aspirin (Aspirin Ec) 81 Mg Tab 81 MG PO DAILY Atorvastatin (Lipitor) 20 Mg Tab 20 MG PO HS, TAB Ibuprofen (Advil) 200 Mg Tab 200 MG PO BID PRN for Pain or Fever, TAB Insulin Glargine (Basaglar Kwikpen) 100 Unit/Ml Inj 54 UNITS SC DAILY Lisinopril/Hctz (Zestoretic 20MG/12.5MG) Tab 1 TAB PO DAILY, TAB Loratadine (Claritin) 10 Mg Tab 10 MG PO DAILY, TAB Metformin Hcl (Glucophage) 1,000 Mg Tab 1000 MG PO BID, TAB Metoprolol Tartrate (Lopressor) 50 Mg Tab 50 MG PO BID, TAB Montelukast Sodium (Singulair) 10 Mg Tab 10 MG PO HS PRN for Allergic Reaction, TAB Discontinued Medications: Tramadol (Ultram) 50 Mg Tab 50 MG PO DAILY PRN for Pain, TAB Discharge Exam REVIEW OF SYSTEMS Constitutional: No fever, No chills Respiratory: No cough, No shortness of breath Cardiovascular: No chest pain Abdomen: No pain, No nausea, No vomiting, No diarrhea, No constipation Musculoskeletal: No swelling, No calf pain Male : No dysuria Neurologic: No numbness/tingling Heme: No abnormal bleeding/bruising PHYSICAL EXAM: General Appearance: WD/WN, no apparent distress Eyes: sclerae normal ENT: hearing grossly normal Neck: supple, no JVD, no carotid bruits Respiratory/Chest: lungs clear, normal breath sounds, no respiratory distress, no accessory muscle use Cardiovascular: regular rate, rhythm, no gallop, no murmur Abdomen: normal bowel sounds, soft, no tenderness to light and deep palpation Extremities: no pedal edema, no calf tenderness Neurologic/Psychiatric: alert, oriented x 3 Skin: normal color, warm/dry Hospital Course ADMISSION: Mr. Aldana is a 27 y/o male with PMHx of HTN, HLD, T2DM, GERD, S/P Cholecystectomy, and S/P Appendectomy who presents to the ED c/o abdominal pain and inability to eat x 4 days. Patient reports he has had ongoing issues with severe intermittent abdominal pain with no known etiology at those times. He has undergone colonoscopies x 2 for irregular bowel movements and rectal bleeding. States only finding was hemorrhoids. He was last seen in the ED in September for the same pain. At that time, CT suggested possibly early pancreatitis but had normal WBC and normal Lipase. He ultimately returned home even though was offered admission. Patient states he has been doing well since but this pain is a chronic issue for him and was tolerable until now. He reports severe waxing and waning mid-abdominal pain that he reports feels exactly how he felt when he got his gallbladder out. Pain comes on with eating and reports associated nausea/vomiting. He had is gallbladder out in 2015. He was told of possible retention stones but has never been worked up. He denies ever being told he had pancreatitis in the past. He does have uncontrolled T2DM and HLD. He is unsure of his last lipid panel results but states his A1c is 9. He was started on Basaglar and currently taking 54 units and reporting efforts to lose weight with some intentional weight loss. He reports very rare ETOH intake. He complains of associated nausea, emesis, and chills. Last moved his bowels this AM and were his normal. HOSPITAL COURSE: Sepsis from Necrotic Pancreatitis with Normal Enzymes: IMPROVING - Possible pancreatitis in setting of uncontrolled DM/hyperlipidemia/obesity; MRCP negative for choledocholithiasis - Advanced diet to regular with good tolerance - no increased abdominal pain or N/V - Due to severe pain initially was managed with Dilaudid [employer] but was successfully weaned - Will cover with Ciprofloxacin 500 mg BID x 10 days and Flagyl 500 mg TID x 10 days; Protonix 40 mg BID x 14 days; Tricor 48 mg daily for hypertriglyceridemia - Patient has good pain control and is tolerating a diet. He expresses some family issues and wanted to return home today. Normally would advance the diet more slowly but is stable and expresses clear understanding of signs and symptoms that would warrant returning to the hospital. Extensive written instructions given as well. Patient is stable and deemed suitable to discharge and will make sure close PCP follow-up obtained and GI F/U as he will need F/U CT and did express that possible surgical intervention pending clinical course -- Patient would like to speak to his surgeon and PCP about GI referral to a local practice. Did express that F/U with [facility] can be arranged if necessary -- [facility] also recommended consideration of EUS to better assess the pancreas as an outpatient T2DM, Uncontrolled: - Reports last A1c was 9 - Recommended to keep a daily log; states he checks his sugars TID - If eating normally recommended to continue his Basaglar full dose but if he is eating less than normal to consider cutting the dose in half. - If sugars are staying lower he could hold Metformin until better dietary intake but could add this back in when intake is baseline Disposition: F/U with PCP and GI - Normally would have kept in-house longer to monitor diet tolerance and pain. Patient wanted to leave due to family issues. Did agree to stay during the day to assess off pain medications and to fully advance the diet. He did not require PRN dosing of pain medication during the day and no issues with regular food. Given the stability of his presentation he was discharged home. Given verbal and written direction of reasons to emergently return to the hospital or call 911. Total Time Spent: Greater than 30 minutes This includes examination of the patient, discharge planning, medication reconciliation, and communication with other providers. Discharge Instructions Please refer to the electronic Patient Visit Report (Discharge Instructions) for additional information. Additional Copies To Dimitrios Kyle M.D.; Byron Devlin D.O.
== END 2017-12-20 16:00 | disposition home or self-care (01) | DRG 871 ==
LOC: C.EDB 12:20 → C.2T 15:36 → ENRESERV 16:15 → C.4E 12-18 16:31
PROVIDERS: ADMIT Internal Medicine; ATTEND Internal Medicine
DX: A41.9 Sepsis, unspecified organism (principal); K85.91 Acute pancreatitis with uninfected necrosis, unspecified; I10 Essential (primary) hypertension; E78.5 Hyperlipidemia, unspecified; E11.65 Type 2 diabetes mellitus with hyperglycemia; K21.9 Gastro-esophageal reflux disease without esophagitis; F17.200 Nicotine dependence, unspecified, uncomplicated; E66.01 Morbid (severe) obesity due to excess calories; Z68.36 Body mass index [BMI] 36.0-36.9, adult; Z79.84 Long term (current) use of oral hypoglycemic drugs; Z79.899 Other long term (current) drug therapy; Z79.82 Long term (current) use of aspirin; Z88.0 Allergy status to penicillin; Z88.2 Allergy status to sulfonamides; Z88.5 Allergy status to narcotic agent

== ENCOUNTER 2019-06-06 08:14 | Inpatient (IN) ==
--- OUTSIDE RECORDS SUMMARY | 2019-06-06 08:16 | External Medical Summary | Continuity of Care Document ---
:1990 Author Name Pedro Luis Cardenas Address Unavailable Unavailable , Care Team Providers Name Role Phone Case Warner ORDOÑEZ Unavailable [email or web address] PCP, UNKNOWN Unavailable Unavailable Problems Active medical history not documented Allergies and Adverse Reactions Allergy history not documented Medications Medications not documented Procedures Procedures not documented Immunizations Immunizations not documented Plan of Treatment Planned Observations Planned Goals not documented Results No Known Results Results not documented
--- OUTSIDE RECORDS SUMMARY | 2019-06-06 08:18 | External Medical Summary | Continuity of Care Document ---
:1990 Author Name Pedro Luis Cardenas Address Unavailable Unavailable , Care Team Providers Name Role Phone Case Warner ORDOÑEZ Unavailable [email or web address] PCP, UNKNOWN Unavailable Unavailable Problems Active medical history not documented Allergies and Adverse Reactions Allergy history not documented Medications Medications not documented Procedures Procedures not documented Immunizations Immunizations not documented Plan of Treatment Planned Observations Planned Goals not documented Results No Known Results Results not documented
[2019-06-06] MEDS ORDERED: ACETAMINOPHEN 1,000 MG/100 ML VIAL IV STA (08:37)
[2019-06-06] MEDS ORDERED: DIAZEPAM 5 MG/ML INJ 10ML VIAL IV ONE (08:38)
[2019-06-06] MEDS: fentaNYL citrate 100 MCG/2 ML VIAL IV PRN ×3 (08:55→10:41)
[2019-06-06] MEDS: SODIUM CHLORIDE 0.9% 1000ML 1,000 ML IV SCH ×2 (08:55→17:32)
[2019-06-06 09:37] LABS: Basophils # (auto) 0.04 K/uL (0-0.2); Basophils % (auto) 0.6 %; Eosinophils # (auto) 0.13 K/uL (0-0.5); Eosinophils % (auto) 1.8 %; Hematocrit (blood only) 50.9 % (42-52); Hemoglobin 17.5 g/dL (14.0-18.0); Immature Granulocytes # (auto) 0.02 K/uL (0.00-0.02); Immature Granulocytes % (auto) 0.3 %; Lymphocytes # (auto) 1.76 K/uL (1.2-3.4); Lymphocytes % (auto) 24.2 %; Mean Corpuscular Hemoglobin 29.6 pg (25-34); Mean Corpuscular Hgb Conc 34.4 g/dL (32-36); Mean Platelet Volume 12.4 fL (7.4-10.4); Monocytes # (auto) 0.66 K/uL (0.11-0.59); Monocytes % (auto) 9.1 %; Neutrophils # (auto) 4.66 K/uL (1.4-6.5); Nucleated RBC # (auto) 0.18 K/uL (0-0); Nucleated RBC % (auto) 2.4 %; Platelet Count 231 K/uL (130-400); RDW Coefficient of Variation 13.8 % (11.5-14.5); RDW Standard Deviation 40.6 fL (36.4-46.3); Red Blood Count 5.92 M/uL (4.7-6.1); White Blood Count 7.27 K/uL (4.8-10.8)
--- NOTE | 2019-06-06 09:48 | Magnetic Resonance Report ---
MR lumbar spine wo con CLINICAL HISTORY: weakness, paresthesias, back pain TECHNIQUE: Sagittal and axial T1, T2 and STIR images were obtained. COMPARISON STUDY: No previous studies for comparison. OBSERVATIONS: The vertebral bodies and posterior elements appear intact. There is no abnormal bony signal present t o suggest a marrow replacement process. L1-2: No disc protrusions or extrusions. No evidence of spinal canal or neural foraminal compromise. L2-3: There is a moderate to large right paracentral disc extrusion with significant secondary thecal sac deformity and spinal canal narrowing. The disc material may impinge on the right L3 nerve root. L3-4: There is a large central disc extrusion with severe secondary spinal canal narrowing L4-5: There is a broadbase central disc protrusion with mild spinal canal narrowing. L5-S1: There is a small right sided disc protrusion. There is no significant spinal stenosis. There i s no significant foraminal narrowing. The conus medullaris and cauda equina appear normal. IMPRESSION: 1. Large central disc extrusion at the L3-4 level with severe secondary spinal canal narrowing 2. Moderate to large right paracentral disc extrusion at the L2-3 level with moderate secondary spina l canal narrowing 3. Broad-based central disc protrusion at the L4-5 level with mild spinal canal narrowing. 4. Small right-sided disc protrusion at the L5-S1 level without evidence of significant spinal canal narrowing ACT 112: Negative or not required by law. Electronically signed by: Levy Don M.D. 06/06/2019 9:47 AM
[2019-06-06] MEDS ORDERED: HYDROmorphone INJ 0.5 MG/0.5 ML SYR IV STA ×2 (11:21→13:27)
[2019-06-06 13:32] LABS: Appearance Urine Clear (Clear); Bacteria Urine Automated Negative (Negative); Bilirubin Urine Negative (Negative); Blood Urine Negative (Negative); Color Urine Yellow; Epithelial Cell Urine Auto 0-5 /lpf (0-5); Glucose Urine UA 3+ (Negative); Ketones Urine Trace (Negative); Leukocyte Esterase Urine Negative (Negative); Nitrite Urine Negative (Negative); Protein Urine 1+ (Negative); RBC Urine Automated 0-4 /hpf (0-4); Specific Gravity Urine 1.041 (1.000-1.030); Urobilinogen Urine Negative (Negative)
--- NOTE | 2019-06-06 13:48 | History & Physical Report ---
Date of Service June 06, 2019 Assessment & Plan (1) Neurogenic claudication due to lumbar spinal stenosis: Atelectasis with this patient and his family review his MRI findings and clinical presentation. He does have severe spinal stenosis creating evidence of urinary retention and severe back and bilateral leg pain weakness and numbness. I am recommending that we consider urgent decompression and fusion. He would require a lumbar decompression and fusion at L2-3, L3-4, possible L4-5. Risk benefits pros cons and alternatives were outlined in detail. Risks include but not limited to anesthesia blindness stroke paralysis nerve damage blood loss current transfusion infection requiring reoperation benefits hopefully marked improvement of his symptom complex. He understands that some of his symptoms may be permanent. This time he would like to pursue surgery. We will move him to the hospital for preop evaluation make him n.p.o. after midnight and plan for or tomorrow. Present on Admission?: Yes History of Present Illness Chief Complaint: Back and bilateral leg pain with urinary changes. Primary Care Provider: Uri Guzman This is a 28-year-old male that is had 2 months of persistent back pain and numbness to the lower extremities. He states is progressive and now has not gone away for the past few days. Describes difficulty urinating and numbness in the perineal area with urination. 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 His symptoms do involve the back bilateral buttock and lower extremities. He is markedly limited with any prolonged standing and walking. Allergies Allergy/AdvReac Type Severity Reaction Status Date / Time cefuroxime Allergy Severe throat Verified 06/06/19 08:50 swells morphine Allergy Severe "THROAT Verified 06/06/19 08:50 SWELLS" Penicillins Allergy Severe throat Verified 06/06/19 08:50 swells Sulfa (Sulfonamide Allergy Severe throat Verified 06/06/19 08:50 Antibiotics) swells Home Medications Home Medications Medication Instructions Recorded Confirmed Type atorvastatin 80 mg PO DAILY 06/06/19 06/06/19 History fenofibrate 150 mg PO DAILY 06/06/19 06/06/19 History gemfibrozil 600 mg PO BID 06/06/19 06/06/19 History lisinopril-hydrochlorothiazide 1 tab PO DAILY 06/06/19 06/06/19 History metformin 1,000 mg PO BID 06/06/19 06/06/19 History Past Med/Surg History Medical History History of pancreatitis Type 2 diabetes mellitus (Chronic) Surgical History S/P appendectomy S/P cholecystectomy Social History Preferred Language: [place] Citizen Feels Safe at Home: Yes Smoking Status: Light tobacco smoker Physical Exam Physical Exam: On exam he is alert and oriented cooperative. He exhibits plus out of 5 strength plantar flexion dorsiflexion quadriceps and sensory symmetric and intact he does have a bilateral tension signs with even modest straight leg raising. He has difficulty sitting up secondary to pain. He does exhibit numbness in the perineal area. Results & Data Vital Signs (Past 12 Hours) Vital Signs Temp Pulse Pulse Resp BP Pulse Ox 06/06/19 13:11 63 16 151/98 H 96 06/06/19 11:00 67 18 143/74 H 97 06/06/19 09:45 79 16 147/92 H 95 06/06/19 08:17 36.8 C 98 H 18 96
[2019-06-06] MEDS ORDERED: METOCLOPRAMIDE HCL INJ 5 MG/ML 2 ML VIAL IV PRN (14:59)
[2019-06-06] MEDS ORDERED: PROMETHAZINE HCL 12.5 MG in SODIUM CHLORIDE 0.9% 50 ML IV PRN (14:59)
[2019-06-06] MEDS ORDERED: LORazepam 1 MG/2 ML VIAL IV PRN (14:59)
[2019-06-06] MEDS ORDERED: ACETAMINOPHEN 500 MG TAB PO PRN (14:59)
[2019-06-06] MEDS ORDERED: TRAMADOL HCL 50 MG TABLET PO PRN (14:59)
[2019-06-06] MEDS ORDERED: ONDANSETRON 4 MG OD TAB PO PRN (14:59)
[2019-06-06] MEDS ORDERED: LORazepam 1 MG TAB PO PRN (14:59)
[2019-06-06] MEDS: LACTATED RINGER'S 1,000 ML IV SCH (15:07)
[2019-06-06] MEDS: HYDROmorphone INJ 1 MG/ML SYRINGE IV PRN ×3 (15:19→21:48)
[2019-06-06 15:29] LABS: Basophils # (auto) 0.04 K/uL (0-0.2); Basophils % (auto) 0.4 %; Eosinophils # (auto) 0.15 K/uL (0-0.5); Eosinophils % (auto) 1.6 %; Hematocrit (blood only) 46.1 % (42-52); Hemoglobin 17.3 g/dL (14.0-18.0); Immature Granulocytes # (auto) 0.04 K/uL (0.00-0.02); Immature Granulocytes % (auto) 0.4 %; Lymphocytes # (auto) 2.84 K/uL (1.2-3.4); Mean Corpuscular Hgb Conc 37.5 g/dL (32-36); Mean Corpuscular Volume 85.4 fL (80-100); Mean Platelet Volume 10.7 fL (7.4-10.4); Monocytes # (auto) 0.65 K/uL (0.11-0.59); Monocytes % (auto) 7.1 %; Neutrophils # (auto) 5.43 K/uL (1.4-6.5); Neutrophils % (auto) 59.5 %; Platelet Count 130 K/uL (130-400); RDW Coefficient of Variation 12.6 % (11.5-14.5); RDW Standard Deviation 39.2 fL (36.4-46.3); White Blood Count 9.15 K/uL (4.8-10.8)
--- NOTE | 2019-06-06 15:48 | Anesthesiology Consultation ---
Date of Service June 06, 2019 Assessment & Plan Chart Review Chart Review: Acceptable Risk for Surgery Consults Requested none PRP and EKG pending ASA ASA2 Proposed Anesthesia Anesthesia Type: General Risk / Benefits Reviewed With: PT / POA / Parent / Guardian, Accepts Plan and Informed Consent Obtained History Surgery Operation Date: 06/07/19 13:00 Proposed Procedures p L2-L4 Decompression and Fusion, With Spinal Cord Monitoring - German Aguilar DO Height/Weight Height: 5 ft 11 in Weight: 119.7 kg Allergies Allergy/AdvReac Type Severity Reaction Status Date / Time cefuroxime Allergy Severe throat Verified 06/06/19 08:50 swells morphine Allergy Severe "THROAT Verified 06/06/19 08:50 SWELLS" Penicillins Allergy Severe throat Verified 06/06/19 08:50 swells Sulfa (Sulfonamide Allergy Severe throat Verified 06/06/19 08:50 Antibiotics) swells Medications Home Medications Medication Instructions Recorded Confirmed Last Taken atorvastatin 80 mg PO DAILY 06/06/19 06/06/19 Unknown fenofibrate 150 mg PO DAILY 06/06/19 06/06/19 Unknown gemfibrozil 600 mg PO BID 06/06/19 06/06/19 Unknown lisinopril-hydrochlorothiazide 1 tab PO DAILY 06/06/19 06/06/19 Unknown metformin 1,000 mg PO BID 06/06/19 06/06/19 Unknown Active Medications Generic Name Dose Route Start Last Admin Trade Name Freq PRN Reason Stop Dose Admin Hydromorphone HCl 1 mg 06/06/19 14:59 06/06/19 15:19 Dilaudid IV 06/20/19 14:58 1 mg Q3H PRN Administration severe pain (scale 7-10) Lactated Ringer's 1,000 mls @ 75 mls/hr 06/06/19 14:59 06/06/19 15:07 Lr IV 07/06/19 14:58 75 mls/hr .[id number] FABIO Administration Past Medical History Medical History (Updated 06/06/19 @ 16:28 by Kelsea Carl DO) History of pancreatitis Hypertension borderline Type 2 diabetes mellitus (Chronic) HgA1c 05/2019=11 Past Family History Family History (Updated 06/06/19 @ 16:28 by Kelsea Carl DO) Father Coronary heart disease NM at age 32 Past Surgical History Surgical History (Updated 06/06/19 @ 16:28 by Kelsea Carl DO) H/O arthroscopic knee surgery x2 S/P appendectomy S/P cholecystectomy Social History Smoking Status: Light tobacco smoker tobacco type: cigarettes Smoking cigarettes per day: 2 Do You Dip or Chew Tobacco: Yes Hx Alcohol Use: Yes Alcohol type: beer alcohol intake frequency: a few times a month Hx Substance Use: No substance use type: does not use Physical Exam Vital Signs Last Vital Signs Temp 37.0 C 06/06/19 14:55 Pulse 72 06/06/19 14:55 Resp 18 06/06/19 14:55 BP 159/96 H 06/06/19 14:55 Pulse Ox 95 06/06/19 14:55 ENMT Mouth: no TMJ abnormality Thyromental Distance: > or= 3.5 Finger Breadths Mallampati Class: II Neck normal visual inspection, trachea midline, + thick neck and + facial hair; neck extension not limited Respiratory normal respiratory effort Auscultation: lungs clear to auscultation bilaterally Cardiovascular Rate/Rhythm: regular rate and regular rhythm Heart Sounds: no murmur Musculoskeletal Spine: + lumbar spinal tenderness; normal cervical ROM Extremities: full ROM of extremities Neurologic moves all extremities Psychiatric Orientation: alert and oriented x 3 Testing Laboratory Results 06/06/19 15:18 06/06/19 15:18 Urine Color Yellow 06/06/19 13:15 Urine Appearance Clear (Clear) 06/06/19 13:15 Urine pH 7.0 (4.5-7.5) 06/06/19 13:15 Ur Specific Adams 1.041 (1.000-1.030) H 06/06/19 13:15 Urine Protein 1+ (Negative) H 06/06/19 13:15 Urine Glucose (UA) 3+ (Negative) H 06/06/19 13:15 Urine Ketones Trace (Negative) H 06/06/19 13:15 Urine Nitrite Negative (Negative) 06/06/19 13:15 Ur Leukocyte Esterase Negative (Negative) 06/06/19 13:15 Urine WBC (Auto) 1-5 /hpf (0-5) 06/06/19 13:15 Urine RBC (Auto) 0-4 /hpf (0-4) 06/06/19 13:15 U Hyaline Cast (Auto) 1-5 /lpf (0-5) 06/06/19 13:15 U Epithel Cells (Auto) 0-5 /lpf (0-5) 06/06/19 13:15 Urine Bacteria (Auto) Negative (Negative) 06/06/19 13:15 PRP pending 06/06/19 Electrocardiogram Date: 06/06/19 pending
[2019-06-06] MEDS ORDERED: DEXTROSE 50% 50 ML SYRINGE IV PRN (16:27)
[2019-06-06] MEDS ORDERED: GLUCAGON FOR INJ 1 MG VIAL SQ PRN (16:27)
[2019-06-06] MEDS ORDERED: CARBOHYDRATES FOR HYPOGLYCEMIA PO PRN (16:27)
[2019-06-06] MEDS ORDERED: GLUCOSE 40% GEL 15 GM TUBE PO PRN (16:27)
[2019-06-06] MEDS ORDERED: GLUCOSE 10 TABS/TUBE PO PRN (16:27)
[2019-06-06] MEDS ORDERED: METFORMIN HCL 500 MG TAB PO SCH (17:00)
--- NOTE | 2019-06-06 17:07 | Hospitalist Consultation ---
Date of Consultation June 06, 2019 Assessment & Plan (1) Neurogenic claudication due to lumbar spinal stenosis: Planning for OR in AM with Dr. Aguilar Pt with urinary retention Pre-op Hb 17.3 Pt is a much higher risk for OR given uncontrolled DM x10yrs, heavy chewing tobacco use, markedly elevated TG, and FH of DC in father at 32 y/o. That being said, pt does need surgical intervention for his spinal stenosis in the near future. (2) Hyperlipidemia: continue home meds Lab called surgeon to report that TG were so high that BMP could not be calculated This is likely the cause for pt's chronic pancreatitis Was noted to be 728 in 2018 and other labs were able to be run at that time (3) Type 2 diabetes mellitus: SSI PRN A1c 05/2019 11 with PCP (4) Hypertension: continue home meds (5) Tobacco use disorder: Nicotine patch Gave info for PA QUIT LINE (6) History of pancreatitis: Pt is currently pain free but states he has intermittent pain daily at baseline Advised that OR status could affect this and to alert nursing camilla if abd pain becomes more than baseline (7) DVT prophylaxis: As per ortho History of Present Illness Attending Physician: German Aguilar, DO History of Present Illness 28 y/o M who was admitted on 06/06 prior to surgery for spinal stenosis causing urinary retention and LE numbness and tingling with Dr. Aguilar. OR is planned for tomorrow AM. Pt has had worsening back pain, but is otherwise in his usual state of health. He has been tolerating PO without issue. Pt has chronic pancreatitis and therefore has abd pain that comes and goes at baseline. No pain during our discussion. Pt denies fever, SOB, chest pain, n/v/c/d, LE swelling. Pt states he is unsure when his back started to hurt. 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 Pt states he had labs done with PCP and his A1c was 11. He has been on insulin for years. 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 Allergies Allergy/AdvReac Type Severity Reaction Status Date / Time cefuroxime Allergy Severe throat Verified 06/06/19 08:50 swells morphine Allergy Severe "THROAT Verified 06/06/19 08:50 SWELLS" Penicillins Allergy Severe throat Verified 06/06/19 08:50 swells Sulfa (Sulfonamide Allergy Severe throat Verified 06/06/19 08:50 Antibiotics) swells Home Medications Home Medications Medication Instructions Recorded Confirmed Type Lantus U-100 Insulin 100 units SC HS 06/06/19 06/06/19 History atorvastatin 80 mg PO HS 06/06/19 06/06/19 History fenofibrate 145 mg PO DAILY 06/06/19 06/06/19 History gemfibrozil 600 mg PO BID 06/06/19 06/06/19 History lisinopril-hydrochlorothiazide 1 tab PO DAILY 06/06/19 06/06/19 History metformin 1,000 mg PO BID 06/06/19 06/06/19 History Patient History Medical History History of pancreatitis Hypertension borderline Type 2 diabetes mellitus (Chronic) HgA1c 05/2019=11 Surgical History H/O arthroscopic knee surgery x2 S/P appendectomy S/P cholecystectomy Family History Father Coronary heart disease DC at age 32 Social History (Updated 06/06/19 @ 17:06 by Carlotta Robb DO) Preferred Language: [place] Communication Ability: Effective Senior Trainer Required: No Beliefs That Will Affect Care: None Current Living Situation: Spouse Other Information That Helps Us Care for You: No Feels Safe at Home: Yes Safety Concerns: Feels Safe At This Time Smoking Status: Light tobacco smoker Tobacco Type: cigarettes and smokeless tobacco ; Cigarettes Per Day: 2 ; Do You Dip or Chew Tobacco: Yes (1 can per day) ; Hx Alcohol Use: Yes Alcohol type: beer Alcohol Intake Frequency Comment: few times a year Hx Substance Use: No Review of Systems Review of Systems: Pertinent positives and negatives reviewed in HPI--all others negative Physical Exam Constitutional: WD/WN, vitals as above Eyes: normal visual sesay by confrontation and + anicteric sclerae Neck: normal visual inspection and trachea midline Respiratory: normal respiratory effort, lungs clear to auscultation Cardiovascular: Rate/Rhythm: regular rate and regular rhythm Gastrointestinal (Abdomen): Inspection/Auscultation: abdomen not distended Percussion/Palpation: abdomen soft; abdomen nontender Musculoskeletal: Head/Neck/Chest: normocephalic and head atraumatic negative for edema, peripheral pulses intact Skin: no rashes, warm and dry Neurologic: awake; not confused Speech / Cognition: normal speech Psychiatric: A+Ox3, euthymic affect Results & Data ([facility]) Vital Signs (Past 12 Hours) Vital Signs Temp Pulse Pulse Pulse Resp BP BP 06/06/19 14:55 37.0 C 72 18 159/96 H 06/06/19 13:11 63 16 151/98 H 06/06/19 11:00 67 18 143/74 H 06/06/19 09:45 79 16 147/92 H 06/06/19 08:17 36.8 C 98 H 18 Pulse Ox 06/06/19 14:55 95 06/06/19 13:11 96 06/06/19 11:00 97 06/06/19 09:45 95 06/06/19 08:17 96 Diagnostic Findings L spine MRI: 1. Large central disc extrusion at the L3-4 level with severe secondary spinal canal narrowing 2. Moderate to large right paracentral disc extrusion at the L2-3 level with moderate secondary spinal canal narrowing 3. Broad-based central disc protrusion at the L4-5 level with mild spinal canal narrowing. 4. Small right-sided disc protrusion at the L5-S1 level without evidence of significant spinal canal narrowing PG Care Time/CCT Total # of Minutes Spent Total Time Spent with Patient: Total time spent is greater than 50% in coordination of care (as documented) at patient's floor/unit and/or counseling patient: Coding Level of Care Code 91683 Inpt Consult Level 4 Diagnoses Neurogenic claudication due to lumbar spinal stenosis M48.062 Hyperlipidemia E78.5 Type 2 diabetes mellitus E11.9 Hypertension I10 Tobacco use disorder F17.200 History of pancreatitis Z87.19 DVT prophylaxis Z29.9
[2019-06-06] MEDS ORDERED: Nursing to Pharmacy Communication ONE (17:21)
[2019-06-06] MEDS: NICOTINE 21 MG/24 HR TDSY TD SCH (17:43)
[2019-06-06] MEDS: INSULIN ASPART 100 UNITS/ML 3 ML PEN SC SCH ×2 (17:51→21:50)
[2019-06-06 19:17] LABS: Albumin Level 3.4 gm/dl (3.4-5.0); BUN Creatinine Ratio 18.9 (10-20); Bilirubin,Total 0.8 mg/dl (0.2-1); Calcium 8.9 mg/dl (8.5-10.1); Creatinine Clr Calc Pharmacy 201.8 ml/min; Est GFR (African American) 148.4; Globulin 3.3 gm/dl (2.5-4.0); Total Protein 6.7 gm/dl (6.4-8.2)
[2019-06-06 19:18] LABS: Potassium 3.7 mmol/L (3.5-5.1)
[2019-06-06] MEDS: gemfibroziL 600 MG TAB PO SCH (20:40)
[2019-06-06] MEDS: DOCUSATE SODIUM 100 MG CAP PO SCH (20:40)
[2019-06-06] MEDS: ONDANSETRON INJ 2 MG/ML 2 ML VIAL IV PRN (23:17)
[2019-06-07] MEDS ORDERED: Nursing to Pharmacy Communication ONE ×2 (01:47→16:42)
[2019-06-07] MEDS: LACTATED RINGER'S 1,000 ML IV SCH (05:31)
[2019-06-07] MEDS: INSULIN ASPART 100 UNITS/ML 3 ML PEN SC SCH ×4 (06:03→21:23)
[2019-06-07] MEDS: HYDROmorphone INJ 1 MG/ML SYRINGE IV PRN ×3 (06:07→22:02)
--- NOTE | 2019-06-07 08:10 | Emergency Department Note ---
Entered by Ursula Velásquez acting as a scribe for History of Present Illness General Chief complaint: Back Injury/Pain Stated complaint: SEVERE BACK AND HIP PAIN, NUMB/TINGLY WAIST DOWN Time Seen by Provider: 06/06/19 08:26 Source: patient History of Present Illness Onset (ago): day(s) 2 Location: back Radiation: other (hips) Severity: severe Pain Consistency: + other (worsening) Maximum Pain Intensity: 10 Quality: + other (back pain) Relieved By: not by medication (Tylenol, Ibuprofen, Bio Freeze) Exacerbated By: + other (sitting down, twisting and turning at job) Associated symptoms: + fever/chills (Positive chills. Negative fever.) and + other (Positive back pain, hip pain, lower extremity and groin tingling, numbness with urination. Negative falls, trauma, dysuria, abnormal bowel moveme nts. ) The patient is a 28 year old male presenting to the Emergency Department complaining of worsening back pain starting 2 days ago. The patient reports that he has severe lower back pain that radiates to both of his hips. He states that his groin and lower extremities are tingling. He explains that when he urinates he experiences a numb sensation but that it doesnt make it harder for him to urinate. He notes that he has been experiencing chills but hasnt recently taken his temperature. He adds that he has experienced these symptoms to a degree before, but that his groin has never tingled before and that his back pain usually resolves but hasnt. The patient reports that he has been dealing with this back pain for the past month and a half. He states that he has been to his chiropractor multiple times and that these appointments havent improved his back pain. He explains that sitting down worsens his back pain. He notes that he has been taking Tylenol and Ibuprofen for his back pain which hasnt improved his symptoms. He notes that he recently saw his PCP for his symptoms and was given Bio Freeze that didnt improve his pain. He adds that he is often bending and twisting around for his job. The patient denies recent falls, trauma, fevers, dysuria and abnormal bowel movements. Home Medications Home Medications Medication Instructions Recorded Confirmed Type Lantus U-100 Insulin 100 units SC HS 06/06/19 06/06/19 History atorvastatin 80 mg PO HS 06/06/19 06/06/19 History fenofibrate 145 mg PO DAILY 06/06/19 06/06/19 History gemfibrozil 600 mg PO BID 06/06/19 06/06/19 History lisinopril-hydrochlorothiazide 1 tab PO DAILY 06/06/19 06/06/19 History metformin 1,000 mg PO BID 06/06/19 06/06/19 History Allergies Allergy/AdvReac Type Severity Reaction Status Date / Time cefuroxime Allergy Severe throat Verified 06/06/19 08:50 swells morphine Allergy Severe "THROAT Verified 06/06/19 08:50 SWELLS" Penicillins Allergy Severe throat Verified 06/06/19 08:50 swells Sulfa (Sulfonamide Allergy Severe throat Verified 06/06/19 08:50 Antibiotics) swells Past Med/Surg History Medical History History of pancreatitis Hypertension borderline Type 2 diabetes mellitus (Chronic) HgA1c 05/2019=11 Surgical History H/O arthroscopic knee surgery x2 S/P appendectomy S/P cholecystectomy Family History Father Coronary heart disease [place] at age 32 Social History (Updated 06/06/19 @ 17:06 by Carlotta Robb DO) Preferred Language: Sami Communication Ability: Effective Marketing Campaign Analyst Required: No Beliefs That Will Affect Care: None Current Living Situation: Spouse Other Information That Helps Us Care for You: No Feels Safe at Home: Yes Safety Concerns: Feels Safe At This Time Smoking Status: Light tobacco smoker Tobacco Type: cigarettes and smokeless tobacco ; Cigarettes Per Day: 2 ; Do You Dip or Chew Tobacco: Yes (1 can per day) ; Hx Alcohol Use: Yes Alcohol type: beer Alcohol Intake Frequency Comment: few times a year Hx Substance Use: No Review of Systems See HPI for pertinent positives & negatives. and A total of 10 systems reviewed and were otherwise negative Physical Exam Vital Signs Vital Signs - 24 hr 06/06/19 08:17 06/06/19 09:45 06/06/19 11:00 Temperature 36.8 C Temperature Source Oral Pulse Rate 98 H Pulse Rate [Apical] 79 67 Pulse Rhythm [Apical] Regular Respiratory Rate 18 16 18 Respiratory Effort / Characteristics Non-Labored Spontaneous Non-Labored Spontaneous Respiratory Depth Normal Normal Respiratory Pattern Regular Blood Pressure [Right Arm] 147/92 H 143/74 H Blood Pressure Mean [Right Arm] 110 97 Blood Pressure Position Sitting Pulse Oximetry 96 95 97 Oxygen Delivery Method Room Air Room Air Room Air Sepsis Recent Fever Within 48 Hours No Sepsis New/Unexplained Change in Mental Status No Sepsis Action Taken by Nursing No Action Required 06/06/19 13:11 Temperature Temperature Source Pulse Rate Pulse Rate [Apical] 63 Pulse Rhythm [Apical] Respiratory Rate 16 Respiratory Effort / Characteristics Respiratory Depth Respiratory Pattern Blood Pressure [Right Arm] 151/98 H Blood Pressure Mean [Right Arm] 115 Blood Pressure Position Pulse Oximetry 96 Oxygen Delivery Method Sepsis Recent Fever Within 48 Hours Sepsis New/Unexplained Change in Mental Status Sepsis Action Taken by Nursing GENERAL: Patient is in moderate distress. Alert, uncomfortable appearing, well nourished, non-toxic EYE EXAM: normal conjunctiva, PERRL and EOM's grossly intact OROPHARYNX: no exudate, no erythema, lips, buccal mucosa, and tongue normal and mucous membranes are moist NECK: supple, no nuchal rigidity, no adenopathy, non-tender LUNGS: Clear to auscultation. Normal chest wall mechanics HEART: no murmurs, S1 normal and S2 normal ABDOMEN: abdomen soft, non-tender, normo-active bowel sounds, no masses, no rebound or guarding. BACK: Pain with palpation across low back. No obvious step-off. Back is symmetrical on inspection and there is no deformity, no CVA tenderness. SKIN: no rashes and no bruising UPPER EXTREMITIES: upper extremities are grossly normal. FROM, nml pulses b/l. LOWER EXTREMITIES: No pitting edema. Nml pulses b/l. No evidence of trauma. Subjective sensory difference but equal between the lower extremities, however not normal per patient description. NEURO EXAM: Normal sensorium, cranial nerves II-XII grossly intact, normal speech, no gross weakness of arms, no gross weakness of legs. Left patellar reflex +2/4. Right patellar reflex 1/4. Positive left straight leg raise. Course Course 0826: The patient was evaluated in room B2, and a complete history and physical examination were performed. 1004: I discussed the patients case with Dr. Aguilar - orthopedist. He will come evaluate the patient at [facility]. 1040: The patients nurse reports that Dr. Aguilar was at the patients bedside but was called to the OR and is planning on coming back to the ED and admitting the patient. 1340: I spoke with Dr. Aguilar at this time. He will evaluate the patient for further management. Administered Medications Docusate Sodium (Colace) 100 mg PO BID [facility] Stop: 07/06/19 20:59 Last Admin: 06/06/19 20:40 Dose: 100 mg Documented by: [id number] Gemfibrozil (Lopid) 600 mg PO BID [facility] Stop: 07/06/19 20:59 Last Admin: 06/06/19 20:40 Dose: 600 mg Documented by: [id number] Hydromorphone HCl (Dilaudid) 1 mg IV Q3H PRN PRN Reason: severe pain (scale 7-10) Stop: 06/20/19 14:58 Last Admin: 06/07/19 06:07 Dose: 1 mg Documented by: [id number] Admin: 06/06/19 21:48 Dose: 1 mg Documented by: [id number] Admin: 06/06/19 18:20 Dose: 1 mg Documented by: [id number] Admin: 06/06/19 15:19 Dose: 1 mg Documented by: [id number] Lactated Ringer's (Lr) 1,000 mls @ 75 mls/hr IV .[id number] [facility] Stop: 07/06/19 14:58 Last Admin: 06/07/19 05:31 Dose: 75 mls/hr Documented by: [id number] Infusion: 06/07/19 05:30 Dose: 75 mls/hr Documented by: [id number] Admin: 06/06/19 15:07 Dose: 75 mls/hr Documented by: [id number] Insulin Aspart (Novolog Flexpen) 0 units SC Q6 FABIO Stop: 07/07/19 05:59 Last Admin: 06/07/19 06:03 Dose: 4 units Documented by: [id number] Cosigned by: [id number] Nicotine (Nicoderm Cq) 21 mg TD QAM [facility] Stop: 07/06/19 16:29 Last Admin: 06/06/19 17:43 Dose: 21 mg Documented by: [id number] Ondansetron HCl (Zofran) 4 mg IV Q6H PRN PRN Reason: Nausea &/or Vomiting Stop: 07/06/19 14:58 Last Admin: 06/06/19 23:17 Dose: 4 mg Documented by: [id number] Discontinued Medications Diazepam (Valium) 2.5 mg IV ONE ONE Stop: 06/06/19 08:39 Last Admin: 06/06/19 08:55 Dose: 2.5 mg Documented by: [id number] Fentanyl Citrate (Fentanyl Citrate) 100 mcg IV Q15M PRN PRN Reason: Pain Stop: 06/20/19 08:36 Last Admin: 06/06/19 10:41 Dose: 100 mcg Documented by: [id number] Admin: 06/06/19 09:58 Dose: 100 mcg Documented by: [id number] Admin: 06/06/19 08:55 Dose: 100 mcg Documented by: [id number] Hydromorphone HCl (Dilaudid) 0.5 mg IV NOW STA Stop: 06/06/19 11:22 Last Admin: 06/06/19 11:38 Dose: 0.5 mg Documented by: [id number] Hydromorphone HCl (Dilaudid) 0.5 mg IV NOW STA Stop: 06/06/19 13:28 Last Admin: 06/06/19 13:32 Dose: 0.5 mg Documented by: [id number] Sodium Chloride (Nss 1000ml) 1,000 mls @ 250 mls/hr IV .Q4H FABIO Stop: 07/06/19 08:44 Last Admin: 06/06/19 17:32 Dose: Not Given Documented by: [id number] Infusion: 06/06/19 13:20 Dose: 0 mls/hr Documented by: [id number] Admin: 06/06/19 08:55 Dose: 250 mls/hr Documented by: [id number] Acetaminophen (Ofirmev) 1,000 mg in 100 mls @ 400 mls/hr IV NOW STA Stop: 06/06/19 08:51 Last Infusion: 06/06/19 09:11 Dose: 0 mls/hr Documented by: [id number] Admin: 06/06/19 08:55 Dose: 400 mls/hr Documented by: [id number] Insulin Aspart (Novolog Flexpen) 0 units SC ACHS FABIO Stop: 07/06/19 16:29 Last Admin: 02/10/20 21:50 Dose: 2 units Documented by: [id number] Cosigned by: [id number] Admin: 06/06/19 17:51 Dose: 13 units Documented by: [id number] Cosigned by: [id number] Metformin HCl (Glucophage) 1,000 mg PO BIDM [facility] Stop: 07/06/19 16:59 Last Admin: 06/06/19 18:01 Dose: Not Given Documented by: [id number] Medical Decision Making Differential Diagnosis Differential diagnosis: Etiologies such as musculoskeletal, disc herniation, fracture, aortic disease, metastatic disease, cord compression, discitis, infection, renal colic, gastrointestinal, acute exacerbation of chronic back pain, sciatica, cauda equina, as well as others were entertained. Medical Records Attestation: I reviewed the patient's medical records. Home Medications Current Medication List: was personally reviewed by me Laboratory Data Attestation: I reviewed the patient's lab results. Result diagrams: 06/06/19 15:18 06/06/19 17:32 Lab Results 06/06/19 06/06/19 06/06/19 Range/Units 08:45 08:45 09:48 WBC 7.27 (4.8-10.8) K/uL RBC 5.92 (4.7-6.1) M/uL Hgb 17.5 (14.0-18.0) g/dL Hct 50.9 (42-52) % MCV 86.0 (80-100) fL MCH 29.6 (25-34) pg MCHC 34.4 (32-36) g/dL RDW Std Deviation 40.6 (36.4-46.3) fL RDW Coeff of Ebony 13.8 (11.5-14.5) % Plt Count 231 (130-400) K/uL MPV 12.4 H (7.4-10.4) fL Immature Gran % (Auto) 0.3 % Neut % (Auto) 64.0 % Lymph % (Auto) 24.2 % [place] % (Auto) 9.1 % Eos % (Auto) 1.8 % Baso % (Auto) 0.6 % Immature Gran # (Auto) 0.02 (0.00-0.02) K/uL Neut # (Auto) 4.66 (1.4-6.5) K/uL Lymph # (Auto) 1.76 (1.2-3.4) K/uL [place] # (Auto) 0.66 H (0.11-0.59) K/uL Eos # (Auto) 0.13 (0-0.5) K/uL Baso # (Auto) 0.04 (0-0.2) K/uL Absolute Nucleated RBC 0.18 H (0-0) K/uL Nucleated RBC % (auto) 2.4 % Sodium Cancelled Cancelled Potassium Cancelled Cancelled Chloride Cancelled Cancelled Carbon Dioxide Cancelled Cancelled Anion Gap Cancelled Cancelled BUN Cancelled Cancelled Creatinine Cancelled Cancelled Est Cr Clr Drug Dosing Cancelled Cancelled Est GFR ( Amer) Cancelled Cancelled Est GFR (Non-Af Amer) Cancelled Cancelled BUN/Creatinine Ratio Cancelled Cancelled Glucose Cancelled Cancelled Calcium Cancelled Cancelled Total Bilirubin Cancelled Cancelled AST Cancelled Cancelled ALT Cancelled Cancelled Alkaline Phosphatase Cancelled Cancelled Total Protein Cancelled Cancelled Albumin Cancelled Cancelled Globulin Cancelled Cancelled Albumin/Globulin Ratio Cancelled Cancelled Urine Color Urine Appearance (Clear) Urine pH (4.5-7.5) Ur Specific [place] (1.000-1.030) Urine Protein (Negative) Urine Glucose (UA) (Negative) Urine Ketones (Negative) Urine Blood (Negative) Urine Nitrite (Negative) Urine Bilirubin (Negative) Urine Urobilinogen (Negative) Ur Leukocyte Esterase (Negative) Urine WBC (Auto) (0-5) /hpf Urine RBC (Auto) (0-4) /hpf U Hyaline Cast (Auto) (0-5) /lpf U Epithel Cells (Auto) (0-5) /lpf Urine Bacteria (Auto) (Negative) 06/06/19 Range/Units 13:15 WBC (4.8-10.8) K/uL RBC (4.7-6.1) M/uL Hgb (14.0-18.0) g/dL Hct (42-52) % MCV (80-100) fL MCH (25-34) pg MCHC (32-36) g/dL RDW Std Deviation (36.4-46.3) fL RDW Coeff of Ebony (11.5-14.5) % Plt Count (130-400) K/uL MPV (7.4-10.4) fL Immature Gran % (Auto) % Neut % (Auto) % Lymph % (Auto) % [place] % (Auto) % Eos % (Auto) % Baso % (Auto) % Immature Gran # (Auto) (0.00-0.02) K/uL Neut # (Auto) (1.4-6.5) K/uL Lymph # (Auto) (1.2-3.4) K/uL [place] # (Auto) (0.11-0.59) K/uL Eos # (Auto) (0-0.5) K/uL Baso # (Auto) (0-0.2) K/uL Absolute Nucleated RBC (0-0) K/uL Nucleated RBC % (auto) % Sodium Potassium Chloride Carbon Dioxide Anion Gap BUN Creatinine Est Cr Clr Drug Dosing Est GFR ( Amer) Est GFR (Non-Af Amer) BUN/Creatinine Ratio Glucose Calcium Total Bilirubin AST ALT Alkaline Phosphatase Total Protein Albumin Globulin Albumin/Globulin Ratio Urine Color Yellow Urine Appearance Clear (Clear) Urine pH 7.0 (4.5-7.5) Ur Specific [place] 1.041 H (1.000-1.030) Urine Protein 1+ H (Negative) Urine Glucose (UA) 3+ H (Negative) Urine Ketones Trace H (Negative) Urine Blood Negative (Negative) Urine Nitrite Negative (Negative) Urine Bilirubin Negative (Negative) Urine Urobilinogen Negative (Negative) Ur Leukocyte Esterase Negative (Negative) Urine WBC (Auto) 1-5 (0-5) /hpf Urine RBC (Auto) 0-4 (0-4) /hpf U Hyaline Cast (Auto) 1-5 (0-5) /lpf U Epithel Cells (Auto) 0-5 (0-5) /lpf Urine Bacteria (Auto) Negative (Negative) Imaging Data Radiologist's Impression: Radiology results as stated below per my review and the radiologist's interpretation: MR lumbar spine wo con CLINICAL HISTORY: weakness, paresthesias, back pain TECHNIQUE: Sagittal and axial T1, T2 and STIR images were obtained. COMPARISON STUDY: No previous studies for comparison. OBSERVATIONS: The vertebral bodies and posterior elements appear intact. There is no abnormal bony signal present to suggest a marrow replacement process. L1-2: No disc protrusions or extrusions. No evidence of spinal canal or neural foraminal compromise. L2-3: There is a moderate to large right paracentral disc extrusion with significant secondary thecal sac deformity and spinal canal narrowing. The disc material may impinge on the right L3 nerve root. L3-4: There is a large central disc extrusion with severe secondary spinal canal narrowing L4-5: There is a broadbase central disc protrusion with mild spinal canal narrowing. L5-S1: There is a small right sided disc protrusion. There is no significant spinal stenosis. There is no significant foraminal narrowing. The conus medullaris and cauda equina appear normal. IMPRESSION: 1. Large central disc extrusion at the L3-4 level with severe secondary spinal canal narrowing 2. Moderate to large right paracentral disc extrusion at the L2-3 level with moderate secondary spinal canal narrowing 3. Broad-based central disc protrusion at the L4-5 level with mild spinal canal narrowing. 4. Small right-sided disc protrusion at the L5-S1 level without evidence of significant spinal canal narrowing ACT 112: Negative or not required by law. Electronically signed by: Levy Don M.D. 06/06/2019 9:47 AM Blood Pressure Blood Pressure Findings: Elevated blood pressure Blood Pressure Disposition: further management by hospitalist SCOTTY Narrative Patient presenting with increased back pain, concern for increasing ambulatory dysfunction, weakness, and bilateral paresthesias. No overt incontinence. Patient states paresthesias are across his entire pelvic region not localized to his perineum or proximal medial lower extremities. No evidence of infectious etiology. Patient denies any overt trauma. Given concerning neurologic changes, patient sent for MRI of his spine. Due to significant findings reported by radiology, this was discussed with Dr. Aguilar. Dr. Aguilar did come and see the patient at bedside initially and planned on admitting him, however was called to the OR for an additional case prior to placing admission orders. Patient was kept updated, was given medication in the emergency room regarding pain control. Dr. Aguilar did not want any additional orders placed in the interim. Dr. Aguilar did return to the emergency room and place admission orders on the patient after discussing options for treatment with the patient and family at bedside. Impression & Plan Back pain, Paresthesias, Weakness, Ambulatory dysfunction, Protrusion of intervertebral disc, Extrusion of intervertebral disc Discharge Plan Visit Data *Final* Discharge Date/Time: 06/06/19 14:32 Chief Complaint: Back Injury/Pain Stated Complaint: SEVERE BACK AND HIP PAIN, NUMB/TINGLY WAIST DOWN ED Provider: Rachana Hawkins Discharge Problem: Back pain, Paresthesias, Weakness, Ambulatory dysfunction, Protrusion of intervertebral disc, Extrusion of intervertebral disc Patient Disposition: Admitted As Inpatient Discharge Instructions Interventions: ED Discharge Assessment Last Done: 06/06/19 14:32 Discharge Problem: Back pain Qualifiers: Back pain location: low back pain Chronicity: unspecified Back pain laterality: bilateral Sciatica presence: unspecified whether sciatica present Qualified Code(s): M54.5 - Low back pain The richard's documentation has been prepared under my direction and personally reviewed by me in its entirety. I confirm that the note above accurately reflects all work, treatment, procedures, and medical decision making performed by me.
[2019-06-07] MEDS: gemfibroziL 600 MG TAB PO SCH ×2 (08:25→20:40)
[2019-06-07] MEDS: FENOFIBRATE NANOCRYSTALLIZED 145 MG TABLET PO SCH (08:25)
[2019-06-07] MEDS: DOCUSATE SODIUM 100 MG CAP PO SCH ×2 (08:25→20:40)
[2019-06-07] MEDS: LISINOPRIL/HCTZ 20/25MG 1 TAB PO SCH (08:25)
[2019-06-07] MEDS: NICOTINE 21 MG/24 HR TDSY TD SCH (08:26)
[2019-06-07] MEDS: ATORVASTATIN 40 MG TAB PO SCH (08:26)
[2019-06-07 09:09] LABS: Chol HDL Ratio 7; Cholesterol 253 mg/dl (0-200); HDL Cholesterol 35 mg/dl; Triglycerides 950 mg/dl (0-150)
--- NOTE | 2019-06-07 11:21 | Electrocardiogram Report ---
Test Reason : Blood Pressure : / mmHG Vent. Rate : 065 BPM Atrial Rate : 065 BPM P-R Int : 138 ms QRS Dur : 150 ms QT Int : 422 ms P-R-T Axes : 035 -23 012 degrees QTc Int : 438 ms Normal sinus rhythm with sinus arrhythmia Right bundle branch block Abnormal ECG When compared with ECG of 16-OCT-2017 19:43, Right bundle branch block is now Present Confirmed by Baljit Lane ([id number]) on 06/07/2019 11:21:45 AM Referred By: REFERRED SELF Confirmed By:Baljit Lane
--- NOTE | 2019-06-07 11:53 | Cardiology Consultation ---
Date of Consultation June 07, 2019 Assessment & Plan (1) Preoperative cardiovascular examination: (2) RBBB (right bundle branch block): (3) Neurogenic claudication due to lumbar spinal stenosis: (4) Hyperlipidemia: EKG performed yesterday 06/06/2019 revealed normal sinus rhythm at 65 bpm with right bundle branch block. The right bundle branch block was new compared to September,. Right bundle branch block is not typically associated with ischemic heart disease, and in this patient, may be reflective of underlying hypertension. He states he snores, but is never been worked up for sleep apnea. This is another potential cause of him having a right bundle branch block. An echocardiogram performed today revealed normal biventricular systolic function, without evidence of pulmonary hypertension by Doppler criteria, and normal valvular function. His triglycerides are elevated at 950 mg/dL. He does have a past history of pancreatitis. Total cholesterol was 253, and an LDL could not be calculated due to of the high triglyceride level, and therefore I have requested a direct LDL level. At this time I recommend we continue his current medications. Future considerations include the addition of Vascepa and ezetimibe. And possible consultation with the advanced lipid clinic at [facility]. Patient describes no unstable cardiac signs or symptoms that I think should delay his semiurgent spine surgery. Given his family and personal history as outlined above, I do think aggressive risk factor modification from a cardiac standpoint will be necessary down the road as well as abstinence from cigarette smoking. History of Present Illness Attending Physician: German Aguilar, DO History of Present Illness Tim Aldana is a 28 year old male seen in cardiology consultation per the request of Dr Aguilar for preoperative cardiac assessment and for advice regarding the patient's diagnosis of hypertriglyceridemia. The patient's primary care provider is Dr. Guzman in [place]. He does not follow with cardiology prior to today. He presented via the emergency room yesterday with progressive low back, buttock, and leg discomfort, as well as perineal numbness and difficulty with urination. MRI of the spine yesterday revealed severe multilevel spinal stenosis, and semiurgent decompression surgery is tentatively planned. The patient tells me that he was diagnosed with diabetes and hypercholesterolemia as well as borderline hypertension when he was approximately 20 years old. His medication therapy includes atorvastatin 80 mg daily, fenofibrate, gemfibrozil, Lantus insulin, lisinopril/HCTZ, and metformin. 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 Family History: Father at the age of 43 due to a motor vehicle accident. He did however have a history of premature onset coronary heart disease with his first myocardial infarction at the age of 32 for which she had cardiac stents. The patient's mother is alive at age 55 and suffered a myocardial infarction last year at the age of 54. He has a brother who has had "heart problems "since . He has multiple aunts and uncles who have had heart disease. Details unknown. Allergies Allergy/AdvReac Type Severity Reaction Status Date / Time cefuroxime Allergy Severe throat Verified 06/06/19 08:50 swells morphine Allergy Severe "THROAT Verified 06/06/19 08:50 SWELLS" Penicillins Allergy Severe throat Verified 06/06/19 08:50 swells Sulfa (Sulfonamide Allergy Severe throat Verified 06/06/19 08:50 Antibiotics) swells Home Medications Home Medications Medication Instructions Recorded Confirmed Type Lantus U-100 Insulin 100 units SC HS 06/06/19 06/06/19 History atorvastatin 80 mg PO HS 06/06/19 06/06/19 History fenofibrate 145 mg PO DAILY 06/06/19 06/06/19 History gemfibrozil 600 mg PO BID 06/06/19 06/06/19 History lisinopril-hydrochlorothiazide 1 tab PO DAILY 06/06/19 06/06/19 History metformin 1,000 mg PO BID 06/06/19 06/06/19 History Patient History Medical History History of pancreatitis Hypertension borderline Type 2 diabetes mellitus (Chronic) HgA1c 05/2019=11 Surgical History H/O arthroscopic knee surgery x2 S/P appendectomy S/P cholecystectomy Family History Father Coronary heart disease [place] at age 32 Social History Preferred Language: Kyrgyz Communication Ability: Effective Manager Reimbursement Required: No Beliefs That Will Affect Care: None Current Living Situation: Spouse Other Information That Helps Us Care for You: No Feels Safe at Home: Yes Safety Concerns: Feels Safe At This Time Smoking Status: Light tobacco smoker Tobacco Type: cigarettes and smokeless tobacco ; Cigarettes Per Day: 2 ; Do You Dip or Chew Tobacco: Yes (1 can per day) ; Hx Alcohol Use: Yes Alcohol type: beer Alcohol Intake Frequency Comment: few times a year Hx Substance Use: No Review of Systems Review of Systems: All systems reviewed & are unremarkable except as noted in HPI & below Physical Exam Physical Exam: Temp Pulse Resp BP Pulse Ox 36.5 C 60 18 152/93 H 95 06/07/19 07:08 06/07/19 07:08 06/07/19 07:08 06/07/19 07:08 06/07/19 07:08 Constitutional: No acute distress, although he states he is uncomfortable from a back pain standpoint Respiratory: normal respiratory effort, lungs clear to auscultation Cardiovascular: RRR, no murmur, no edema Gastrointestinal (Abdomen): normal bowel sounds, soft, nontender, no hepatosplenomegaly Neurologic: Conversant, no mental status changes. Able to move all 4 extremities, pinpoint sensation not performed, sensation of his perineal area not tested Results & Data ([facility]) Vital Signs (Past 12 Hours) Vital Signs Temp Pulse Resp BP Pulse Ox 06/07/19 07:08 36.5 C 60 18 152/93 H 95
[2019-06-07 12:08] LABS: LDL Cholesterol Direct 87 mg/dl
[2019-06-07] MEDS ORDERED: fentaNYL citrate 100 MCG/2 ML VIAL ONE (12:27)
[2019-06-07] MEDS ORDERED: MIDAZOLAM HCL 1 MG/ML 2ML VIAL ONE (12:27)
[2019-06-07] MEDS ORDERED: ATROPINE SULFATE 0.1 MG/ML 10ML SYR IV PRN (13:03)
[2019-06-07] MEDS ORDERED: fentaNYL citrate 100 MCG/2 ML VIAL IV PRN (13:03)
[2019-06-07] MEDS ORDERED: ePHEDrine sulfate 50 MG/ML AMP IV PRN (13:03)
--- NOTE | 2019-06-07 13:24 | History & Physical Bridge Note ---
Date of Service June 07, 2019 History & Physical Bridge Note I have examined the patient, reviewed the History & Physical and in the interval since the performance of the History & Physical I have noted the following changes of clinical significance: no changes noted At this time due to his podiatric concerns and hemoglobin A1c at increased levels I would like to avoid fusion. We will plan for decompression only. This will be of L2 334 level.
[2019-06-07] MEDS ORDERED: BUPIVACAINE/EPINEPHRINE 0.25% 1:200,000 30 ML VIAL ONE (13:26)
[2019-06-07] MEDS ORDERED: BACITRACIN INJ 50,000 UNIT VIAL ONE (13:26)
[2019-06-07] MEDS ORDERED: CLINDAMYCIN 600 MG/54 ML D5W IV ONE (13:32)
[2019-06-07] MEDS ORDERED: VANCOMYCIN HCL 1000MG/20ML VIAL ONE (13:53)
[2019-06-07] MEDS ORDERED: GENTAMICIN SULFATE 40 MG/ML 2 ML VIAL ONE (13:53)
[2019-06-07] MEDS ORDERED: PROPOFOL IV EMULSION 10 MG/ML 20 ML VIAL IV ONE ×2 (14:19)
[2019-06-07] MEDS ORDERED: ROCURONIUM BROMIDE 10 MG/ML 5 ML VIAL ONE (14:19)
[2019-06-07] MEDS ORDERED: CLINDAMYCIN PHOS 300 MG/2 ML VIAL ONE (14:19)
[2019-06-07] MEDS ORDERED: LIDOCAINE HCL 2% 2 ML VIAL/AMP(20MG/ML) INFIL ONE (14:19)
[2019-06-07] MEDS ORDERED: SUCCINYLCHOLINE CHLORIDE 20 MG/ML 10 ML VIAL ONE (14:19)
[2019-06-07] MEDS ORDERED: ePHEDrine sulfate 50 MG/ML SYR ONE (14:20)
[2019-06-07] MEDS ORDERED: ONDANSETRON INJ 2 MG/ML 2 ML VIAL ONE (14:50)
[2019-06-07] MEDS ORDERED: GLYCOPYRROLATE 0.2 MG/ML VIAL ONE (15:14)
[2019-06-07] MEDS ORDERED: DEXAMETHASONE SOD INJ 4 MG/ML VIAL ONE (15:14)
[2019-06-07] MEDS ORDERED: NEOSTIGMINE METHYLSULFATE 1 MG/ML 10ML VIAL ONE (15:14)
--- NOTE | 2019-06-07 15:23 | Operative Report ---
Post Operative Report Pre & Post Diagnosis Operation Date: 06/07/19 13:00 Pre-Op Diagnosis: Severe Spinal Stenosis with Urinary retention Post-Op Diagnosis: Severe Spinal Stenosis with Urinary retention I identified the patient and participated in the time-out.: Yes Procedure Operation Date: 06/07/19 13:00 Actual Procedures #1 lumbar decompression with bilateral medial facetectomies L2-3 L3-4. Surgeon German Aguilar, DO Periodontal Assistant None Estimated Blood Loss 50 Findings Consistent with Post-Op Diagnosis Specimens None Indications This is a 28-year-old male who presents with worsening back and bilateral leg pain with an episode of urinary retention. Subsequently elected to undergo decompression L2-3 L3-4. We had considered a fusion but in light of his uncontrolled diabetes and health history we elected to undergo's decompression only provide immediate relief of compression. Description of Procedure Patient was met with identified informed consent obtained. Patient was then taken to the operative suite underwent an patient placed in prone position Yoav table on top Conner frame. All bony prominences well-padded eyes inspected to ensure no external pressure placed upon the peer at this point the lumbar spine was prepped and draped in normal sterile fashion. Sharp dissection with the assistance pericardial form down to and exposing the lamina of L 2 L3 in the interlaminar spaces. From a caudal cephalad fashion complete laminectomy of L3 partial laminectomy of L2 was performed including bilateral medial facetectomies to address severe stenosis. After decompression the incision was copiously irrigated approximately 3 cc of stimulant beads impregnated with vancomycin and gentamicin sprinkled throughout the incision. A 10 round PIOTR drain was then inserted. The incision was then closed with 1 Vicryl the fascia 2-0 Vicryl subcutaneously and 4 Monocryl for final skin closure. Steri-Strip sterile dressings placed. Patient will continue PACU stable condition. I attest to the content of the Intraoperative Record and any orders documented therein. Any exceptions are noted below.
--- NOTE | 2019-06-07 15:27 | Fluoroscopy Report ---
FL spine 1V any level CLINICAL HISTORY: L2-L4 Decompression and Fusion COMPARISON STUDY: Lumbar spine MRI June 06, 2019. FLUOROSCOPY TIME: 11.1. FLUOROSCOPIC IMAGES: 1 FINDINGS: Surgical retractors are noted. Surgical instrument is directed over the posterior elements at the L2-L3 level. IMPRESSION: Intraoperative localization, as described above ACT 112: Negative or not required by law. Electronically signed by: Orville Johnson M.D. 06/07/2019 3:26 PM
[2019-06-07] MEDS: ONDANSETRON INJ 2 MG/ML 2 ML VIAL IV PRN (15:45)
[2019-06-07] MEDS ORDERED: PROMETHAZINE HCL 12.5 MG in SODIUM CHLORIDE 0.9% 50 ML IV STA (15:49)
[2019-06-07] MEDS ORDERED: ONDANSETRON INJ 2 MG/ML 2 ML VIAL IV STA (16:01)
--- NOTE | 2019-06-07 16:10 | Anesthesiology Progress Note ---
Date of Service June 07, 2019 Anesthesia Post Procedure Vital Signs Vital Signs: Temp Pulse Pulse Resp BP Pulse Ox 06/07/19 16:00 68 18 135/54 L 98 06/07/19 15:50 70 18 150/57 H 98 06/07/19 15:43 36.1 C L 78 18 155/68 H 97 06/07/19 12:23 37.1 C 74 16 160/95 H 97 06/07/19 07:08 36.5 C 60 18 152/93 H 95 06/06/19 23:05 36.8 C 62 16 149/79 H 97 Pain Intensity Lower Back: Pain Intensity: 8 Transfer of Care Handoff Completed per policy Notes Mental Status: alert / awake / arousable and participated in evaluation Patient Amnestic to Procedure: Yes Nausea / Vomiting: adequately controlled Pain: adequately controlled Airway Patency, RR, SpO2: stable & adequate BP & HR: stable & adequate Hydration State: stable & adequate Anesthetic Complications: no major complications apparent and Pt Satisfied with anesthetic care
[2019-06-07] MEDS ORDERED: MAGNESIUM HYDROXIDE SUSP 30 ML UDC PO PRN (16:33)
[2019-06-07] MEDS ORDERED: KETOROLAC 30 MG/ML VIAL IV PRN (16:33)
[2019-06-07] MEDS ORDERED: ONDANSETRON INJ 2 MG/ML 2 ML VIAL IV PRN (16:33)
[2019-06-07] MEDS ORDERED: OXYCODONE HCL IR 5 MG TAB (IMMEDIATE RELEASE) PO PRN (16:33)
[2019-06-07] MEDS ORDERED: ACETAMINOPHEN 325 MG TAB PO PRN (16:33)
[2019-06-07] MEDS ORDERED: DO NOT ADMINISTER PNEUMOCOCCAL VACCINE PRN (16:33)
[2019-06-07] MEDS ORDERED: DO NOT ADMINISTER FLU VACCINE PRN (16:33)
[2019-06-07] MEDS ORDERED: ACETAMINOPHEN 500 MG TAB PO PRN (16:33)
[2019-06-07] MEDS ORDERED: HYDROmorphone INJ 1 MG/ML SYRINGE IV PRN (16:33)
[2019-06-07] MEDS: SODIUM CHLORIDE 0.9% 1000ML 1,000 ML IV SCH (17:13)
[2019-06-07] MEDS: HYDROmorphone INJ 0.5 MG/0.5 ML SYR IV PRN (18:42)
[2019-06-07] MEDS: OXYCODONE HCL IR 5 MG TAB (IMMEDIATE RELEASE) PO PRN (20:34)
[2019-06-07] MEDS: CLINDAMYCIN 600 MG in DEXTROSE 5% 50 ML IV SCH (20:43)
[2019-06-07] MEDS ORDERED: DOCUSATE SODIUM 100 MG CAP PO SCH (21:00)
[2019-06-08] MEDS: OXYCODONE HCL IR 5 MG TAB (IMMEDIATE RELEASE) PO PRN ×4 (01:02→23:26)
[2019-06-08] MEDS: ONDANSETRON INJ 2 MG/ML 2 ML VIAL IV PRN (01:08)
[2019-06-08] MEDS: HYDROmorphone INJ 1 MG/ML SYRINGE IV PRN ×5 (01:59→16:31)
[2019-06-08] MEDS: SODIUM CHLORIDE 0.9% 1000ML 1,000 ML IV SCH (05:59)
[2019-06-08] MEDS: CLINDAMYCIN 600 MG in DEXTROSE 5% 50 ML IV SCH ×2 (06:00→12:21)
[2019-06-08] MEDS ORDERED: CLINDAMYCIN 600 MG/54 ML BAG IV SCH (06:00)
--- NOTE | 2019-06-08 07:40 | Anesthesiology Progress Note ---
Date of Service June 08, 2019 Anesthesia Post Procedure Vital Signs Vital Signs: Temp Pulse Pulse Resp BP Pulse Ox 06/08/19 07:02 37 C 96 H 19 125/71 93 06/08/19 03:20 36.9 C 90 16 142/79 H 91 06/07/19 23:18 36.7 C 106 H 16 151/80 H 92 06/07/19 19:28 36.5 C 88 18 143/79 H 92 06/07/19 18:29 36.9 C 95 H 18 153/86 H 97 06/07/19 17:39 36.7 C 69 16 138/79 95 06/07/19 17:04 36.9 C 72 16 135/78 96 06/07/19 16:30 36.9 C 67 18 120/73 97 06/07/19 16:10 36.4 C L 67 18 121/45 L 98 06/07/19 16:00 68 18 135/54 L 98 06/07/19 15:50 70 18 150/57 H 98 06/07/19 15:43 36.1 C L 78 18 155/68 H 97 06/07/19 12:23 37.1 C 74 16 160/95 H 97 Pain Intensity Lower Back: Pain Intensity: 10 Notes Mental Status: alert / awake / arousable and participated in evaluation Patient Amnestic to Procedure: Yes Nausea / Vomiting: adequately controlled Pain: adequately controlled Airway Patency, RR, SpO2: stable & adequate BP & HR: stable & adequate Hydration State: stable & adequate Anesthetic Complications: no major complications apparent and Pt Satisfied with anesthetic care
[2019-06-08] MEDS: INSULIN ASPART 100 UNITS/ML 3 ML PEN SC SCH ×4 (08:29→20:54)
[2019-06-08] MEDS: DOCUSATE SODIUM 100 MG CAP PO SCH ×2 (08:30→20:54)
[2019-06-08] MEDS: ATORVASTATIN 40 MG TAB PO SCH (08:30)
[2019-06-08] MEDS: gemfibroziL 600 MG TAB PO SCH (08:30)
[2019-06-08] MEDS: FENOFIBRATE NANOCRYSTALLIZED 145 MG TABLET PO SCH (08:31)
[2019-06-08] MEDS: LISINOPRIL/HCTZ 20/25MG 1 TAB PO SCH (08:31)
[2019-06-08] MEDS: NICOTINE 21 MG/24 HR TDSY TD SCH (08:31)
--- NOTE | 2019-06-08 13:30 | Cardiology Progress Note ---
Date of Service June 08, 2019 Assessment & Plan (1) Neurogenic claudication due to lumbar spinal stenosis: Postoperative day 1, status post lumbar decompression with bilateral medial facetectomies , L2-3 , L3-4 on 06/07/2019. (2) Hyperlipidemia: Total cholesterol 253, triglyceride level 950, LDL, direct, 87 mg/dL, HDL 35 mg/dL. As outpatient patient is on atorvastatin 80 mg daily, gemfibrozil 600 mg p.o. twice daily, fenofibrate 145 mg daily. It is noted that the patient is on both gemfibrozil and fenofibrate as an outpatient. Typically 1 or the other of these agents is utilized, rather than both in combination-however it sounds like this regimen has done well for him. Fenofibrate is typically the preferred agent to be utilized with the addition of a statin because of less risk of inducing muscle toxicity with statin. Patient states he does not drink alcohol with exception of a few times per year. Regular aerobic exercise, and judicious limitation of carbohydrates is recommended. His blood sugars are certainly high here in the hospital. And I have obtained a hemoglobin A1c. Future considerations include the addition of icosapent ethyl (Vascepa) can be considered, however, this medication may prove to be to expensive. (3) RBBB (right bundle branch block): Perhaps related to underlying hypertension. Not typically a marker of underlying coronary heart disease (4) Family history of premature CAD: Optimize risk factors as noted above (5) History of pancreatitis: As noted, need to do our best to reduce his triglycerides hopefully down to a level of less than 250 in the half-way. Subjective Patient feeling well. His spouse and young son are at the bedside with him. He states his postoperative pain is reasonably well controlled. He denies any chest discomfort or shortness of breath. Tolerated lumbar decompressive surgery yesterday. Physical Exam Physical Exam: Temp Pulse Resp BP Pulse Ox 37 C 96 H 19 125/71 93 06/08/19 07:02 06/08/19 07:02 06/08/19 07:02 06/08/19 07:02 06/08/19 07:02 Constitutional: WD/WN, vitals as above Respiratory: normal respiratory effort, lungs clear to auscultation Cardiovascular: RRR, no murmur, no edema Gastrointestinal (Abdomen): normal bowel sounds, soft, nontender, no hepatosplenomegaly Neurologic: PERRL, EOMI, accommodation nl, no face palsy, no dysarthria Results & Data Vital Signs (Past 12 Hours) Vital Signs Temp Pulse Resp BP Pulse Ox 06/08/19 07:02 37 C 96 H 19 125/71 93 06/08/19 03:20 36.9 C 90 16 142/79 H 91 Laboratory Results Intake and Output 06/07/19 06/08/19 06/08/19 22:59 06:59 14:59 Intake Total 2797.0 / 3544.333 747.333 / 3544.333 674 / 674 Output Total 2186 / 4236 1325 / 4236 750 / 750 Balance 611.0 / -691.667 -577.667 / -691.667 -76 / -76 Intake: IV 1257.0 / 2003.333 747.333 / 2004.333 554 / 554 Cleocin 600 mg In D5w 50 ml @ 54 / 108 54 / 108 54 / 54 100 mls/hr IV Q8H FABIO Rx#: [id number] Lr 1,000 ml @ 75 mls/hr IV . 872.5 / 872.5 [id number] FABIO Rx#:[id number] Phenergan 12.5 mg In Nss 50 ml 50.5 / 50.5 @ 202 mls/hr IV NOW STA Rx#: [id number] Nss 1000ML 1,000 ml @ 80 mls/hr 280 / 973.333 693.333 / 973.333 500 / 500 IV .[id number] FABIO Rx#:[id number] IV Perioperative 1300 / 1300 Oral 240 / 240 120 / 120 Output: Urine 750 / 750 Estimated Blood Loss 50 / 50 Urine Amount (Catheter) 1974 1250 / 3225 [place]/Indwelling 1974 1250 / 3225 Drain Output 160 / 235 75 / 235 Right Back PIOTR 160 / 235 75 / 235 # Bowel Movements
--- NOTE | 2019-06-08 13:42 | Orthopedic Progress Note ---
Date of Service June 08, 2019 Assessment & Plan (1) Neurogenic claudication due to lumbar spinal stenosis: Patient is good strength testing appears comfortable. This time we anticipate discharge home tomorrow. Present on Admission?: Yes Admission and Anticipated Discharge Date Admission Date: June 06, 2019 Subjective Back and leg pain markedly improved. Physical Exam Physical Exam: Patient has good strength testing. Results & Data ([facility]) Vital Signs (Past 12 Hours) Vital Signs Temp Pulse Resp BP Pulse Ox 06/08/19 07:02 37 C 96 H 19 125/71 93 06/08/19 03:20 36.9 C 90 16 142/79 H 91
[2019-06-08 15:28] LABS: Hematocrit (blood only) 45.9 % (42-52); Hemoglobin 16.4 g/dL (14.0-18.0); Mean Corpuscular Hemoglobin 31.2 pg (25-34); Mean Corpuscular Hgb Conc 35.7 g/dL (32-36); Mean Corpuscular Volume 87.4 fL (80-100); Mean Platelet Volume 10.7 fL (7.4-10.4); Platelet Count 142 K/uL (130-400); RDW Coefficient of Variation 13.1 % (11.5-14.5); RDW Standard Deviation 41.9 fL (36.4-46.3); Red Blood Count 5.25 M/uL (4.7-6.1); White Blood Count 15.22 K/uL (4.8-10.8)
[2019-06-08 15:46] LABS: BUN Creatinine Ratio 20.7 (10-20); Calcium 9.1 mg/dl (8.5-10.1); Creatinine Clr Calc Pharmacy 141.7 ml/min; Est GFR (African American) 114.3; Est GFR (Non-African American) 98.6
[2019-06-08] MEDS ORDERED: LACTATED RINGER'S 1,000 ML IV SCH (18:00)
[2019-06-08] MEDS: HYDROmorphone INJ 0.5 MG/0.5 ML SYR IV PRN (20:52)
--- NOTE | 2019-06-08 22:58 | Hospitalist Progress Note ---
Date of Service June 08, 2019 Assessment & Plan (1) Neurogenic claudication due to lumbar spinal stenosis: S/P lumbar decompression with bilateral medial facetectomies L2-3 L3-4 DVT prophylaxis: per primary team (2) Hyperlipidemia: continue home meds Lab called surgeon to report that TG were so high that BMP could not be calculated This is likely the cause for pt's chronic pancreatitis Was noted to be 728 in 2018 and other labs were able to be run at that time Will defer further outpatient management to PCP.. (3) Type 2 diabetes mellitus: SSI PRN A1c 05/2019 11 with PCP Will defer outpatient management to PCP (4) Hypertension: continue home meds (5) Tobacco use disorder: Nicotine patch Gave info for PA QUIT LINE (6) History of pancreatitis: Pt is currently pain free but states he has intermittent pain daily at baseline (7) DVT prophylaxis: As per ortho Thank you for allowing us on the case. Medicine will sign off. Admission and Anticipated Discharge Date Admission Date: June 06, 2019 Subjective Patient reports his pain has improved. Patient has no new complaints. He states he has been having normal bowel movements, denies nausea and vomiting. Review of Systems Review of Systems: All systems reviewed & are unremarkable except as noted in HPI & below Physical Exam Physical Exam: Constitutional: WD/WN, vitals as above Eyes: normal visual sesay by confrontation and + anicteric sclerae Neck: normal visual inspection and trachea midline Respiratory: normal respiratory effort, lungs clear to auscultation Cardiovascular: Rate/Rhythm: regular rate and regular rhythm Gastrointestinal (Abdomen): Inspection/Auscultation: abdomen not distended Percussion/Palpation: abdomen soft; abdomen nontender Musculoskeletal: Head/Neck/Chest: normocephalic and head atraumatic negative for edema, peripheral pulses intact Skin: no rashes, warm and dry Neurologic: awake; not confused Speech / Cognition: normal speech Psychiatric: A+Ox3, euthymic affect Results & Data ([facility]) Vital Signs (Past 12 Hours) Vital Signs Temp Pulse Resp BP Pulse Ox 06/08/19 15:18 36.6 C 82 18 146/73 H 92 PG Care Time/CCT Total # of Minutes Spent Total Time Spent with Patient: Total time spent is greater than 50% in coordination of care (as documented) at patient's floor/unit and/or counseling patient: Coding Level of Care Code 68579 Subseq Hosp Care Lvl 2 Diagnoses Neurogenic claudication due to lumbar spinal stenosis M48.062 Hyperlipidemia E78.5 Type 2 diabetes mellitus E11.9 Hypertension I10 Tobacco use disorder F17.200 History of pancreatitis Z87.19 DVT prophylaxis Z29.9 Time Spent (min) 28
[2019-06-09] MEDS: OXYCODONE HCL IR 5 MG TAB (IMMEDIATE RELEASE) PO PRN (06:28)
[2019-06-09] MEDS: DOCUSATE SODIUM 100 MG CAP PO SCH (08:24)
[2019-06-09] MEDS: FENOFIBRATE NANOCRYSTALLIZED 145 MG TABLET PO SCH (08:24)
[2019-06-09] MEDS: HYDROmorphone INJ 0.5 MG/0.5 ML SYR IV PRN (08:24)
[2019-06-09] MEDS: ATORVASTATIN 40 MG TAB PO SCH (08:24)
[2019-06-09] MEDS: NICOTINE 21 MG/24 HR TDSY TD SCH (08:24)
[2019-06-09] MEDS: LISINOPRIL/HCTZ 20/25MG 1 TAB PO SCH (08:24)
[2019-06-09] MEDS: INSULIN ASPART 100 UNITS/ML 3 ML PEN SC SCH (09:10)
[2019-06-09] MEDS ORDERED: KETOROLAC 30 MG/ML VIAL IV ONE (09:56)
--- NOTE | 2019-06-09 11:10 | Discharge Summary ---
Date of Service June 09, 2019 Admission HPI Per Admitting Provider This is a 28-year-old male that is had 2 months of persistent back pain and numbness to the lower extremities. He states is progressive and now has not gone away for the past few days. Describes difficulty urinating and numbness in the perineal area with urination. 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 His symptoms do involve the back bilateral buttock and lower extremities. He is markedly limited with any prolonged standing and walking. Principal Diagnosis Lumbar spinal stenosis with neurogenic claudication Discharge Data Allergies Allergy/AdvReac Type Severity Reaction Status Date / Time cefuroxime Allergy Severe throat Verified 06/06/19 08:50 swells morphine Allergy Severe "THROAT Verified 06/06/19 08:50 SWELLS" Penicillins Allergy Severe throat Verified 06/06/19 08:50 swells Sulfa (Sulfonamide Allergy Severe throat Verified 06/06/19 08:50 Antibiotics) swells Consultations 06/06/19 13:41 ED Decision to Admit Stat 06/06/19 14:59 Consult Anesthesiology Routine Consult Internal Medicine Routine 06/07/19 08:16 Consult Cardiology Routine Procedures Performed Operation Date: 06/07/19 13:00 Actual Procedures p L2-L4 Decompression(Not Applicable) - German Aguilar DO Ordered Studies 06/06/19 08:37 MR lumbar spine wo con Stat 06/07/19 07:00 FL fluoroscopy <1hr Routine FL spine 1V any level Routine Hospital Course (1) Neurogenic claudication due to lumbar spinal stenosis: Patient was admitted from the emergency room with significant back and bilateral leg pain. After medical clearance he underwent lumbar decompression the following day. He tolerated this well and on postop day 1 leg symptoms are markedly improved. On postop day #2 he was continued to progress. PIOTR drain decreasing appropriately. Pain controlled. Neurologically intact. Subsequently discharged home. Discharge orders instructions from the chart for further review. Total Time Total Time Spent Total Time Spent (In Minutes): 20 minutes Discharge Plan Discharge Items Patient Disposition: Home - Self-Care Reason For Visit: SEVERE SPINAL STENOSIS WITH URINARY RETENTION Discharge Diagnosis: Lumbar spinal stenosis with neurogenic claudication Activity: As commented below Non-emergency contact: Primary Care Provider Call non-emergency contact if: you have any medication questions Follow-up/Referrals: Uri Guzman [Primary Care Provider] - 06/15/19 12:30 pm Diet: Regular Addtl Attending Provider Instructions: ACTIVITY RECOMMENDATIONS: SELF CARE INSTRUCTIONS AFTER A LAMINECTOMY 1. No prolonged sitting (less than 30 minutes for the first 3 weeks after surgery). 2. No bending, lifting more than 5 pounds, or twisting (roll like a log when turning in bed). 3. You may shower 3 days after surgery if no drainage from wound. Thoroughly dry wound. Do not soak in the tub. 4. Please walk as much as you can for exercise. Gradually increase the distance that you walk as your endurance increases. 5. You may drive in 7-10 days if you are comfortable and no longer requiring pain medications. SPECIAL CARE INSTRUCTIONS: VERY IMPORTANT TO READ AND REVIEW A. Your surgical incision has been closed with a cosmetic suture under the skin that will dissolve in about 6 weeks. In 14 days, you can use a pair of clean scissors and cut the suture that is left outside of the skin at the ends of your incision. B. Complications are uncommon, but please contact us if you have any signs or symptoms of: 1. wound infection (fever higher than 102.5 degrees F, redness, separation of wound, drainage, or increasing pain from the incision) 2. blood clots in legs (pain, swelling, redness and warmth in legs) 3. urinary tract infection (fever higher than 102.5 degrees, burning upon urination or increased frequency of urination) 4. nerve problems (inability to walk on your toes or heels, numbness, loss of bowel or bladder control) 5. any other symptoms that concern you. C. Please call the office at if you have any concerns or questions about your operation or recovery. MANAGING PAIN AFTER SPINAL SURGERY 1. Narcotic medication is intended for short-term use and will be provided for surgical pain. Surgical pain usually lasts for a period of 4-6 weeks. Narcotic medication includes Percocet, Vicodin, Darvocet, Tylenol #3 or Lortab. 2. Longer-term pain is more appropriately treated with non-narcotic medication such as Tylenol ES. 3. Muscle spasm is not appropriately treated with narcotics. Muscle relaxers such as Soma, Flexeril or Skelaxin can be used along with Tylenol ES. 4. Remember that we all live with some "aches and pains". This is not unusual or uncommon after an injury or as we get older. 5. We will provide appropriate medication within the normal guidelines of their prescribed use. We will also be very cautious and aware of potential abuse and extended duration of patients' medication needs. 6. Please allow 2-3 days to process refills. Prescriptions will not be mailed but must be picked up at the office. FOLLOW UP VISIT: Keep your scheduled follow-up appointment. Any questions, please call the office at . Pending Studies at Discharge: No Stand-Alone Forms: My [facility] Utility Scale Solar, Smoking Cessation Medications and DC Order Prescriptions: New tramadol 50 mg tablet 50 mg PO Q6H PRN (Reason: pain, moderate) Qty: 30 RF: 0 oxycodone 5 mg tablet 5 mg PO Q6H PRN (Reason: pain, severe) Qty: 30 RF: 0 Continued atorvastatin 80 mg tablet 80 mg PO HS RF: 0 gemfibrozil 600 mg tablet 600 mg PO BID RF: 0 metformin 1,000 mg tablet 1,000 mg PO BID RF: 0 lisinopril-hydrochlorothiazide 20-25 mg tablet 1 tab PO DAILY RF: 0 fenofibrate 150 mg capsule 145 mg PO DAILY RF: 0 Lantus U-100 Insulin 100 units SC HS RF: 0 Discharge Orders: Discharge Order (Routine); Ordered 06/09/19 Ordered By: German Aguilar Admission Data Admit Date/Time: 06/06/19 13:55 Attending Provider: German Aguilar Admit Provider: German Aguilar Primary Care Provider: Uri Guzman Other Providers: Dimitrios Adhikari ; German Aguilar ; Mesfin Mehta ; Carlotta Robb ; Reed Solorzano Other Interventions: Discharge Summary Assessment (RN) Last Done: 06/09/19 10:40
== END 2019-06-09 11:37 | disposition home or self-care (01) | DRG 517 ==
LOC: ED 08:14 → 3N 13:55

== ENCOUNTER 2023-05-22 10:37 | Inpatient (IN) ==
--- NOTE | 2023-01-12 15:28 | PAT Medication Instructions ---
Medication Instructions Date of Service January 12, 2023 Home Medications atorvastatin 80 mg tablet 80 mg PO QAM metformin 1,000 mg tablet 1,000 mg PO BID albuterol sulfate 90 mcg/actuation aerosol inhaler 2 puff inhalation DAILY PRN Other cyclobenzaprine 10 mg tablet 10 mg PO Q8H PRN Pain dulaglutide 4.5 mg/0.5 mL subcutaneous pen injector (Trulicity) 4.5 mg subcut WK fenofibrate nanocrystallized 145 mg tablet 145 mg PO QAM Medication Instructions: Continue as directed albuterol sulfate 90 mcg/actuation aerosol inhaler 2 puff inhalation DAILY PRN Other (use if needed; bring to hospital day of surgery) STOP taking 24 hours before surgery fenofibrate nanocrystallized 145 mg tablet 145 mg PO QAM DO NOT take the morning of surgery metformin 1,000 mg tablet 1,000 mg PO BID cyclobenzaprine 10 mg tablet 10 mg PO Q8H PRN Pain Take morning of surgery With a small sip of water, OTHERWISE NOTHING TO EAT OR DRINK AFTER MIDNIGHT: atorvastatin 80 mg tablet 80 mg PO QAM Take evening before surgery metformin 1,000 mg tablet 1,000 mg PO BID cyclobenzaprine 10 mg tablet 10 mg PO Q8H PRN Pain (if needed) Other Notes HOLD 7 days proor to surgery dulaglutide 4.5 mg/0.5 mL subcutaneous pen injector (Trulicity) 4.5 mg subcut WK If you have any questions please call us at [phone] or [phone] or [phone] or [phone]
--- NOTE | 2023-01-19 12:15 | Anesthesiology Consultation ---
Date of Service January 19, 2023 Assessment & Plan (1) Encounter for pre-operative examination: Chart Review Chart Review: Patient seen in Pre Admission Testing - Per surgeon's office- patient is being cancelled due to elevated Hgb A1C; Please still send preop testing to PCP for continuity of care - Awaiting confirmed EKG - Scheduled PCP clearance 01/21/23 (please send preop testing to PCP for cont inuity of care even though surgery is being postponed) (Dr. Aristeo Babcock) - Check BSG AM DOS - Trulicity instructions: Patient takes on Thursday. Patient informed at PAT visit to stop 7 days prior to surgery- voiced understanding. Patient advised to check with prescriber to see if alternative diabetic management changes recommended while holding Trulicity- if so, patient to call back to PAT to up date chart and discuss if any further preop medication instructions needed. Pt's last dose of Trulicity was to be 01/20/23 - pt instructed not to stop Trulicity since surgery getting postponed and to follow up with PCP re: uncontrolled DM Per PAT appt on 01/14/23, no recent illness/disease exposures, illness related symptoms, or recent illness/disease positive tests. Will leave to surgeon's discretion if preop Covid testing needed Decompression L2-3, L3-4 on 06/07/19= Done under [place] with Glidescope #4. ETT #8.0. Did have post op vomiting per anesthesia record Teaching & Discussion Pre-Anesthesia Teaching/Discussion Notes: Instructed NPO after midnight before surgery,except medications with 15 cc of water. Medication instructions provided according to the PAT guidelines. History Surgery Operation Date: 02/02/23 07:45 Proposed Procedures p L2-L5 Revison Decompression and Fusion, Spinal Cord Monitoring - German Aguilar DO Height/Weight Height: 5 ft 11 in Weight: 113.2 kg Allergies Allergy/AdvReac Type Severity Reaction Status Date / Time cefuroxime Allergy Severe throat Verified 01/12/23 07:40 swells morphine Allergy Severe "THROAT Verified 01/12/23 07:40 SWELLS" Penicillins Allergy Severe throat Verified 01/12/23 07:40 swells Sulfa (Sulfonamide Allergy Severe throat Verified 01/12/23 07:40 Antibiotics) swells Medications Home Medications Medication Instructions Recorded Confirmed Last Taken atorvastatin 80 mg tablet 80 mg PO QAM 06/06/19 01/12/23 09/05/20 metformin 1,000 mg tablet 1,000 mg PO BID 06/06/19 01/12/23 09/06/20 albuterol sulfate 90 mcg/actuation 2 puff inhalation DAILY PRN Other 11/28/22 01/12/23 Unknown aerosol inhaler cyclobenzaprine 10 mg tablet 10 mg PO Q8H PRN Pain 11/28/22 01/12/23 Unknown dulaglutide 4.5 mg/0.5 mL 4.5 mg subcut WK 11/28/22 01/12/23 Unknown subcutaneous pen injector (Trulicity) fenofibrate nanocrystallized 145 145 mg PO QAM 01/12/23 01/12/23 Unknown mg tablet methylprednisolone 4 mg tablet 4 mg PO UD 01/12/23 01/12/23 Unknown Past Medical History Medical History Asthma has not used rescue inhaler" for a long time" well controlled History of kidney stones no surgery required (years ago) no recent issues History of pancreatitis 2019 hospitalized at [facility]- no recent issues Hx of migraines Hyperlipidemia Seasonal allergies Stable Type 2 diabetes mellitus Glucose elevated due to steroid use Exercise / Class Metabolic Activity II 4-5 Yardwork/Stairs/Walk up hill (one flight of stairs - no chest pain or SOB - increased back pain ) Past Family History Family History Father Coronary heart disease [place] at age 32 Past Surgical History Surgical History Family history of reaction to anesthesia mother>slow to wake up Fusion of spine lumbar H/O arthroscopic knee surgery x2 *right History of colonoscopy History of esophagogastroduodenoscopy (EGD) History of myringotomy "multiple sets" History of tonsillectomy and adenoidectomy S/P appendectomy S/P cholecystectomy Past Anesthesia History No Hx of Anesthesia Complications and No Family Hx of Anesthesia Complications (with exception to mother - just groggy - no reintubation or ICU stay ) History of PONV No Hx of PONV and No Hx of Motion Sickness Social History Smoking Status: Former smoker tobacco type: cigarettes and smokeless tobacco Do You Dip or Chew Tobacco: Yes (advised- 1 can/2 days ) Smoking End Date: 2020 Hx Alcohol Use: Yes Alcohol type: beer alcohol intake frequency: a few times a month Hx Substance Use: No substance use type: does not use Review of Systems - Occ reflux - diet dependent- mild - no medications needed - Hx of snoring - no witnessed apnea- no hx of sleep study Patient denies chest pain, shortness of breath, dyspnea on exertion, cough, wheezing, palpitations. No hx of seizures, stroke, PA. No hx of blood clots or blood transfusions Physical Exam Vital Signs VITALS BP 141/97 P 92 TEMP 98.3 SP02 97% RESP 16 Constitutional no acute distress ENMT Mouth: no TMJ clicking Thyromental Distance: < 3.5 Finger Breadths (3.0) Mallampati Class: I Neck neck extension not limited Respiratory normal respiratory effort; no respiratory distress Auscultation: lungs clear to auscultation bilaterally; no wheezes Cardiovascular Rate/Rhythm: regular rate and regular rhythm Heart Sounds: no murmur Vessels: no carotid bruit Musculoskeletal Spine: no pain with cervical ROM Extremities: extremities normal to inspection Psychiatric Orientation: alert Lab Results Anesthesia Preop Results Results Anesthesia Widget: WBC 9.59 K/ul (4.8-10.8) 01/19/23 Hgb 17.1 g/dl (14.0-18.0) 01/19/23 Hct 47.6 % (42.0-52.0) 01/19/23 Plt 154 K/uL (130-400) 01/19/23 Na 137 mmol/L (136-145) 01/19/23 K 3.5 mmol/L (3.5-5.1) 01/19/23 Cl 101 mmol/L (98-107) 01/19/23 CO2 28 mmol/L (21-32) 01/19/23 BUN 10 mg/dl (6-23) 01/19/23 Creat 0.88 mg/dl (0.6-1.4) 01/19/23 Glucose Level 185 mg/dl (70-99(Fasting)) H 01/19/23 PT 10.8 Seconds (9.0-12.0) 01/19/23 PTT 25.2 Seconds (21.0-31.0) 01/19/23 INR 1.0 (0.9-1.1) 01/19/23 TSH 0.961 uIu/ml (0.300-4.500) 11/28/22 HA1c 10.5 % (4.5-5.6) H 01/19/23 Urine Color Dark Yellow 01/19/23 Urine Appearance Clear (Clear) 01/19/23 Urine pH 5.5 (4.5-7.5) 01/19/23 Urine Specific [place] 1.023 (1.000-1.030) 01/19/23 Urine Protein 1+ (Negative) H 01/19/23 Urine Glucose (UA) 2+ (Negative) H 01/19/23 Urine Ketones Trace (Negative) H 01/19/23 Urine Blood Negative (Negative) 01/19/23 Urine Nitrite Negative (Negative) 01/19/23 Urine Bilirubin Negative (Negative) 01/19/23 Urine Urobilinogen Negative (Negative) 01/19/23 Urine Leukocyte Esterase Negative (Negative) 01/19/23 Urine WBC (Auto) 1-5 /hpf (0-5) 01/19/23 Urine RBC (Auto) 0-4 /hpf (0-4) 01/19/23 Urine Hyaline Casts (Auto) 0 /lpf (0-5) 01/19/23 Urine Epithelial Cells (Auto) 0-5 /lpf (0-5) 01/19/23 Urine Bacteria (Auto) Negative (Negative) 01/19/23 Blood Type A Positive 01/19/23 Antibody Screen NEGATIVE 01/19/23 Testing Laboratory Results Surgeon's office informed of Hgb A1C results - will leave to surgeon's discretion with how to proceed Electrocardiogram Date: 01/19/23 Findings: + NSR @ (75bpm ) RBBB When compared to EKG from September 06, 2020QRS shifted right per cardiology Chest X-Ray Date: 01/19/23 Findings: + NAD Echocardiogram Date: 06/07/19 EF: 55-60% LV Function: normal RWMA: + none Other Findings: + LVH (borderline/concentric ); no diastolic dysfunction Valvular Disease: + no significant valvular disease RV is normal in size and function Doppler findings do not suggest pulmonary hypertension
[~2023-05-22 10:37] MED LIST changes: +ACETAMINOPHEN 500 MG TAB PO SCH; -ASPI81TA28 PO; -ATOR-22 PO; +BUPIVACAINE/EPINEPHRINE 0.5% MPF 1:200,000 30 ML VIAL ONE; +CLINDAMYCIN/D5W 900 MG/50 ML BAG IV SCH; -CLR10 PO; +GABAPENTIN 900 MG DOSE PO SCH; -IBUP-1050 PO; -LISI-787 PO; +LR 15ML/HR IV SCH; +LR 60ML/HR IV SCH; -METF-384 PO; -METO-551 PO; -MONT1TAB3 PO; -TRAM-10 PO; -VNTHFA/IN INH; +ceFAZolin 330 MG/ML 1 GM VIAL ONE
[2023-05-22 11:31] LABS: Basophils # (auto) 0.08 K/uL (0.00-0.20); Basophils % (auto) 1.2 %; Eosinophils # (auto) 0.08 K/uL (0.00-0.50); Eosinophils % (auto) 1.2 %; Hematocrit (blood only) 49.7 % (42.0-52.0); Hemoglobin 17.3 g/dl (14.0-18.0); Immature Granulocytes # (auto) 0.02 K/uL (0.01-0.20); Immature Granulocytes % (auto) 0.3 %; Lymphocytes # (auto) 1.52 K/uL (1.20-3.40); Lymphocytes % (auto) 22.4 %; Mean Corpuscular Hemoglobin 29.7 pg (25.0-34.0); Mean Corpuscular Hgb Conc 34.8 g/dL (32.0-36.0); Mean Corpuscular Volume 85.4 fL (80.0-100.0); Mean Platelet Volume 10.8 fL (9.4-12.4); Monocytes # (auto) 0.96 K/uL (0.11-0.59); Monocytes % (auto) 14.1 %; Neutrophils # (auto) 4.13 K/uL (1.40-6.50); Neutrophils % (auto) 60.8 %; Platelet Count 166 K/uL (130-400); RDW Coefficient of Variation 12.5 % (11.5-14.5); RDW Standard Deviation 38.3 fL (36.4-46.3); Red Blood Count 5.82 M/uL (4.70-6.10); White Blood Count 6.79 K/ul (4.8-10.8)
[2023-05-22 11:41] LABS: BUN Creatinine Ratio 12.4 (10-20); Calcium 10.1 mg/dl (8.6-10.3); Creatinine Clr Calc Pharmacy 139.1 ml/min; Est GFR (African American) 120.9 ml/min; Est GFR (Non-African American) 104.3 ml/min; Potassium 3.9 mmol/L (3.5-5.1)
[2023-05-22] MEDS ORDERED: ePHEDrine sulfate 50 MG/ML AMP IV PRN (11:41)
[2023-05-22] MEDS ORDERED: ONDANSETRON INJ 2 MG/ML 2 ML VIAL IV PRN ×2 (11:41→19:11)
[2023-05-22] MEDS ORDERED: ATROPINE SULFATE 0.1 MG/ML 10ML SYR IV PRN (11:41)
[2023-05-22 11:52] LABS: Partial Thromboplastin Ratio 0.9; Partial Thromboplastin Time 26 Seconds (21-31); Prothrombin Time 11.4 Seconds (9.0-12.0)
[2023-05-22] MEDS ORDERED: MIDAZOLAM HCL 1 MG/ML 2ML VIAL ONE (12:25)
[2023-05-22] MEDS ORDERED: fentaNYL citrate PF 100 MCG/2 ML VIAL ONE ×2 (12:26→14:20)
[2023-05-22] MEDS ORDERED: PROPOFOL IV EMULSION 10 MG/ML 20 ML VIAL IV ONE (12:27)
--- NOTE | 2023-05-22 13:04 | History & Physical Bridge Note ---
Date of Service May 22, 2023 History & Physical Bridge Note I have examined the patient, reviewed the History & Physical and in the interval since the performance of the History & Physical I have noted the following changes of clinical significance: no changes noted
--- NOTE | 2023-05-22 13:05 | History & Physical Report ---
Date of Service May 22, 2023 Assessment & Plan (1) Extrusion of intervertebral disc: Plan: L2-L5 revision decompression and fusion History of Present Illness Chief Complaint: Back and bilateral leg pain Primary Care Provider: Aristeo Babcock MD This is a 32-year-old male presents with chronic persistent back and bilateral leg pain with failed course of nonoperative care is here for surgical invention. Allergies Allergy/AdvReac Type Severity Reaction Status Date / Time cefuroxime Allergy Severe throat Verified 05/22/23 11:10 swells morphine Allergy Severe "THROAT Verified 05/22/23 11:10 SWELLS" Penicillins Allergy Severe throat Verified 05/22/23 11:10 swells Sulfa (Sulfonamide Allergy Severe throat Verified 05/22/23 11:10 Antibiotics) swells Home Medications Medication Instructions Recorded Confirmed Type atorvastatin 80 mg tablet 80 mg PO QAM 06/06/19 05/22/23 History metformin 1,000 mg tablet 1,000 mg PO BID 06/06/19 05/22/23 History albuterol sulfate 90 mcg/actuation 2 puff inhalation DAILY PRN Other 11/28/22 05/22/23 History aerosol inhaler cyclobenzaprine 10 mg tablet 10 mg PO Q8H PRN Pain 11/28/22 05/22/23 History dulaglutide 4.5 mg/0.5 mL 4.5 mg subcut WK 11/28/22 05/22/23 History subcutaneous pen injector (Trulicity) fenofibrate nanocrystallized 145 145 mg PO QAM 01/12/23 05/22/23 History mg tablet duloxetine 60 mg capsule,delayed 60 mg PO QAM 04/03/23 05/22/23 History release Past Med/Surg History Medical History Seasonal allergies Stable History of kidney stones no surgery required (years ago) no recent issues Hx of migraines Hyperlipidemia Asthma has not used rescue inhaler" for a long time" well controlled RBBB (right bundle branch block) patient states he has been diagnosed with the RBBB in ~2018/2019. never had issues, does not follow with cardiology. had an echo done at [facility] in 2019 on his own due to a family history of cardiac issues and having the RBBB diagnosed. History of pancreatitis 2019 hospitalized at [facility]- no recent issues Type 2 diabetes mellitus Surgical History Family history of reaction to anesthesia mother>slow to wake up Fusion of spine lumbar History of esophagogastroduodenoscopy (EGD) History of colonoscopy History of myringotomy "multiple sets" History of tonsillectomy and adenoidectomy H/O arthroscopic knee surgery x2 *right S/P appendectomy S/P cholecystectomy Family History Father Coronary heart disease [place] at age 32 Social History Smoking Status: Former smoker Tobacco Type: Cigarettes, E-cigarettes / Vaping and Smokeless Tobacco (Dip or Chew) Smoking End Date: 2020; Second Hand Exposure: Yes (rare occas.); Do You Dip or Chew Tobacco: Yes (advised- 1 can/2 days (quit ~04/02/23)); Tobacco Cessation Education Requested by Patient: No Hx Alcohol Use: Yes Alcohol type: beer Alcohol Intake Frequency Comment: few times a year Hx Substance Use: No Preferred Language: Kyrgyz Communication Ability: Effective Hand Pattern Marker Required: No Beliefs That Will Affect Care: None Current Living Situation: Family Other Information That Helps Us Care for You: No Feels Safe at Home: Yes Safety Concerns: Feels Safe At This Time Assistive Devices: Contacts and Glasses Physical Exam Physical Exam: Patient is alert and oriented Heart regular rhythm Lungs clear Results & Data Results & Data Vital Signs (Past 12 Hours) Vital Signs Temp Pulse Resp BP Pulse Ox O2 Del Method 05/22/23 11:10 37.3 C 84 18 144/88 H 97 Room Air
[2023-05-22] MEDS ORDERED: DEXAMETHASONE SOD INJ 4 MG/ML VIAL ONE (14:25)
[2023-05-22] MEDS ORDERED: HYDROmorphone INJ 2 MG/ML SYR/VIAL ONE (14:26)
[2023-05-22] MEDS ORDERED: FLOSEAL HEMOSTATIC MATRIX 10ML TOP ONE (14:30)
[2023-05-22] MEDS ORDERED: ROCURONIUM BROMIDE 10 MG/ML 5 ML VIAL IV ONE (14:45)
[2023-05-22] MEDS ORDERED: ONDANSETRON INJ 2 MG/ML 2 ML VIAL ONE (16:00)
[2023-05-22] MEDS ORDERED: LIDOCAINE 2% 2 ML VIAL/AMP(20MG/ML) INFIL ONE (16:01)
[2023-05-22] MEDS ORDERED: NEOSTIGMINE METHYLSULFATE 1 MG/ML 10ML VIAL ONE (16:53)
[2023-05-22] MEDS ORDERED: GLYCOPYRROLATE 0.2 MG/ML VIAL ONE (16:53)
--- NOTE | 2023-05-22 17:05 | Operative Report ---
Post Operative Report Pre & Post Diagnosis Operation Date: 05/22/23 12:25 Pre-Op Diagnosis: Intervertebral Disc Disorders with Radiculopathy Post-Op Diagnosis: Intervertebral Disc Disorders with Radiculopathy I identified the patient and participated in the time-out.: Yes Procedure Operation Date: 05/22/23 12:25 Actual Procedures #1 revision decompression with bilateral medial facetectomies and foraminotomies L2-L3, L3-L4 L4-L5. #2 posterior spinal fusion L2-L5. #3 placed posterior instrumentation L2-L5. #4 interbody fusion L2-L3, L3-L4 and L4-L5. #5 placement spiral 14 x 26 mm at L3-4, 14 x 26 mm at L2-L3 and 15 x 26 mm at L4-L5 #6 placement locally harvested morselized autograft in the posterior gutters. #7 placement infuse collagen sponge, with Koros in the posterior gutters and Morpheus bone graft in the interbody spaces. Surgeon German Aguilar, DO Fourth Hand Aaron Magana Estimated Blood Loss 400 Findings See Below The patient is 5 foot 11 weighing over 107 kg with a BMI in excess of 33. Patient's body habitus did contribute to significant technical difficulty with positioning exposure and the procedure itself at least 50% increased operative time. Specimens 20 minutes Indications With above-mentioned diagnosis after failing course of nonoperative care is here for the above-mentioned procedure. This is a 32-year-old male who presents Description of Procedure Patient was met with identified informed consent obtained. Patient was then taken to the operative suite underwent patient placed in a prone position on the Oyav table top the Conner frame. All bony prominences well-padded eyes inspected to ensure no external pressure placed upon the. This point the lumbar spine was prepped and draped in a sterile fashion. Sharp dissection with assistance of Bovie cautery form down to exposing the remaining lamina and transverse processes of L2-L3 L4-5 bilaterally. Regardless of fashion revision complete laminectomy of L4 L3 and L2 was performed including bilateral male facetectomies and foraminotomies. This also included addressing the disc herniations at all levels creating marked compression of the traversing roots. Once he was complete decompressed and the disc herniations addressed pedicle screws were placed in L2-L3 L4-5 bilaterally with assistance of fluoroscopy in the process naty placed. By way of transforaminal approach on the right complete discectomy of L for L5 was performed endplates guarded to subcortical bleeding bone and a 15 x 26 mm Spira cage with Morpheus tapped in position. Then proceeded L4-L5 and again by way of transforaminal approach on the right complete discectomy performed endplates guarded to subcortical bleeding bone and a 14 x 26 mm Spira cage with Morpheus tapped and position. Lastly I approach to L to L3 and again by way of transforaminal approach and right complete discectomy performed endplates guarded to subcortical mean bone and again a 14 x 26 mm Spira cage filled with Morpheus bone graft tapped in position. The rods were then compressed locked in final position bilaterally. The transverse processes of L2-L3 L4-5 burred to subcortical bleeding bone. Infuse collagen sponge, with Koros and locally harvested morselized autograft was placed in the posterior gutters. 15 round PIOTR inserted. The incision was then closed with 1 Vicryl fascia 2-0 Vicryl subcutaneously and 4 Monocryl for final skin closure. Steri-Strips sterile dressings placed. Patient waken taken PACU stable condition. Please note spinal cord monitoring was utilized at the procedure no changes noted. I attest to the content of the Intraoperative Record and any orders documented therein. Any exceptions are noted below.
--- NOTE | 2023-05-22 17:17 | Fluoroscopy Report ---
FL lumbar spine 2-3V CLINICAL HISTORY: L2-L5 DECOMPRESSION AND FUSION COMPARISON STUDY: MRI lumbar spine 11/28/2022 FLUOROSCOPY TIME: 32.2 seconds FLUOROSCOPY IMAGES: 3 EXPOSURE DOSE: 24.69 mGy FINDINGS: Posterior interbody rods and screw fusion hardware with discectomy is noted at what is labe led the L2-L5 levels. The hardware appears intact. Small linear opaque structure noted posterior to t he L3-L4 disc space. IMPRESSION: Fluoroscopic assistance as above. ACT 112: Negative or not required by law. Electronically signed by: Ken Bass M.D. 05/22/2023 5:16 PM
[2023-05-22] MEDS: fentaNYL citrate PF 100 MCG/2 ML VIAL IV PRN ×4 (18:15→18:30)
--- NOTE | 2023-05-22 18:31 | Anesthesiology Progress Note ---
Date of Service May 22, 2023 Anesthesia Post Procedure Vital Signs Vital Signs: Temp Pulse Pulse Resp BP Pulse Ox O2 Del Method 05/22/23 18:25 77 16 156/93 H 94 Oxymask 05/22/23 18:15 78 15 144/84 H 100 Oxymask 05/22/23 18:05 71 12 137/75 100 Oxymask 05/22/23 17:55 73 12 144/80 H 100 Oxymask 05/22/23 17:45 68 14 133/77 100 Oxymask 05/22/23 17:37 36.4 C L 84 16 149/89 H 100 Oxymask 05/22/23 11:10 37.3 C 84 18 144/88 H 97 Room Air O2 Flow Rate 05/22/23 18:25 4 05/22/23 18:15 4 05/22/23 18:05 4 05/22/23 17:55 4 05/22/23 17:45 6 05/22/23 17:37 6 05/22/23 11:10 Pain Intensity Medial Back: Pain Intensity: 6 Transfer of Care Handoff Completed per policy Notes Mental Status: alert / awake / arousable and participated in evaluation Patient Amnestic to Procedure: Yes Nausea / Vomiting: adequately controlled Pain: adequately controlled Airway Patency, RR, SpO2: stable & adequate BP & HR: stable & adequate Hydration State: stable & adequate Anesthetic Complications: no major complications apparent and Pt Satisfied with anesthetic care
[2023-05-22] MEDS ORDERED: LORazepam 0.5 MG in SYRINGE 0.25 ML IV PRN (19:11)
[2023-05-22] MEDS ORDERED: diphenhydrAMINE Capsule 25 MG CAP PO PRN (19:11)
[2023-05-22] MEDS ORDERED: DO NOT ADMINISTER PNEUMOCOCCAL VACCINE PRN (19:11)
[2023-05-22] MEDS ORDERED: MAGNESIUM HYDROXIDE SUSP 30 ML UDC PO PRN (19:11)
[2023-05-22] MEDS ORDERED: METOCLOPRAMIDE HCL INJ 5 MG/ML 2 ML VIAL IV PRN (19:11)
[2023-05-22] MEDS ORDERED: ACETAMINOPHEN 1,000 MG/100 ML VIAL IV PRN (19:11)
[2023-05-22] MEDS ORDERED: ONDANSETRON 4 MG OD TAB PO PRN (19:11)
[2023-05-22] MEDS ORDERED: ACETAMINOPHEN 500 MG TAB PO PRN (19:11)
[2023-05-22] MEDS ORDERED: bisacodyL 10 MG SUPP PR PRN (19:11)
[2023-05-22] MEDS ORDERED: FAMOTIDINE 20 MG TAB PO PRN (19:11)
[2023-05-22] MEDS ORDERED: NALOXONE HCL 0.4 MG/1 ML VIAL/CARP IV PRN (19:11)
[2023-05-22] MEDS ORDERED: PHARMACY GLYCEMIC MGMT CONSULT PRN (19:11)
[2023-05-22] MEDS ORDERED: LORazepam 0.5 MG TAB PO PRN (19:11)
[2023-05-22] MEDS ORDERED: PROMETHAZINE HCL 12.5 MG in SODIUM CHLORIDE 0.9% 50 ML IV PRN (19:11)
[2023-05-22] MEDS ORDERED: DO NOT ADMINISTER FLU VACCINE PRN (19:11)
[2023-05-22] MEDS ORDERED: SOD PHOSPHATE/SOD BIPHOSPHATE ENEMA 132 ML BTL PR PRN (19:11)
[2023-05-22] MEDS ORDERED: hydrOXYzine HCl 25 MG TAB PO PRN (19:11)
[2023-05-22] MEDS ORDERED: ALUMINUM/MAGNESIUM SUSP 30 ML UDC PO PRN (19:11)
[2023-05-22] MEDS ORDERED: traMADol HCL 50 MG TABLET PO PRN (19:11)
[2023-05-22] MEDS ORDERED: CYCLOBENZAPRINE HCL 10 MG TAB PO PRN (19:11)
[2023-05-22] MEDS: LACTATED RINGER'S 1,000 ML IV SCH (20:01)
[2023-05-22] MEDS: KETOROLAC 30 MG/ML VIAL IV SCH (20:01)
--- NOTE | 2023-05-22 20:08 | Hospitalist Consultation ---
Date of Consultation May 22, 2023 Assessment & Plan (1) Extrusion of intervertebral disc: -Chronic persistent back and bilateral leg pain. -L2-L5 revision decompression and fusion done by Dr. Aguilar on 05/22. -Pain meds ordered per Dr. Aguilra. -Symptoms improving postsurgery. (2) Tinea corporis: - Patient with ringworm on his lower abdominal wall. - Denies noticing any discoloration or symptoms such as itching. - Start topical Lamisil BID. Will continue as an outpatient and follow-up with PCP. (3) Type 2 diabetes mellitus: - Home medications held. - Continue BSG checks, sliding-scale insulin, hypoglycemic protocol (4) Hyperlipidemia: -Continue atorvastatin 80 mg and fenofibrate 145 mg daily. (5) Hypertension: - borderline, not on any home medications. -Continue to monitor while admitted to the hospital. (6) DVT prophylaxis: -SCDs in place. Plan Fluids: None Nutrition: Clear liquids advance as tolerated Code status: Full code DVT ppx: SCDs Dispo: med/surg Supervising Physician Co-Signing Physician Notes Attending addendum: I have supervised the medical residents activities, and agree with the H&P unless as otherwise noted. Assessment and Plan: Status post L2-L5 revision decompression and fusion- Surgery performed by Dr. Aguilar on 05/[address] Aguilar Medically stable postoperatively Tinea corporis- Topical Lamisil twice daily as noted Diabetes mellitus- Hold home medications Accu-Cheks with NovoLog sliding scale Hyperlipidemia- Continue both atorvastatin and fenofibrate Mild in the hospitalist service will follow along during hospital stay History of Present Illness Reason for Consultation: Medical management Attending Physician: German Aguilar, History of Present Illness Patient is a 32-year-old male who had a L2-L5 revision decompression and fusion done by Dr. Aguilar on 05/22. The hospitalist service was consulted for medical management. Patient has past medical history of type 2 diabetes, hypertension, hyperlipidemia, and right bundle branch block. There is also concerns of ringworm on his lower abdomen. Patient denies any itchiness or areas of concern. Patient states that he has had hypertension but has always been borderline and has never been on a blood pressure medication. Patient is in some pain after surgery and waiting to get his pain medication. The pain is mostly in his back. States that his right-sided numbness and tingling in his leg is improving since surgery. Denies any other issues or concerns at this time. Denies any chest pain, shortness of breath, abdominal pain, nausea, or vomiting. Allergies Allergy/AdvReac Type Severity Reaction Status Date / Time cefuroxime Allergy Severe throat Verified 05/22/23 11:10 swells morphine Allergy Severe "THROAT Verified 05/22/23 11:10 SWELLS" Penicillins Allergy Severe throat Verified 05/22/23 11:10 swells Sulfa (Sulfonamide Allergy Severe throat Verified 05/22/23 11:10 Antibiotics) swells Home Medications Medication Instructions Recorded Confirmed Type atorvastatin 80 mg tablet 80 mg PO QAM 06/06/19 05/22/23 History metformin 1,000 mg tablet 1,000 mg PO BID 06/06/19 05/22/23 History albuterol sulfate 90 mcg/actuation 2 puff inhalation DAILY PRN Other 11/28/22 05/22/23 History aerosol inhaler cyclobenzaprine 10 mg tablet 10 mg PO Q8H PRN Pain 11/28/22 05/22/23 History dulaglutide 4.5 mg/0.5 mL 4.5 mg subcut WK 11/28/22 05/22/23 History subcutaneous pen injector (Trulicity) fenofibrate nanocrystallized 145 145 mg PO QAM 01/12/23 05/22/23 History mg tablet duloxetine 60 mg capsule,delayed 60 mg PO QAM 04/03/23 05/22/23 History release oxycodone 5 mg tablet 5 mg PO Q6H PRN pain #30 tabs 05/23/23 Rx tramadol 50 mg tablet 50 mg PO Q6H PRN pain, moderate 05/23/23 Rx #30 tabs Patient History Medical History (Updated 05/23/23 @ 10:21 by Silvia Lilly PA-C) Seasonal allergies Stable History of kidney stones no surgery required (years ago) no recent issues Hx of migraines Hyperlipidemia Asthma has not used rescue inhaler" for a long time" well controlled RBBB (right bundle branch block) patient states he has been diagnosed with the RBBB in ~. never had issues, does not follow with cardiology. had an echo done at [facility] in 2019 on his own due to a family history of cardiac issues and having the RBBB diagnosed. History of pancreatitis 2018 hospitalized at [facility]- no recent issues Type 2 diabetes mellitus Surgical History Family history of reaction to anesthesia mother>slow to wake up Fusion of spine lumbar History of esophagogastroduodenoscopy (EGD) History of colonoscopy History of myringotomy "multiple sets" History of tonsillectomy and adenoidectomy H/O arthroscopic knee surgery x2 *right S/P appendectomy S/P cholecystectomy Family History Father Coronary heart disease [place] at age 32 Social History Smoking Status: Former smoker Tobacco Type: Cigarettes, E-cigarettes / Vaping and Smokeless Tobacco (Dip or Chew) Smoking End Date: 2020; Second Hand Exposure: Yes (rare occas.); Do You Dip or Chew Tobacco: Yes (advised- 1 can/2 days (quit ~04/02/23)); Tobacco Cessation Education Requested by Patient: No Hx Alcohol Use: Yes Alcohol type: beer Alcohol Intake Frequency Comment: few times a year Hx Substance Use: No Preferred Language: French Communication Ability: Effective Etymology Professor Required: No Beliefs That Will Affect Care: None Current Living Situation: Family Other Information That Helps Us Care for You: No Feels Safe at Home: Yes Safety Concerns: Feels Safe At This Time Assistive Devices: Walker Review of Systems Review of Systems: All systems reviewed & are unremarkable except as noted in Subjective Physical Exam Constitutional: + obese Mild distress though comfortable Eyes: PERRL, conjunctivae normal, anicteric sclerae Respiratory: normal respiratory effort, lungs clear to auscultation Cardiovascular: RRR, no murmur, no edema Gastrointestinal (Abdomen): normal bowel sounds, soft, nontender, no hepatosplenomegaly Skin: Erythematous, raised, scaly ring with central clearing on the lower abdominal wall Results & Data Results & Data Vital Signs (Past 12 Hours) Vital Signs Temp Pulse Pulse Resp BP Pulse Ox O2 Del Method 05/22/23 19:30 36.8 C 104 H 18 142/81 H 98 Nasal Cannula 05/22/23 19:00 36.8 C 102 H 18 144/84 H 99 Nasal Cannula 05/22/23 18:45 79 14 163/78 H 97 Oxymask 05/22/23 18:35 36.2 C L 85 18 159/79 H 98 Oxymask 05/22/23 18:25 77 16 156/93 H 94 Oxymask 05/22/23 18:15 78 15 144/84 H 100 Oxymask 05/22/23 18:05 71 12 137/75 100 Oxymask 05/22/23 17:55 73 12 144/80 H 100 Oxymask 05/22/23 17:45 68 14 133/77 100 Oxymask 05/22/23 17:37 36.4 C L 84 16 149/89 H 100 Oxymask 05/22/23 11:10 37.3 C 84 18 144/88 H 97 Room Air O2 Flow Rate 05/22/23 19:30 3.0 05/22/23 19:00 3.0 05/22/23 18:45 4 05/22/23 18:35 4 05/22/23 18:25 4 05/22/23 18:15 4 05/22/23 18:05 4 05/22/23 17:55 4 05/22/23 17:45 6 05/22/23 17:37 6 05/22/23 11:10 Resident Activity Tracking Resident Involvement: Resident Care Provided Care Provided: Adult Hospital Medicine
[2023-05-22] MEDS ORDERED: CARBOHYDRATES FOR HYPOGLYCEMIA PO PRN (20:30)
[2023-05-22] MEDS ORDERED: GLUCOSE 40% GEL 15 GM TUBE PO PRN (20:30)
[2023-05-22] MEDS ORDERED: GLUCOSE 10 TAB/TUBE PO PRN (20:30)
[2023-05-22] MEDS ORDERED: DEXTROSE 50% 50 ML SYRINGE IV PRN (20:30)
[2023-05-22] MEDS ORDERED: GLUCAGON FOR INJ 1 MG VIAL SQ PRN (20:30)
[2023-05-22] MEDS: HYDROmorphone INJ 1 MG/ML SYRINGE IV PRN (20:34)
[2023-05-22] MEDS: oxyCODONE HCL IR 5 MG TAB (IMMEDIATE RELEASE) PO PRN (21:08)
[2023-05-22] MEDS: DOCUSATE SODIUM/SENNA 50/8.6MG TAB PO SCH (21:08)
[2023-05-22] MEDS: TERBINAFINE CR 30 GM TUBE EXT SCH (21:08)
[2023-05-22] MEDS: INSULIN ASPART PER UNIT CHARGE SC SCH (21:09)
[2023-05-22] MEDS: CLINDAMYCIN/D5W 600 MG/50 ML BAG IV SCH (22:57)
[2023-05-22] MEDS: HYDROmorphone INJ 0.5 MG/0.5 ML SYR IV PRN (23:42)
[2023-05-23] MEDS: KETOROLAC 30 MG/ML VIAL IV SCH ×2 (01:37→08:41)
[2023-05-23] MEDS: LACTATED RINGER'S 1,000 ML IV SCH (01:37)
[2023-05-23] MEDS: oxyCODONE HCL IR 5 MG TAB (IMMEDIATE RELEASE) PO PRN ×4 (01:38→21:32)
[2023-05-23] MEDS ORDERED: INSULIN ASPART PER UNIT CHARGE SC SCH (03:00)
[2023-05-23] MEDS: HYDROmorphone INJ 0.5 MG/0.5 ML SYR IV PRN (03:04)
[2023-05-23] MEDS: CLINDAMYCIN/D5W 600 MG/50 ML BAG IV SCH (06:18)
[2023-05-23] MEDS: POLYETHYLENE (MIRALAX) 17 GM PACK PO SCH ×3 (06:22→17:28)
[2023-05-23 07:15] LABS: Basophils # (auto) 0.03 K/uL (0.00-0.20); Basophils % (auto) 0.2 %; Hematocrit (blood only) 37.1 % (42.0-52.0); Hemoglobin 12.9 g/dl (14.0-18.0); Immature Granulocytes # (auto) 0.07 K/uL (0.01-0.20); Immature Granulocytes % (auto) 0.5 %; Lymphocytes % (auto) 10.6 %; Mean Corpuscular Hemoglobin 29.9 pg (25.0-34.0); Mean Corpuscular Hgb Conc 34.8 g/dL (32.0-36.0); Mean Corpuscular Volume 86.1 fL (80.0-100.0); Mean Platelet Volume 10.9 fL (9.4-12.4); Monocytes # (auto) 1.46 K/uL (0.11-0.59); Neutrophils # (auto) 10.31 K/uL (1.40-6.50); Neutrophils % (auto) 77.7 %; Platelet Count 180 K/uL (130-400); RDW Coefficient of Variation 12.4 % (11.5-14.5); RDW Standard Deviation 39.5 fL (36.4-46.3); Red Blood Count 4.31 M/uL (4.70-6.10); White Blood Count 13.27 K/ul (4.8-10.8)
[2023-05-23 07:33] LABS: BUN Creatinine Ratio 16.7 (10-20); Calcium 8.7 mg/dl (8.6-10.3); Creatinine Clr Calc Pharmacy 102.2 ml/min; Est GFR (African American) 83.3 ml/min; Est GFR (Non-African American) 71.9 ml/min; Potassium 4.9 mmol/L (3.5-5.1)
--- NOTE | 2023-05-23 07:38 | Hospitalist Progress Note ---
Date of Service May 23, 2023 Assessment & Plan (1) Neurogenic claudication due to lumbar spinal stenosis: Plan: Chronic persistent back and bilateral leg pain. s/p L2-L5 decompression/fusion (revision) with Dr Aguilar 05/22. Actual procedure: #1 revision decompression with bilateral medial facetectomies and foraminotomies L2-L3, L3-L4 L4-L5. #2 posterior spinal fusion L2-L5. #3 placed posterior instrumentation L2-L5. #4 interbody fusion L2-L3, L3-L4 and L4-L5. #5 placement spiral 14 x 26 mm at L3-4, 14 x 26 mm at L2-L3 and 15 x 26 mm at L4-L5 #6 placement locally harvested morselized autograft in the posterior gutters. #7 placement infuse collagen sponge, with Koros in the posterior gutters and Morpheus bone graft in the interbody spaces. EBL 400cc WBC elevation suspected 2nd to steroids. Afebrile. Hgb 17.3--> 12.9, acute blood loss anemia from surgery (EBL 400cc, PIOTR output 525cc thus far), suspect some aspect of dilution from IVF -BP 129/74, 96% on RA BUN/Cr 22/1.32. - Cr slightly up and placed further toradol on hold (patient reports not much effect w/ this as well) Pain/bowel regimen/PT/OT per primary service DVT prophylaxis SCDs, ambulation (ambulating since surgery) Has been ambulating suarez, pain much improved to LE, having some incisional pain but patient is hopeful for dc tomorrow (weather/storm coming, he is from [facility]) (2) Extrusion of intervertebral disc: Plan: as above, s/p intervention (3) Tinea corporis: Plan: Patient with ringworm on his lower abdominal wall. Denies noticing any discoloration or symptoms such as itching. Start topical Lamisil BID. Will continue as an outpatient and follow-up with PCP. (4) Type 2 diabetes mellitus: Plan: Home meds held, pharmacy consulted for glycemic management while inpatient G;saray 189 on AM labs, POC 170 Monitor/adjustment to SSI/glargine as required while on dexamethasone per primary (5) Hyperlipidemia: Plan: Continue atorvastatin 80 mg and fenofibrate 145 mg daily. Hx pancreatitis in the past likely 2nd to elevated TRG levels. F/u outpatient (6) Hypertension: Plan: Borderline, not on any home medications. BP 142/77 at present time in hospital setting. F/u with PCP recommended and likely benefit checking urine for microalbumin/start NEAL/ARB if positive for risk prevention given family hx premature CAD Continue to monitor (7) Vitamin D deficiency: Plan: Ca 10.1 on labs (currently normal), however checked Vit D for completeness given bone/joint pains and paresthesias baseline (improved since surgical intervention). Reports he HAS had history of kidney stones. VIt D LOW 8.2 -- will start ergocalciferol 50,000 weekly. Continue at d/c and f/u PCP for ongoing treatment at [facility]. Check PTH in AM for completeness to ensure appropriately elevated in setting of low Vit D. If abn would refer to endo (8) Elevated serum creatinine: Plan: Cr 1.32 w/ baseline <1 suspect worsened w/ NSAID use. Patient does have hx pancreatitis/elevated TRG l evel - HOLDING further toradol. Monitor BMP in AM (9) DVT prophylaxis: Plan: -SCDs in place, has been ambulating well with walker Plan THank you for allowing hospitalist service to participate in the care of Mr Aldana. Hospitalist service will follow along in AM. Please call with any question/concerns. Admission and Anticipated Discharge Date Admission Date: May 22, 2023 Subjective Eval this morning, attempting to ambulate in room. Just seen by Dr Aguilar, monitoring overnight. Pain controlled with ordered medications. Patient reports even after hour after surgery wanting to get up/feeling much better. RLE symptoms significantly improved. Eating/drinking without issue, passing lots of gas. Bowel regimen continued. He is hopeful for ms tomorrow due to impending weather if continues to do well. Discussed holding toradol and monitoring renal function. Needing new gown to ambulate halls (no bottom tie) - RN to provide. No fevers/chills, chest pain, shortness of breath. Questions/concerns addressed at this time. Physical Exam Physical Exam: General: WD/WN male ambulating in the room, NAD Head atraumatic, normocephalic, slightly thick neck but trachea midline Resp even/unlabored, no w/c/r, on room air CV; RRR, no significant m/r/g, no pitting edema/calf tenderness GI: +BS, NT ; no shipman MSK/Neuro: dressing to lumbar spine c/d/i, sensation intact/toes mobile, strength intact bilaterally, ambulating in the room with a walker and wanting to get new gown to ambulate in the halls Results & Data Results & Data Vital Signs (Past 12 Hours) Vital Signs Temp Pulse Resp BP BP Pulse Ox O2 Del Method 05/23/23 02:57 36.8 C 77 18 129/74 96 Room Air 05/22/23 22:18 36.5 C 81 16 113/73 96 Room Air 05/22/23 21:02 37.0 C 99 H 18 122/77 95 Room Air 05/22/23 20:06 36.9 C 103 H 16 131/88 100 Nasal Cannula 05/22/23 19:30 36.8 C 104 H 18 142/81 H 98 Nasal Cannula O2 Flow Rate 05/23/23 02:57 05/22/23 22:18 05/22/23 21:02 05/22/23 20:06 2 05/22/23 19:30 3.0 Laboratory Results 05/23/23 05/23/23 05/23/23 Range/Units 08:22 07:51 06:27 WBC 13.27 H (4.8-10.8) K/ul RBC 4.31 L (4.70-6.10) M/uL Hgb 12.9 L D (14.0-18.0) g/dl Hct 37.1 L (42.0-52.0) % MCV 86.1 (80.0-100.0) fL MCH 29.9 (25.0-34.0) pg MCHC 34.8 (32.0-36.0) g/dL RDW Std Deviation 39.5 (36.4-46.3) fL RDW Coeff of Ebony 12.4 (11.5-14.5) % Plt Count 180 (130-400) K/uL MPV 10.9 (9.4-12.4) fL Immature Gran % (Auto) 0.5 % Neut % (Auto) 77.7 % Lymph % (Auto) 10.6 % Hidalgo % (Auto) 11.0 % Eos % (Auto) 0.0 % Baso % (Auto) 0.2 % Neut # (Auto) 10.31 H (1.40-6.50) K/uL Lymph # (Auto) 1.40 (1.20-3.40) K/uL Hidalgo # (Auto) 1.46 H (0.11-0.59) K/uL Eos # (Auto) 0.00 (0.00-0.50) K/uL Baso # (Auto) 0.03 (0.00-0.20) K/uL Immature Gran # (Auto) 0.07 (0.01-0.20) K/uL PT (9.0-12.0) Seconds INR (0.9-1.1) APTT (21-31) Seconds PTT Ratio Sodium 134 L (136-145) mmol/L Potassium 4.9 D (3.5-5.1) mmol/L Chloride 100 (98-107) mmol/L Carbon Dioxide 27 (21-32) mmol/L Anion Gap 7 (3-11) BUN 22 (6-23) mg/dl Creatinine 1.32 D (0.6-1.4) mg/dl Est Cr Clr Drug Dosing 102.2 ml/min Est GFR ( Amer) 83.3 ml/min Est GFR (Non-Af Amer) 71.9 ml/min BUN/Creatinine Ratio 16.7 (10-20) Glucose 189 H (70-99(Fasting)) mg/dl POC Glucose 170 H (70-99) mg/dl Calcium 8.7 (8.6-10.3) mg/dl 25-OH Vitamin D Total 8.2 L (30-100) ng/ml Blood Type Antibody Screen Crossmatch 05/23/23 05/22/23 05/22/23 Range/Units 02:54 20:57 17:42 WBC (4.8-10.8) K/ul RBC (4.70-6.10) M/uL Hgb (14.0-18.0) g/dl Hct (42.0-52.0) % MCV (80.0-100.0) fL MCH (25.0-34.0) pg MCHC (32.0-36.0) g/dL RDW Std Deviation (36.4-46.3) fL RDW Coeff of Ebony (11.5-14.5) % Plt Count (130-400) K/uL MPV (9.4-12.4) fL Immature Gran % (Auto) % Neut % (Auto) % Lymph % (Auto) % Hidalgo % (Auto) % Eos % (Auto) % Baso % (Auto) % Neut # (Auto) (1.40-6.50) K/uL Lymph # (Auto) (1.20-3.40) K/uL Hidalgo # (Auto) (0.11-0.59) K/uL Eos # (Auto) (0.00-0.50) K/uL Baso # (Auto) (0.00-0.20) K/uL Immature Gran # (Auto) (0.01-0.20) K/uL PT (9.0-12.0) Seconds INR (0.9-1.1) APTT (21-31) Seconds PTT Ratio Sodium (136-145) mmol/L Potassium (3.5-5.1) mmol/L Chloride (98-107) mmol/L Carbon Dioxide (21-32) mmol/L Anion Gap (3-11) BUN (6-23) mg/dl Creatinine (0.6-1.4) mg/dl Est Cr Clr Drug Dosing ml/min Est GFR ( Amer) ml/min Est GFR (Non-Af Amer) ml/min BUN/Creatinine Ratio (10-20) Glucose (70-99(Fasting)) mg/dl POC Glucose 185 H 204 H 150 H (70-99) mg/dl Calcium (8.6-10.3) mg/dl 25-OH Vitamin D Total (30-100) ng/ml Blood Type Antibody Screen Crossmatch 05/22/23 05/22/23 Range/Units 11:14 11:04 WBC 6.79 (4.8-10.8) K/ul RBC 5.82 (4.70-6.10) M/uL Hgb 17.3 (14.0-18.0) g/dl Hct 49.7 (42.0-52.0) % MCV 85.4 (80.0-100.0) fL MCH 29.7 (25.0-34.0) pg MCHC 34.8 (32.0-36.0) g/dL RDW Std Deviation 38.3 (36.4-46.3) fL RDW Coeff of Ebony 12.5 (11.5-14.5) % Plt Count 166 (130-400) K/uL MPV 10.8 (9.4-12.4) fL Immature Gran % (Auto) 0.3 % Neut % (Auto) 60.8 % Lymph % (Auto) 22.4 % Hidalgo % (Auto) 14.1 % Eos % (Auto) 1.2 % Baso % (Auto) 1.2 % Neut # (Auto) 4.13 (1.40-6.50) K/uL Lymph # (Auto) 1.52 (1.20-3.40) K/uL Hidalgo # (Auto) 0.96 H (0.11-0.59) K/uL Eos # (Auto) 0.08 (0.00-0.50) K/uL Baso # (Auto) 0.08 (0.00-0.20) K/uL Immature Gran # (Auto) 0.02 (0.01-0.20) K/uL PT 11.4 (9.0-12.0) Seconds INR 1.0 (0.9-1.1) APTT 26 (21-31) Seconds PTT Ratio 0.9 Sodium 138 (136-145) mmol/L Potassium 3.9 (3.5-5.1) mmol/L Chloride 102 (98-107) mmol/L Carbon Dioxide 28 (21-32) mmol/L Anion Gap 8 (3-11) BUN 12 (6-23) mg/dl Creatinine 0.97 (0.6-1.4) mg/dl Est Cr Clr Drug Dosing 139.1 ml/min Est GFR ( Amer) 120.9 ml/min Est GFR (Non-Af Amer) 104.3 ml/min BUN/Creatinine Ratio 12.4 (10-20) Glucose 171 H (70-99(Fasting)) mg/dl POC Glucose 169 H (70-99) mg/dl Calcium 10.1 (8.6-10.3) mg/dl 25-OH Vitamin D Total (30-100) ng/ml Blood Type A Positive Antibody Screen NEGATIVE Crossmatch See Detail PG Care Time/CCT Total # of Minutes Spent Total Time Spent with Patient: Total time spent is greater than 50% in coordination of care (as documented) at patient's floor/unit and/or counseling patient: Coding Level of Care Code 40603 SUB INP/OBS CARE 50MIN Diagnoses Neurogenic claudication due to lumbar spinal stenosis M48.062 Extrusion of intervertebral disc Tinea corporis B35.4 Type 2 diabetes mellitus E11.9 Hyperlipidemia E78.5 Hypertension I10 Vitamin D deficiency E55.9 Elevated serum creatinine R79.89 DVT prophylaxis Z29.9
[2023-05-23] MEDS: HYDROmorphone INJ 1 MG/ML SYRINGE IV PRN ×5 (08:39→23:48)
[2023-05-23] MEDS: dexAMETHasone 6 MG in SYRINGE 0 ML IV SCH (08:41)
[2023-05-23] MEDS: ATORVASTATIN 40 MG TAB PO SCH (08:42)
[2023-05-23] MEDS: DULoxetine HCL 60 MG CAP PO SCH (08:42)
[2023-05-23] MEDS: TERBINAFINE CR 30 GM TUBE EXT SCH ×2 (08:42→19:58)
[2023-05-23] MEDS: FENOFIBRATE NANOCRYSTALLIZED 145 MG TABLET PO SCH (08:42)
[2023-05-23] MEDS: INSULIN ASPART PER UNIT CHARGE SC SCH ×4 (08:53→21:26)
[2023-05-23] MEDS ORDERED: LANTUS PER UNIT CHARGE SC SCH ×2 (09:00→21:00)
--- NOTE | 2023-05-23 10:05 | Orthopedic Progress Note ---
Date of Service May 23, 2023 Assessment & Plan (1) Neurogenic claudication due to lumbar spinal stenosis: Plan: At this time continue physical therapy monitor his PIOTR operatively discharge home next few days. Admission and Anticipated Discharge Date Admission Date: May 22, 2023 Subjective Back pain is controlled leg pain markedly improved Physical Exam Physical Exam: Patient is in bed. He is good strength testing. He is comfortable. Results & Data Vital Signs (Past 12 Hours) Vital Signs Temp Pulse Resp BP Pulse Ox O2 Del Method 05/23/23 09:17 37.2 C 96 H 18 142/77 H 95 Room Air 05/23/23 02:57 36.8 C 77 18 129/74 96 Room Air 05/22/23 22:18 36.5 C 81 16 113/73 96 Room Air Queries Orthopedic Spine Obesity: Yes
[2023-05-23] MEDS ORDERED: ERGOCALCIFEROL 1250 MCG (50,000 UNITS) CAP PO SCH (11:00)
--- NOTE | 2023-05-23 13:22 | Pharmacy Report ---
Pharmacy Glycemic Short Note 2 - Date of Service May 23, 2023 - Glycemic Short BSG Results (Last 24 hours): 05/22/23 05/22/23 05/23/23 17:42 20:57 02:54 Glucose POC Glucose 150 H 204 H 185 H 05/23/23 05/23/23 05/23/23 06:27 07:51 12:01 Glucose 189 H POC Glucose 170 H 237 H OUTPATIENT ANTIDIABETIC REGIMEN: * Metformin 1000 mg PO BIDM * Trulicity 4.5 mg SC weekly HbA1c: 10.5% (01/20/24) ASSESSMENT: * MW is a 32 year old male POD #1 s/p lumbar decompression/fusion * Received IV dexamethasone in OR and is ordered dexamethasone 6 mg IV daily starting 05/23 x 3 doses * Hyperglycemic postoperatively, will add basal and tighten Novolog to cover steroids * Poorly controlled T2DM as an outpatient based on HbA1c PLAN FOR INPATIENT GLYCEMIC CONTROL: * Hold outpatient oral diabetes medications * Basal insulin * Lantus 30 units SQ daily * Lantus 0-20 units SC HS x 1 * Bolus insulin * NovoLog per scale ACHS or Q6hrs while NPO * Goal Range: Low 110 mg/dL - High 140 mg/dL * Correction Factor: 12 mg/dL/unit * Nutritional / Prandial insulin per carb ratio of 1 unit per 4 grams CHO consumed
[2023-05-23 15:26] LABS: Magnesium 1.1 mg/dl (1.7-2.4)
--- NOTE | 2023-05-23 17:01 | Communication Note ---
Date of Service: May 23, 2023 Checked magnesium given prior lows/paresthesias/cramping at baseline --> LOW 1.1. Unclear cause, not on PPI or thiazide diuretics. ?underlying gittleman/ barter? other IV mag ordered and will monitor level in AM. Likely will need further work up w/ PCP as outpatient
[2023-05-23] MEDS: MAGNESIUM SULFATE / D5W 1 GM/100 ML BAG IV SCH ×3 (17:17→22:13)
[2023-05-23] MEDS: DOCUSATE SODIUM/SENNA 50/8.6MG TAB PO SCH (19:58)
[2023-05-24] MEDS: MAGNESIUM SULFATE / D5W 1 GM/100 ML BAG IV SCH (00:13)
[2023-05-24] MEDS: POLYETHYLENE (MIRALAX) 17 GM PACK PO SCH ×2 (00:30→05:47)
--- NOTE | 2023-05-24 05:43 | Billing Data ---
Date of Service May 24, 2023 Coding Level of Care Code 13992 IN/OBS CONSULT LVL 3,45M
[2023-05-24] MEDS: oxyCODONE HCL IR 5 MG TAB (IMMEDIATE RELEASE) PO PRN (05:47)
[2023-05-24 06:57] LABS: Hematocrit (blood only) 33.1 % (42.0-52.0); Hemoglobin 11.1 g/dl (14.0-18.0); Mean Corpuscular Hemoglobin 29.2 pg (25.0-34.0); Mean Corpuscular Hgb Conc 33.5 g/dL (32.0-36.0); Mean Corpuscular Volume 87.1 fL (80.0-100.0); Mean Platelet Volume 10.8 fL (9.4-12.4); Platelet Count 141 K/uL (130-400); RDW Coefficient of Variation 12.8 % (11.5-14.5); White Blood Count 11.02 K/ul (4.8-10.8)
[2023-05-24 07:26] LABS: Estimated Average Glucose 171 mg/dl; Hemoglobin A1C 7.6 % (4.5-5.6)
[2023-05-24] MEDS: HYDROmorphone INJ 1 MG/ML SYRINGE IV PRN ×2 (07:45→10:21)
[2023-05-24] MEDS: DULoxetine HCL 60 MG CAP PO SCH (07:48)
[2023-05-24] MEDS: ATORVASTATIN 40 MG TAB PO SCH (07:48)
[2023-05-24] MEDS: FENOFIBRATE NANOCRYSTALLIZED 145 MG TABLET PO SCH (07:49)
[2023-05-24] MEDS: dexAMETHasone 6 MG in SYRINGE 0 ML IV SCH (07:49)
[2023-05-24] MEDS: TERBINAFINE CR 30 GM TUBE EXT SCH (07:50)
[2023-05-24 07:52] LABS: Albumin Level 3.6 gm/dl (3.4-5.0); BUN Creatinine Ratio 22.2 (10-20); Bilirubin,Total 0.5 mg/dl (0.2-1.0); Calcium 8.4 mg/dl (8.6-10.3); Chol HDL Ratio 2.5 (0-5); Creatinine Clr Calc Pharmacy 136.3 ml/min; Est GFR (Non-African American) 101.8 ml/min; Globulin 1.8 gm/dl (2.5-4.0); Magnesium 1.7 mg/dl (1.7-2.4); Phosphorus 3.2 mg/dl (2.5-4.9); Potassium 3.8 mmol/L (3.5-5.1); Total Protein 5.4 gm/dl (6.0-8.3)
[2023-05-24 07:53] LABS: Thyroid Stimulating Hormone 0.241 uIu/ml (0.300-4.500)
--- NOTE | 2023-05-24 08:04 | Hospitalist Progress Note ---
Date of Service May 24, 2023 Assessment & Plan (1) Neurogenic claudication due to lumbar spinal stenosis: Plan: Chronic persistent back and bilateral leg pain. s/p L2-L5 decompression/fusion (revision) with Dr Aguilar 05/22. Actual procedure: #1 revision decompression with bilateral medial facetectomies and foraminotomies L2-L3, L3-L4 L4-L5. #2 posterior spinal fusion L2-L5. #3 placed posterior instrumentation L2-L5. #4 interbody fusion L2-L3, L3-L4 and L4-L5. #5 placement spiral 14 x 26 mm at L3-4, 14 x 26 mm at L2-L3 and 15 x 26 mm at L4-L5 #6 placement locally harvested morselized autograft in the posterior gutters. #7 placement infuse collagen sponge, with Koros in the posterior gutters and Morpheus bone graft in the interbody spaces. EBL 400cc WBC elevation suspected 2nd to steroids. Afebrile. Hgb 17.3--> 12.9--> 11k, acute blood loss anemia from surgery (EBL 400cc, PIOTR output 525cc thus far), suspect some aspect of dilution from IVF as well as dexamethason w/ surgery -BP 144/73, on room air BUN/Cr normalized w/ holding further toradol. Cautious use NSAIDs recommended Pain/bowel regimen/PT/OT per primary service DVT prophylaxis SCDs, ambulation (ambulating since surgery) Patient wanting discharge this AM , 1.28. Discussed w/ Dr Aguilar. He is resending rx for pain meds to [facility] as requested. Discussed continued vitamin D supplementation and repeat TFT w/ PCP as well as endocrinology f/u at discharge. His lipid panel is MUCH improved on current statin therapy, A1c to 7.1 and resumed home metformin/trulicity at discharge (2) Extrusion of intervertebral disc: Plan: as above, s/p intervention (3) Tinea corporis: Plan: Patient with ringworm on his lower abdominal wall. Denies noticing any discoloration or symptoms such as itching. Started topical Lamisil BID- should continue over the counter as needed and f/u PCP (4) Type 2 diabetes mellitus: Plan: Home meds held, pharmacy consulted for glycemic management while inpatient given dexamethason (also mag IV replacement w/ dextrose) Elevated BSGs but improved, A1c to 7s on repeat and can resume home meds and f/u PCP at discharge. Of note, B12 180 checked on metformin. -Can f/u PCp about monthly injection vs PO supplementation at oh ENdo f/u as below for abn TSH/vitamin D/low PTH (in patient w/ hx kidney stones) (5) Hyperlipidemia: Plan: Continue atorvastatin 80 mg and fenofibrate 145 mg daily. Hx pancreatitis in the past likely 2nd to elevated TRG levels. Lipid panel MUCH improved F/u outpatient (6) Hypertension: Plan: Borderline, not on any home medications. BP 144/73 at present time in hospital setting in setting of surgery/pain F/u with PCP recommended and likely benefit checking urine for microalbumin/start NEAL/ARB if positive for risk prevention given family hx premature CAD (7) Vitamin D deficiency: Plan: Ca 10.1 on labs (currently normal), however checked Vit D for completeness given bone/joint pains and paresthesias baseline (improved since surgical intervention). Reports he HAS had history of kidney stones. VIt D LOW 8.2 -- started ergocalciferol 50,000 weekly, rx at d/c PTH however not appropriately elevated and was 41.8. --> WIll have navigator work on referral to endocrine given his underlying DM/TSH as below. Discussed w/ patient and recommended repeat TFT in f/u as well (8) Elevated serum creatinine: Plan: Cr 1.32 w/ baseline <1. suspect worsened w/ NSAID use. Patient does have hx pancreatitis/elevated TRG level Held further toradol, Cr back to baseline on repeat labs (9) DVT prophylaxis: Plan: -SCDs in place, has been ambulating well with walker (10) Hypomagnesemia: Plan: hx of lows, checked evening 05/23 and was 1.1 - IV replacement ordered. 1.7 on AM labs. Unclear cause, not on PPI therapy rec f/u PCP, likely oral supplementation daily given prior lows to maintain adequate levels (11) Abnormal TSH: Plan: Checked given prior low Na levels. TSH was low at 0.241. F4 1.22. F/u PCP at discharge Plan THank you for allowing hospitalist service to participate in the care of Mr Aldana. Hospitalist service will follow along in AM. Please call with any question/concerns. Admission and Anticipated Discharge Date Admission Date: May 22, 2023 Subjective Eval this morning, doing well. Anxious for dc pending weather/snow near their home. Mother at bedside and reporting needing medications sent to ensure pharmacy has. Call to Dr Aguilar and sent day prior to [facility], patient states closed today, needs sent to [facility]. Discussed vitamin deficiencies and follow up with PCP/endocrinology referal. No fever/chills, chest pain, shortness of breath, nausea/vomiting. Questions/concerns addressed at this time. Physical Exam Physical Exam: General: WD/WN male resting in bed, NAD, anxious to discharge home before weather, family in room Head atraumatic, normocephalic, slightly thick neck but trachea midline, no thyromegaly/nodules appreciated Resp even/unlabored, no w/c/r, on room air CV; RRR, no significant m/r/g, no pitting edema/calf tenderness GI: +BS, NT ; no shipman MSK/Neuro: dressing to lumbar spine c/d/i, sensation intact/toes mobile, strength intact bilaterally, prior ambulating with walker without issue Psych: AOx3, cooperative with exam Results & Data Results & Data Vital Signs (Past 12 Hours) Vital Signs Temp Pulse Resp BP Pulse Ox O2 Del Method 05/24/23 00:16 128/68 05/23/23 21:10 36.7 C 90 18 155/74 H 95 Room Air Laboratory Results 05/24/23 05/24/23 05/23/23 Range/Units 08:07 06:20 21:01 WBC 11.02 H (4.8-10.8) K/ul RBC 3.80 L (4.70-6.10) M/uL Hgb 11.1 L (14.0-18.0) g/dl Hct 33.1 L (42.0-52.0) % MCV 87.1 (80.0-100.0) fL MCH 29.2 (25.0-34.0) pg MCHC 33.5 (32.0-36.0) g/dL RDW Std Deviation 40.0 (36.4-46.3) fL RDW Coeff of Ebony 12.8 (11.5-14.5) % Plt Count 141 (130-400) K/uL MPV 10.8 (9.4-12.4) fL Sodium 136 (136-145) mmol/L Potassium 3.8 D (3.5-5.1) mmol/L Chloride 103 (98-107) mmol/L Carbon Dioxide 29 (21-32) mmol/L Anion Gap 4 (3-11) BUN 22 (6-23) mg/dl Creatinine 0.99 D (0.6-1.4) mg/dl Est Cr Clr Drug Dosing 136.3 ml/min Est GFR ( Amer) 118.0 ml/min Est GFR (Non-Af Amer) 101.8 ml/min BUN/Creatinine Ratio 22.2 H (10-20) Glucose 237 H (70-99(Fasting)) mg/dl POC Glucose 199 H 310 H* (70-99) mg/dl Estimat Average Glucose 171 mg/dl Hemoglobin A1c 7.6 H (4.5-5.6) % Calcium 8.4 L (8.6-10.3) mg/dl Phosphorus 3.2 (2.5-4.9) mg/dl Magnesium 1.7 (1.7-2.4) mg/dl Total Bilirubin 0.5 (0.2-1.0) mg/dl AST 19 (13-39) U/L ALT 25 (7-52) U/L Alkaline Phosphatase 24 L (34-104) U/L Total Protein 5.4 L (6.0-8.3) gm/dl Albumin 3.6 (3.4-5.0) gm/dl Globulin 1.8 L (2.5-4.0) gm/dl Albumin/Globulin Ratio 2.0 (0.9-2) Triglycerides 97 (0-150) mg/dl Cholesterol 108 (0-200) mg/dl LDL Cholesterol, Calc 46 mg/dl VLDL Cholesterol, Calc 19 (0-30) mg/dl HDL Cholesterol 43 mg/dl Cholesterol/HDL Ratio 2.5 (0-5) Vitamin B12 180 (180-914) pg/ml TSH 0.241 L (0.300-4.500) uIu/ml Free T4 1.22 (0.61-1.60) ng/dl PTH Intact 41.8 (12.0-88.0) pg/ml Crossmatch 01/27/24 01/27/24 01/27/24 Range/Units 17:19 17:17 12:01 WBC (4.8-10.8) K/ul RBC (4.70-6.10) M/uL Hgb (14.0-18.0) g/dl Hct (42.0-52.0) % MCV (80.0-100.0) fL MCH (25.0-34.0) pg MCHC (32.0-36.0) g/dL RDW Std Deviation (36.4-46.3) fL RDW Coeff of Ebony (11.5-14.5) % Plt Count (130-400) K/uL MPV (9.4-12.4) fL Sodium (136-145) mmol/L Potassium (3.5-5.1) mmol/L Chloride (98-107) mmol/L Carbon Dioxide (21-32) mmol/L Anion Gap (3-11) BUN (6-23) mg/dl Creatinine (0.6-1.4) mg/dl Est Cr Clr Drug Dosing ml/min Est GFR ( Amer) ml/min Est GFR (Non-Af Amer) ml/min BUN/Creatinine Ratio (10-20) Glucose (70-99(Fasting)) mg/dl POC Glucose 319 H* 306 H* 237 H (70-99) mg/dl Estimat Average Glucose mg/dl Hemoglobin A1c (4.5-5.6) % Calcium (8.6-10.3) mg/dl Phosphorus (2.5-4.9) mg/dl Magnesium (1.7-2.4) mg/dl Total Bilirubin (0.2-1.0) mg/dl AST (13-39) U/L ALT (7-52) U/L Alkaline Phosphatase (34-104) U/L Total Protein (6.0-8.3) gm/dl Albumin (3.4-5.0) gm/dl Globulin (2.5-4.0) gm/dl Albumin/Globulin Ratio (0.9-2) Triglycerides (0-150) mg/dl Cholesterol (0-200) mg/dl LDL Cholesterol, Calc mg/dl VLDL Cholesterol, Calc (0-30) mg/dl HDL Cholesterol mg/dl Cholesterol/HDL Ratio (0-5) Vitamin B12 (180-914) pg/ml TSH (0.300-4.500) uIu/ml Free T4 (0.61-1.60) ng/dl PTH Intact (12.0-88.0) pg/ml Crossmatch 05/23/23 05/22/23 Range/Units 06:27 11:04 WBC (4.8-10.8) K/ul RBC (4.70-6.10) M/uL Hgb (14.0-18.0) g/dl Hct (42.0-52.0) % MCV (80.0-100.0) fL MCH (25.0-34.0) pg MCHC (32.0-36.0) g/dL RDW Std Deviation (36.4-46.3) fL RDW Coeff of Ebony (11.5-14.5) % Plt Count (130-400) K/uL MPV (9.4-12.4) fL Sodium (136-145) mmol/L Potassium (3.5-5.1) mmol/L Chloride (98-107) mmol/L Carbon Dioxide (21-32) mmol/L Anion Gap (3-11) BUN (6-23) mg/dl Creatinine (0.6-1.4) mg/dl Est Cr Clr Drug Dosing ml/min Est GFR ( Amer) ml/min Est GFR (Non-Af Amer) ml/min BUN/Creatinine Ratio (10-20) Glucose (70-99(Fasting)) mg/dl POC Glucose (70-99) mg/dl Estimat Average Glucose mg/dl Hemoglobin A1c (4.5-5.6) % Calcium (8.6-10.3) mg/dl Phosphorus (2.5-4.9) mg/dl Magnesium 1.1 L (1.7-2.4) mg/dl Total Bilirubin (0.2-1.0) mg/dl AST (13-39) U/L ALT (7-52) U/L Alkaline Phosphatase (34-104) U/L Total Protein (6.0-8.3) gm/dl Albumin (3.4-5.0) gm/dl Globulin (2.5-4.0) gm/dl Albumin/Globulin Ratio (0.9-2) Triglycerides (0-150) mg/dl Cholesterol (0-200) mg/dl LDL Cholesterol, Calc mg/dl VLDL Cholesterol, Calc (0-30) mg/dl HDL Cholesterol mg/dl Cholesterol/HDL Ratio (0-5) Vitamin B12 (180-914) pg/ml TSH (0.300-4.500) uIu/ml Free T4 (0.61-1.60) ng/dl PTH Intact (12.0-88.0) pg/ml Crossmatch See Detail PG Care Time/CCT Total # of Minutes Spent Total Time Spent with Patient: Total time spent is greater than 50% in coordination of care (as documented) at patient's floor/unit and/or counseling patient: Coding Level of Care Code 01280 SUB INP/OBS CARE 3/50MIN Diagnoses Neurogenic claudication due to lumbar spinal stenosis M48.062 Extrusion of intervertebral disc Tinea corporis B35.4 Type 2 diabetes mellitus E11.9 Hyperlipidemia E78.5 Hypertension I10 Vitamin D deficiency E55.9 Elevated serum creatinine R79.89 DVT prophylaxis Z29.9 Hypomagnesemia E83.42 Abnormal TSH R79.89
[2023-05-24 08:34] LABS: T4 Free Thyroxine 1.22 ng/dl (0.61-1.60)
[2023-05-24] MEDS: INSULIN ASPART PER UNIT CHARGE SC SCH (08:40)
[2023-05-24] MEDS ORDERED: ERGOCALCIFEROL 1250 MCG (50,000 UNITS) CAP PO SCH (09:00)
[2023-05-24] MEDS ORDERED: LANTUS PER UNIT CHARGE SC SCH (09:00)
--- NOTE | 2023-05-24 11:27 | Discharge Summary ---
Date of Service May 24, 2023 Admission HPI Per Admitting Provider This is a 32-year-old male presents with chronic persistent back and bilateral leg pain with failed course of nonoperative care is here for surgical invention. Principal Diagnosis Lumbar disc herniation with radiculopathy and spinal stenosis Discharge Data Allergies Allergy/AdvReac Type Severity Reaction Status Date / Time cefuroxime Allergy Severe throat Verified 05/22/23 11:10 swells morphine Allergy Severe "THROAT Verified 05/22/23 11:10 SWELLS" Penicillins Allergy Severe throat Verified 05/22/23 11:10 swells Sulfa (Sulfonamide Allergy Severe throat Verified 05/22/23 11:10 Antibiotics) swells Consultations 05/22/23 19:11 Consult Hospitalist Routine 05/24/23 08:24 Consult [facility] hose finisher Routine Procedures Performed Operation Date: 05/22/23 12:25 Actual Procedures p L2-L5 Revison Decompression and Fusion, Spinal Cord Monitoring(Not Applicable) - German Aguilar DO Ordered Studies 05/22/23 12:25 FL lumbar spine 2-3V Routine Hospital Course (1) Protrusion of intervertebral disc: Patient went lumbar decompression fusion Jose Alberto Will taken to orthopedic floor postoperatively. Postop he progressed appropriately. Leg pain improved. PIOTR drain decreasing probably. Pain well-controlled. Subsidy discharged home. Discharge orders instructions found in chart for further review. Total Time Total Time Spent Total Time Spent (In Minutes): 20 minutes Discharge Plan Discharge Items Patient Disposition: Home - Self-Care Reason For Visit: POSTOP Discharge Diagnosis: Spinal stenosis with herniated nucleus pulposus and radiculopathy Activity: As commented below Non-emergency contact: Primary Care Provider Call non-emergency contact if: you have any medication questions Follow-up/Referrals: Aristeo Babcock MD [Primary Care Provider] - Diet: Regular Addtl Attending Provider Instructions: ACTIVITY RECOMMENDATIONS: SELF CARE INSTRUCTIONS AFTER THORACIC/LUMBAR FUSIONS 1. You may walk to your tolerance. It is good exercise for your legs and back. Expect some back and intermittent leg aches and pains. 2. You may perform "counter-top" level activities (make a sandwich, jeanine with a project, etc.). 3. No bending or lifting of more than 10 pounds or back twisting of any nature (roll like a log when turning in bed). 4. You may ride in a car for 20-30 minutes at a time. No driving until after your first visit with your doctor. 5. Frequent changes of position and restricting sitting to 30 minutes at a time will help limit the amount of back spasms and stiffness you may experience. 6. You may discontinue the use of ambulatory aids (cane, crutches, etc.) once your strength and confidence allow. 7. You may gas pumping station helper the shower and let water strike your incision when you arrive home at least once daily. Do not take a tub bath, sit in a hot tub or go into a swimming pool until after your first recheck in the office. SPECIAL CARE INSTRUCTIONS: VERY IMPORTANT TO READ AND REVIEW A. Your surgical incision has been closed with a cosmetic suture under the skin that will dissolve in about 6 weeks. In 14 days, you can use a pair of clean scissors and cut the suture that is left outside of the skin at the ends of your incision. 1. The small skin tapes can be removed 7 days after surgery if they have not fallen off by that point. 2. You may keep the wound open to air as much as possible to promote healing after post-op day number 5 unless told otherwise by your doctor. 3. If you think the wound looks like it is becoming infected (redness or worsening drainage) and/or you are experiencing fever, chill or worsening back pain and muscle spasms, contact the office so that we may evaluate you as soon as possible. B. Complications are uncommon, but please contact us if you have any signs or symptoms of: 1. wound infection (fever higher than 102.5 degrees F, redness, separation of wound, drainage, or increasing pain from the incision) 2. blood clots in legs (pain, swelling, redness and warmth in legs) 3. urinary tract infection (fever higher than 102.5 degrees F, burning upon urination or increased frequency of urination) 4. nerve problems (inability to walk on your toes or heels, numbness, loss of bowel or bladder control) 5. any other symptoms that concern you C. Please call the office at if you have any concerns or questions about your operation or recovery. D. No smoking! Smoking drastically decreases the chance of a solid fusion. E. Do not take any anti-inflammatory medications (Indocin, Advil, Motrin, Aspirin, Naprosyn, etc.) as these may inhibit the chance of a solid fusion. Tylenol is okay to take for pain. MANAGING PAIN AFTER SPINAL SURGERY 1. Narcotic medication is intended for short-term use and will be provided for surgical pain. Surgical pain usually lasts for a period of 4-6 weeks. Narcotic medication includes Percocet, Vicodin, Darvocet, Tylenol #3 or Lortab. 2. Longer-term pain is more appropriately treated with non-narcotic medication such as Tylenol ES. 3. Muscle spasm is not appropriately treated with narcotics. Muscle relaxers such as Soma, Flexeril or Skelaxin can be used along with Tylenol ES. 4. Remember that we all live with some "aches and pains". This is not unusual or uncommon after an injury or as we get older. a. Back pain is expected and may include muscle spasms for 4 to 6 weeks after surgery. The pain should gradually improve. If the pain worsens for no apparent reason, please contact the office. b. Intermittent leg pain may also be experienced and should not be concerned about unless it worsens for no apparent reason. If so, please contact the office. 5. We will provide appropriate medication within the normal guidelines of their prescribed use. We will also be very cautious and aware of potential abuse and extended duration of patients' medication needs. a. Pain medications are for your comfort and to assist with sleep and rest so that the tissue can heal. They are not provided in order to return to normal activity and should not be used through the day. To do so or worsening pain at night can result from ongoing tissue damage and development of tolerance to the prescribed medicine. 6. Please allow 2-3 days to process refills. Prescriptions will not be mailed but must be picked up at the office. FOLLOW UP VISIT: Keep your scheduled follow-up appointment. Any questions, please call the office at . Pending Studies at Discharge: No Stand-Alone Forms: My AGLOGIC, Smoking Cessation Medications and DC Order Prescriptions: New tramadol 50 mg tablet 50 mg PO Q6H PRN (Reason: pain, moderate) Qty: 30 0RF oxycodone 5 mg tablet 5 mg PO Q6H PRN (Reason: pain) Qty: 30 0RF Continued atorvastatin 80 mg tablet 80 mg PO QAM metformin 1,000 mg tablet 1,000 mg PO BID cyclobenzaprine 10 mg tablet 10 mg PO Q8H PRN (Reason: Pain) albuterol sulfate 90 mcg/actuation Hfa Aerosol Inhaler 2 puff INHALATION DAILY PRN (Reason: Other) Trulicity 4.5 mg/0.5 mL pen injector 4.5 mg SUBCUT WK Rx Instructions: Saturdays for Diabetes fenofibrate nanocrystallized 145 mg Tablet 145 mg PO QAM duloxetine 60 mg Capsule,Delayed Release(Dr/Ec) 60 mg PO QAM Discharge Orders: Discharge Order (Routine); Ordered 05/24/23 Ordered By: German Mabry/Other Patient Handouts: DVT Post Op Prevention, After Back Surgery: Going Home, Back Surg Daily Living Tips Admission Data Admit Date/Time: 05/22/23 17:09 Attending Provider: German Aguilar Admit Provider: German Aguilar Primary Care Provider: Aristeo Babcock Other Providers: Vishnu Vanessa Other Interventions: Discharge Summary Assessment (RN) Last Done: 05/24/23 09:55
== END 2023-05-24 10:36 | disposition home or self-care (01) | DRG 454 ==
LOC: ASU 10:37 → 3W 17:09
DX: Z79.899 Other long term (current) drug therapy; Z87.891 Personal history of nicotine dependence; E55.9 Vitamin D deficiency, unspecified; D62 Acute posthemorrhagic anemia; E83.42 Hypomagnesemia; Z79.85 Long-term (current) use of injectable non-insulin antidiabetic drugs; Z77.22 Contact with and (suspected) exposure to environmental tobacco smoke (acute) (chronic); Z88.5 Allergy status to narcotic agent; Z79.84 Long term (current) use of oral hypoglycemic drugs; Z88.2 Allergy status to sulfonamides; M48.062 Spinal stenosis, lumbar region with neurogenic claudication; E11.65 Type 2 diabetes mellitus with hyperglycemia; R03.0 Elevated blood-pressure reading, without diagnosis of hypertension; Z88.1 Allergy status to other antibiotic agents; B35.4 Tinea corporis; J45.909 Unspecified asthma, uncomplicated; M51.16 Intervertebral disc disorders with radiculopathy, lumbar region; Z98.1 Arthrodesis status; E78.5 Hyperlipidemia, unspecified; Z88.0 Allergy status to penicillin